=== PATIENT | male | born 1950 | race Caucasian/White ===

== ENCOUNTER 2022-04-25 20:21 | Inpatient (IN) | payer MEDICARE, OTHER, SELFPAY ==
[2022-04-25] VITALS (24 sets, daily range): BP systolic 138–186; BP diastolic 61–92; PULSE 70–102; RESP 13–30; TEMP 36.8–39.6; O2SAT 90–100
--- NOTE | ~2022-04-25 | XR_ITS ---
EXAMINATION: 05/04/2022 08:30 DATE: 05/04/2022 09:19 CDT INDICATION: Evaluate cystic duct patency TECHNIQUE: Intraoperative cholangiogram with a single contrast run(s) provided for review. FINDINGS: There is cannulation and contrast administration into the cystic duct remnant. There are se veral rounded filling defects in the distal common bile duct, consistent with choledocholithiasis. Th ere are small filling defects in the cystic duct, compatible with stones. IMPRESSION: 1. Multiple filling defects in the cystic duct and the distal common bile duct, consistent with ston es. Please refer to procedural report for details. Reviewed, dictated and finalized at location B. IMPRESSION: 1. Multiple filling defects in the cystic duct and the distal common bile duct , consistent with stones. Please refer to procedural report for details.
--- NOTE | ~2022-04-25 | XR_ITS ---
EXAMINATION: XR chest 1V portable Exam Date/Time: 04/25/2022 20:45 CDT HISTORY: AMS, PT POOR HISTORIAN Comparison: 02/11/2004. RESULT: Lines, tubes, and devices: None. Lungs and pleura: Senescent change, otherwise clear. Cardiomediastinal silhouette: Stable. Other: No acute osseous or upper abdominal finding. IMPRESSION: No acute cardiopulmonary process. Reviewed, dictated and finalized at location K.
--- NOTE | ~2022-04-25 | XR_ITS ---
XR chest 1V portable DATE: 04/28/2022 14:29 INDICATION: Sepsis TECHNIQUE: Portable upright AP views on 05/08/2022 at 1424 hours COMPARISON: 04/25/2022 portable supine AP chest FINDINGS: Heart size appears within normal range considering magnification associated with AP project ion. There is aortic arch calcification. There is pulmonary vascular congestion and redistribution and prominence of the minor fissure, sugges ting congestive change and subpleural edema. There are mild perihilar and to a greater extent lower lung zone infiltrates which may be due to pulm onary edema and/or pneumonia. No pleural effusion is evident. No pneumothorax. IMPRESSION: Pulmonary vascular congestion, subpleural edema and bilateral central and lower lung infi ltrates which may be due to pulmonary edema. Pneumonia is not excluded. Reviewed, dictated and finalized at location B. IMPRESSION: Pulmonary vascular congestion, subpleural edema and bilateral centr al and lower lung infiltrates which may be due to pulmonary edema. Pneumonia is not excluded.
--- NOTE | ~2022-04-25 | XR_ITS ---
EXAMINATION: XR ERCP DATE: 05/05/2022 12:40 INDICATION: Choledocholithiasis TECHNIQUE: Three intraoperative fluoroscopic images obtained during endoscopic retrograde cholangiopa ncreatography (ERCP) are submitted for review. Total fluoroscopic time was 131.6 seconds. COMPARISON: None. FINDINGS: Fluoroscopic images demonstrate stones in the mildly dilated common bile duct. A cholecysto stomy tube is noted. Contrast is seen in the gallbladder which demonstrates stones. IMPRESSION: 1. Choledocholithiasis with mildly dilated common bile duct. Please refer to the ERCP procedure note for additional details. Reviewed, dictated and finalized at location A. IMPRESSION: 1. Choledocholithiasis with mildly dilated common bile duct. Please refer to th e ERCP procedure note for additional details.
--- NOTE | ~2022-04-25 | XR_ITS ---
EXAM: XR pelvis 1-2V DATE: 04/25/2022 20:55 HISTORY: AMS w/ frequent falls . COMPARISON: None available. FINDINGS: Normal mineralization. No fracture or dislocation. No lytic or blastic lesion. Severe lowe r lumbar degenerative disc disease. Moderate right and mild left hip osteoarthritis. Pelvic phlebolit hs. No erosion or periosteal change. Soft tissues within normal limits. IMPRESSION: No acute osseous finding in the pelvis. Reviewed, dictated and finalized at location K.
--- NOTE | ~2022-04-25 | US_ITS ---
EXAMINATION: US right upper quadrant DATE: 04/28/2022 08:46 INDICATION: Acute cholecystitis. TECHNIQUE: Multiple grayscale and Doppler ultrasound images of the abdomen were obtained. COMPARISON: CT abdomen and pelvis 04/27/2022 FINDINGS: The visualized portions of the head and body of the pancreas are normal. The liver is angela l without focal lesion. There is normal flow in main portal vein. The gallbladder is distended. There are gallstones in the gallbladder. Gallbladder wall thickening is noted. There was no sonographic Mu rphy sign. The common duct is normal and measures 5 mm. There is a small volume of perihepatic ascite s. IMPRESSION: 1. Acute cholecystitis. 2. Small volume of perihepatic ascites. Reviewed, dictated and finalized at location A.
--- NOTE | ~2022-04-25 | US_ITS ---
EXAMINATION: US perc cholecystostomy w imag DATE: 04/28/2022 16:11 INDICATION: Acute cholecystitis. TECHNIQUE: The procedure including the risks, benefits, and alternatives was discussed with the patie nt and his daughter (by phone). Risks discussed included bleeding including hemorrhage and bile perit onitis. Oral and written consent were obtained. A timeout was performed to verify the patient's na me, date of , and procedure to be performed. The skin overlying the liver and gallbladder was pr epped and draped in usual sterile fashion. Anesthetic was administered with 1% lidocaine subcutaneou sly. An 8.5 Fr catheter was inserted through liver parenchyma into the gallbladder by trocar [employer] ue. The metal stiffener and trocar needle were removed, and the pigtail tip was locked. Bile was aspi rated and sent for culture. The catheter was stitched to the skin with suture. There were no immediat e complications. FINDINGS: Ultrasound images demonstrate the catheter within the gallbladder. 10 mL bile was aspirated . IMPRESSION: 1. Successful ultrasound-guided cholecystostomy tube placement. 2. 10 mL clear bile was sent for aerobic and anaerobic cultures. 3. A catheter cholangiogram may be performed not less than 48 hours after tube placement if clinicall y indicated to assess cystic duct patency. If cholecystectomy is not eventually performed and the inf ectious episode has resolved, the tube may be removed over a guidewire, preferably not less than 3 we eks after placement to allow time for a mature catheter tract to form to prevent bile leakage and per itonitis. Reviewed, dictated and finalized at location A. IMPRESSION: 1. Successful ultrasound-guided cholecystostomy tube placement. 2. 10 mL clear bile was sent for aerobic and anaerobic cultures. 3. A catheter cholangiogram may be performed not less than 48 hours after tube placement if clinically indicated to assess cystic duct patency. If cholecystec milagros is not eventually performed and the infectious episode has resolved, the t ube may be removed over a guidewire, preferably not less than 3 weeks after diego cement to allow time for a mature catheter tract to form to prevent bile leakag e and peritonitis.
--- NOTE | ~2022-04-25 | CT_ITS ---
EXAMINATION: CT abdomen pelvis wo con DATE: 04/27/2022 14:17 INDICATION: sepsis, bactermia TECHNIQUE: Computed tomography (CT) of the abdomen and pelvis was performed without intravenous contr ast. Automated exposure control and iterative reconstruction technique were employed. The dose-length product was 768.99 mGy-cm. COMPARISON: None. FINDINGS: Lower thorax: Bibasilar atelectasis/scar. Coronary artery calcifications. Small right and trace left pleural effusions. Liver: Normal. Biliary/Gallbladder: Gallbladder wall edema with mild surrounding inflammatory change. Gallstones. No bile duct dilation. Pancreas: No mass or duct dilation. Spleen: Normal. Adrenals:1 cm right adrenal adenoma. Kidneys: 1.3 cm exophytic right midpole cyst. Mild perinephric stranding. GI tract: No small or large bowel dilation. Normal appendix. Mild pericolonic inflammatory change of the hepatic flexure. Mesentery/Peritoneum: No ascites, mass, or free air. Retroperitoneum: No mass. Pelvis: Pelvic organs are within normal limits. Soft Tissues: Mild bilateral gynecomastia. Mild body wall edema. Bones: No acute osseous finding. IMPRESSION: Small right and trace left pleural effusions. Gallbladder wall edema with inflammatory change may ref lect acute cholecystitis in the appropriate clinical context, consider right upper quadrant ultrasoun d. Adjacent pericolonic inflammatory change at the hepatic flexure is presumed to be reactive to the gallbladder process. Reviewed, dictated and finalized at [facility]. IMPRESSION: Small right and trace left pleural effusions. Gallbladder wall edema with infla mmatory change may reflect acute cholecystitis in the appropriate clinical cont ext, consider right upper quadrant ultrasound. Adjacent pericolonic inflammator y change at the hepatic flexure is presumed to be reactive to the gallbladder p rocess.
--- NOTE | ~2022-04-25 | CT_ITS ---
EXAMINATION: CT cervical spine wo con DATE: 04/25/2022 21:40 INDICATION: Fall. Head and neck injury. TECHNIQUE: Computed tomography (CT) of the cervical spine was performed without intravenous contrast. Automated exposure control and iterative reconstruction technique were employed. Exam dose: 421.63 mGy-cm total exam DLP. COMPARISON: None FINDINGS: There is fusion of the apophyseal joints on the right at C2-3 and degenerative change of th e apophyseal joints elsewhere in the cervical spine. Moderately severe degenerative disc disease at C6-7 and moderate degenerative disc disease at the rem aining cervical interspaces. Uncovertebral joint spurring in the mid and lower cervical spine. No fracture or dislocation or locked facet or prevertebral soft tissue swelling. C1 and C2 are normal ly aligned and the odontoid process is intact.. IMPRESSION: Cervical spondylosis; no fracture or dislocation or locked facet Reviewed, dictated and finalized at Location A. Reviewed, dictated and finalized at location A.
--- NOTE | ~2022-04-25 | CT_ITS ---
EXAMINATION: CT brain wo con DATE: 04/25/2022 21:40 INDICATION: Altered mental state, frequent falls TECHNIQUE: Computed tomography (CT) of the head was performed without intravenous contrast. The mA wa s adjusted according to patient size. Iterative reconstruction technique was employed. Exam dose: 68 1.00 mGy-cm total exam DLP. COMPARISON: None FINDINGS: No intracranial mass lesion or hemorrhage or cerebrovascular accident. No midline shift or mass effect. Bilateral carotid siphon internal carotid artery calcifications. There is nonspecific diminished atte nuation of the cerebral white matter, likely due to chronic small vessel ischemic changes. No subdura l or epidural hematoma is detected. Mild to moderate cerebral cortical volume loss. There is an opacified posterior left ethmoid air cells and mild ethmoid septal soft tissue thickening , primarily on the left. Minimal inferior right maxillary sinus mucosal periosteal soft tissue thicke arash. The paranasal sinuses and mastoid air cells are otherwise normally developed and aerated. IMPRESSION: Cerebral atherosclerosis and chronic small vessel ischemic changes of cerebral white mat ter No acute intracranial finding Reviewed, dictated and finalized at Location A. Reviewed, dictated and finalized at location A. IMPRESSION: Cerebral atherosclerosis and chronic small vessel ischemic changes of cerebral white matter No acute intracranial finding
--- NOTE | 2022-04-25 20:42 | ECG_ITS ---
Measurements Intervals [place] Rate: 101 P: 31 HI: 137 QRS: -25 QRSD: 94 T: 37 QT: 352 QTc: 456 Interpretive Statements POOR DATA QUALITY BECAUSE OF BASELINE ARTIFACT SINUS TACHYCARDIA BORDERLINE LEFT AXIS DEVIATION [QRS AXIS < -20] NONSPECIFIC ST SEGMENT CHANGE NO PREVIOUS ECG AVAILABLE FOR COMPARISON Electronically Signed On 04-26-2022 8:23:34 CDT by Jayy Badillo M.D.
--- NOTE | 2022-04-25 20:46 | ED.GENADULT ---
HPI - General Adult General Chief complaint: Altered Mental Status Stated complaint: confusion s/p fall Time Seen by Provider: 04/25/22 20:41 History of Present Illness HPI narrative: This is a 71-year-old male history of Parkinson's per day ED for altered mental status and frequent falls. Patient was found down in his room. He was febrile. He is unable to provide any information as he is nonverbal at this time. Related Data Allergies Allergy/AdvReac Type Severity Reaction Status Date / Time No Known Allergies Allergy Verified 04/25/22 21:10 Review of Systems Review of Systems: ROS unobtainable: Yes unobtainable due to medical condition PMFSH Past Medical History Medical History Anxiety Hypertension Neuropathy Parkinsons Social History Social History Social History: Unknown Exam Narrative: APPEARANCE: patient is lying supine in bed. He is nonverbal. He is warm to the touch. Head atraumatic. EYES: PERRLA/EOMI, NOSE: Normal no drainage NECK: Supple, Trachea midline RESPIRATORY: CTAB, No increased work of breathing. CARDIOVASCULAR: S1S2 appreciated ABDOMINAL: Soft, nontender, nondistended, MUSCULOSKELETAl: No obvious deformities exam normal with no evidence of infection or crepitus. NEURO: Alert. Moving 4/4 extremities SKIN:: Skin is warm, flushed. no skin breakdown. PSYCHIATRIC: Nonverbal EKG interpretation: Rhythm Sinus Tachy, Rate 101, [place], [place] -[normal], QRS [narrow], QTC [normal], T waves -[negative for concerning inversions], ST Segments - [Negative for concerning elevations] Final interpretations: Sinus Tachycardia Course Vital Signs Vital signs: Vital Signs Temperature 103.2 F H 04/25/22 20:25 Pulse Rate 100 04/25/22 20:25 Respiratory Rate 19 04/25/22 20:25 Blood Pressure 186/84 H 04/25/22 20:25 Pulse Oximetry 97 04/25/22 20:25 Temperature 98.3 F 04/25/22 23:47 Pulse Rate 78 04/25/22 23:01 Respiratory Rate 21 H 04/25/22 23:01 Blood Pressure 138/74 04/25/22 23:01 Pulse Oximetry 97 04/25/22 22:04 Procedures Lumbar Puncture Lumbar Puncture #1: Lumbar Puncture Date: 04/26/22 Time Out Performed: Yes Patient Position: left lateral decubitus Skin Prep: Povidone-Iodine 1%, Sterile Prep/Drape and Asepetic Technique Anesthetic: lidocaine 1% and with epi Amount of anesthesia used (mL): 3 Spinal Needle Gauge: 20G Interspace Used: L4-L5 Complications: unable to obtain CSF Medical Decision Making MDM Narrative Medical decision making narrative: this is a 71-year-old male presents to ED for altered mental status. He is febrile. A sepsis workup has been ordered. He has been given a 30 cc/kilogram bolus. CTs of the head C-spine are ordered. Patient's workup was significant for an elevated white blood cell count. Patient will be started on cefepime and vanco. CT head and C-spine were unremarkable. The patient's sepsis was negative for a source. Given this patient has altered mental status and LP was attempted. LP was unsuccessful. At this time patient vitalized vital signs have improved. His mentation is improved slightly although is still confused. The patient will be admitted hospital for further management. Patient will be admitted by Dr. Shane. Vital Signs Vital Signs: Vital Signs Temperature 103.2 F H 04/25/22 20:25 Pulse Rate 100 04/25/22 20:25 Respiratory Rate 19 04/25/22 20:25 Blood Pressure 186/84 H 04/25/22 20:25 Pulse Oximetry 97 04/25/22 20:25 Temperature 98.3 F 04/25/22 23:47 Pulse Rate 78 04/25/22 23:01 Respiratory Rate 21 H 04/25/22 23:01 Blood Pressure 138/74 04/25/22 23:01 Pulse Oximetry 97 04/25/22 22:04 Lab Data Result diagrams: 04/25/22 21:08 04/25/22 21:08 Labs: L
[2022-04-25 21:24] LABS: Basophils Percent Auto 0.2 % (0.2-1.2); Hematocrit 35.4 % (42.0-52.0); Hemoglobin 12.1 g/dL (14.0-18.0); Immature Granulocyte Absolute 0.06 K/mm3 (0.00-0.031); Immature Granulocyte Percent A 0.5 % (0-0.5); Lymphocytes Absolute Auto 0.49 K/mm3 (0.9-3.2); Lymphocytes Percent Auto 3.9 % (18.3-44.2); Mean Corpuscular HGB Conc 34.2 g/dl (32-36); Mean Corpuscular Hemoglobin 31.7 pg (26-34); Mean Corpuscular Volume 92.7 fl (80-100); Mean Platelet Volume 10.2 fl (7.4-10.4); Monocytes Absolute Auto 0.7 K/mm3 (0.1-0.6); Monocytes Percent Auto 5.6 % (2.6-8.5); Neutrophils Absolute Auto 11.3 K/mm3 (1.3-6.7); Neutrophils Percent Auto 89.8 % (45.5-73.1); Platelet Count Result 169 k/mm3 (150-375); Red Blood Count 3.82 M/mm3 (4.6-6.20); Red Cell Distribution Width 12.5 % (11.5-14.5); White Blood Count 12.6 K/mm3 (4.5-10.0)
[2022-04-25 21:34] LABS: Lactic Acid Reflex 2.1 mmol/L (0.7-2.0)
[2022-04-25 21:35] LABS: Appearance Urine Clear (Clear); Bilirubin Urine 1+ (Negative); Blood Urine Negative (Negative); Color Urine Yellow (Yellow); Glucose Urine UA Negative (Negative); Ketones Urine 1+ mg/dL (Negative); Leukocyte Esterase Ur Negative LEU/UL (Negative); Nitrate Urine Negative (Negative); Protein Urine 1+ mg/dL (Negative)
[2022-04-25 21:35] LABS: INR 1.2
[2022-04-25 21:37] LABS: Alanine Aminotransferase 11 U/L (6-50); Albumin Level 3.9 g/dL (3.5-5.1); Alkaline Phosphatase 97 U/L (38-126); Anion Gap 11 mmol/L (8-16); Aspartate Amino Transferase 28 U/L (17-59); Bilirubin,Total 1.4 mg/dL (0.2-1.3); Blood Urea Nitrogen 21 mg/dL (9-20); CRP 5.6 mg/dL (<1.0); Calcium 8.9 mg/dL (8.4-10.2); Carbon Dioxide 27 mmol/L (22-30); Chloride 96 mmol/L (98-107); Estimated CRCL calculation 63 ml/min; Estimated Glomerular Filt Rate > 60; Glucose 100 mg/dL (65-110); Lipase 63 U/L (23-300); Potassium 3.5 mmol/L (3.4-5.0); Sodium 134 mmol/L (137-145)
[2022-04-25 21:43] LABS: Add Urine Microscopic? YES; Bacteria Urine Trace /hpf; Mucus Urine Rare /lpf; WBC Urine 0-3 /hpf
[2022-04-25 21:44] LABS: NT Pro B Type Natriuretic Pept 600 pg/mL (5-100)
[2022-04-25] MEDS: SODIUM CHLORIDE 0.9% IV 1,000 ML 999 ML IV CONT ×3 (21:56→21:57)
[2022-04-25 22:03] LABS: SARS-CoV-2 RNA PCR Negative
[2022-04-25 22:27] LABS: Influenza A QL RT-PCR Negative (Negative); Influenza B QL RT-PCR Negative (Negative)
[2022-04-26] VITALS (34 sets, daily range): BP systolic 89–166; BP diastolic 35–85; PULSE 65–87; RESP 9–26; TEMP 36.1–37.6; O2SAT 95–100; BMI 28.0; BMI 28.5
[2022-04-26 00:21] LABS: Reflex Lactic Acid Yes or No Add Lactic
--- NOTE | 2022-04-26 00:32 | PM.IMHP ---
H&P: HPI History of Present Illness Date/Time: 04/26/22 00:32 Chief Complaint: Altered mental status Narrative: 71-year-old male with past medical history of Parkinson's disease, hypertension, and anxiety who presented to the ER after multiple falls and acute onset of altered mental status. EMS was called on the patient earlier in the day as he had slid out of his chair having a fall. EMS helped with lift assist and left. Later in the evening the patient again fell and the patient's girlfriend called EMS again. At that time the patient was noted to be febrile with a T-max of 103.2? on arrival to the ER. In route to the hospital the patient became unresponsive and was unresponsive on initial presentation. After the patient's fever was treated in the patient received IV fluids he was arousable and actually answered all of my questions appropriately. The patient was alert and oriented x4 at the time of my evaluation. He reports that he has been feeling his usual state of health except for when he fell out of his lift chair this morning he was weaker than usual in could not get himself up. He denies any headache, visual changes, lightheadedness, dizziness, chest pain, shortness of breath, cough, congestion, sore throat, rhinorrhea, did dysuria or flank pain. He denies any head pain. He denies any nausea or vomiting. He has not had any changes in stool output. He denies any recent ill contacts. He states that he is vaccinated against COVID he got the [employer] vaccine and then received a booster. Given his initial presentation with unresponsive status ER physician did attempted lumbar puncture. Lumbar puncture was unsuccessful. Patient had been given empiric antibiotic therapy cefepime and vancomycin for sepsis of uncertain etiology. Patient does not nuchal rigidity. COVID and influenza PCR were negative in the ER. The patient did have lactic acidosis initially and received 30 mL/kilos fluid bolus in the ER. Lactic acidosis resolved. The patient was seen and examined just prior to midnight while patient was still in the ER. The patient was not admitted to the hospital until later (well after midnight) after LP attempt. Review of Systems Review of Systems: 12 systems were reviewed with pertinent positives and negatives per HPI. Except as documented in the HPI, all other systems were reviewed and are negative. [facility] Past Medical History Medical History (Updated 04/26/22 @ 03:29 by Sharon Shane DO) Anxiety Hypertension Neuropathy Parkinsons Surgical History Surgical History (Updated 04/26/22 @ 03:11 by Sharon Shane DO) History of lumbar surgery Family History Family History (Updated 04/26/22 @ 03:11 by Sharon Shane DO) Other Unknown family medical history Social History Social History (Updated 04/26/22 @ 03:12 by Sharon Shane DO) Social History: Patient denies any history of tobacco alcohol or illicit substance use. He lives with his girlfriend of 7 years. He uses a lift chair at home and ambulates with a walker. Surrogate decision maker: Daughter Meds Home Medications and Allergies Home Medications Medication Instructions Recorded Confirmed Type buspirone 5 mg tablet mg 04/26/22 History carbidopa 25 mg-levodopa 250 mg tablet 04/26/22 History tablet escitalopram oxalate 20 mg tablet mg 04/26/22 History Allergies Allergy/AdvReac Type Severity Reaction Status Date / Time No Known Allergies Allergy Verified 04/25/22 21:10 Vital Signs Vital Signs - 24 hr 04/25/22 20:25 04/25/22 21:09 04/25/22 21:10 Temperature 103.2 F H Pulse Rate 100 91 91 Respiratory Rate 19 22 H 21 H Blood Pressure 186/84 H 165/69 H Pulse Oximetry 97 95 95 04/25/22 21:11 04/25/22 21:15 04/25/22 21:16 Temperature Pulse Rate 89 90 90 Respiratory Rate 24 H 25 H 23 H Blood Pressure 170/64 H Pulse Oximetry 95 90 95 04/25/22 21:37 04/25/22 21:45 04/25/22 2
[2022-04-26 00:48] LABS: Lactic Acid 1.7 mmol/L (0.7-2.0)
[2022-04-26] MEDS: KETOROLAC 15 MG/ML VIAL (*BKC) IV PUSH (01:29)
[2022-04-26] MEDS: MIDAZOLAM HCL (*CRX) 2 MG/2 ML VIAL IV PUSH (01:46)
[2022-04-26] MEDS: SODIUM CHLORIDE 0.9% IV 1,000 ML 999 ML IV CONT (02:00)
--- NOTE | 2022-04-26 02:00 | PC.NURSE ---
bilateral soft wrist restraints removed by RN while MD and RN at bedside to do Lumbar Puncture. Pt tolerated procedure very well. much more alert and oriented than upon arrival to ER. Pt knows he is in the Hospital in [place] and thought it was March of 2022, but reorients well. 0230- restraints left off at this time due to pt no longer pulling at tubes and following directions well. Pt to lay flat for at least 1hr after LP.
--- NOTE | 2022-04-26 04:49 | PC.NURSE ---
Home medications reviewed with patient and placed in home med drawer. Chart marked as such and patient notified. Dr Shane called to make aware patient takes parkinsons meds as he needs them .
[2022-04-26 05:11] LABS: Hematocrit 31.7 % (42.0-52.0); Hemoglobin 10.5 g/dL (14.0-18.0); Mean Corpuscular HGB Conc 33.1 g/dl (32-36); Mean Corpuscular Hemoglobin 31.4 pg (26-34); Mean Corpuscular Volume 94.9 fl (80-100); Mean Platelet Volume 10.4 fl (7.4-10.4); Platelet Count Result 115 k/mm3 (150-375); Red Blood Count 3.34 M/mm3 (4.6-6.20); Red Cell Distribution Width 12.7 % (11.5-14.5); White Blood Count 9.1 K/mm3 (4.5-10.0)
[2022-04-26 05:13] LABS: Alanine Aminotransferase 9 U/L (6-50); Albumin Level 2.9 g/dL (3.5-5.1); Alkaline Phosphatase 87 U/L (38-126); Anion Gap 7 mmol/L (8-16); Aspartate Amino Transferase 64 U/L (17-59); Bilirubin,Total 1.6 mg/dL (0.2-1.3); Blood Urea Nitrogen 18 mg/dL (9-20); Calcium 7.9 mg/dL (8.4-10.2); Carbon Dioxide 23 mmol/L (22-30); Chloride 102 mmol/L (98-107); Estimated CRCL calculation 63 ml/min; Estimated Glomerular Filt Rate > 60; Glucose 64 mg/dL (65-110); Potassium 2.9 mmol/L (3.4-5.0); Sodium 132 mmol/L (137-145)
[2022-04-26] MEDS: ACETAMINOPHEN 325 MG TABLET 650 MG PO (05:43)
--- NOTE | 2022-04-26 06:01 | PC.NURSE ---
This patient, Bernard Cristobal, was admitted to IMU Room 207-01 at 0405. Patient/family oriented to hospital policies and general routines including ID bracelet, bed and alarms, visiting hours, pain management, procedures, bathroom and other care routines, personal items, smoking policy, room service/diet, and visiting hours. Information on how to activate the Rapid Response Team has been discussed. Patient/Family are encouraged to report perceived risks to care and to ask questions if they do not understand what they are told or what they should do.
[2022-04-26 06:24] LABS: Band Neutrophils Percent 14 % (0-6); Lymphocytes Absolute Manual 0.18 K/mm3 (1.1-4.5); Lymphocytes Percent Manual 2 % (18-44); Monocytes Absolute Manual 0.18 K/mm3 (0.1-0.90); Monocytes Percent Manual 2 % (3-9); Neutrophils Absolute Manual 8.73 K/mm3 (1.3-6.7); Neutrophils Percent Manual 82 % (46-73); Total Cells Counted 100
[2022-04-26] MEDS: ENOXAPARIN 40 MG/0.4 ML SYRINGE SUB-Q (08:25)
[2022-04-26] MEDS: POTASSIUM CHLORIDE 20 MEQ TABLET 40 MEQ PO (08:25)
[2022-04-26] MEDS: lisinopriL 20 MG TABLET 40 MG PO (08:25)
[2022-04-26] MEDS: ESCITALOPRAM OXALATE 10 MG TABLET 20 MG PO (08:25)
--- NOTE | 2022-04-26 11:07 | PM.IMPN ---
Progress Note: A&P Assessment and Plan (1) Sepsis: Qualifiers: Sepsis acute organ dysfunction status: with acute organ dysfunction Sepsis type: sepsis due to unspecified organism Severe sepsis acute organ dysfunction type: encephalopathy Severe sepsis shock status: without septic shock Qualified Code(s): A41.9 - Sepsis, unspecified organism; R65.20 - Severe sepsis without septic shock; G93.40 - Encephalopathy, unspecified Code(s): A41.9 - Sepsis, unspecified organism Status: Acute Assessment and Plan: Continue with IV antibiotics cultures are pending (2) Altered mental status: Qualifiers: Altered mental status type: delirium Qualified Code(s): R41.0 - Disorientation, unspecified Code(s): R41.82 - Altered mental status, unspecified Status: Acute Assessment and Plan: workup is in progress, will continue with IV antibiotics (3) Parkinsons: Code(s): G20 - Parkinson's disease Status: Acute Assessment and Plan: stable on current meds (4) Hypertension: Code(s): I10 - Essential (primary) hypertension Status: Acute Assessment and Plan: stable on med Plan The patient presented to the ER with altered mental status and met sepsis criteria with fever, tachycardia, leukocytosis. He received 30 mL/kilos fluid bolus and blood cultures were obtained. LP was attempted but was unsuccessful. The patient does not have any specific symptoms to indicate meningitis such as nuchal rigidity. He could simply have transient altered mental status verses delirium due to acute infection. Expect Naheed given the short nature of his altered mental status. He could also been unresponsive due to syncopal event. Telemetry demonstrated sinus tachycardia with artifact from the patient's Parkinson's. Patient's condition improved after IV fluids and antipyretic therapy. If altered mental status recurs or persist and no other source of infection is found we may need to proceed with repeat attempted LP on Wednesday. Otherwise will wait blood cultures and monitor. Will resume the patient's home Parkinson's medications once home med rec has been verified. The patient is currently not hypertensive will hold antihypertensives and monitor vitals closely. Additional Plan Patient has been admitted as inpatient status and will require greater than 2 midnight hospital stay for evaluation of sepsis of uncertain primary. Subjective Date/time seen: 04/26/22 11:07 Patient was seen during the morning rounds today. Still has mild confusion. No shortness of breath or chest pain. No abdominal pain, no nausea, no vomiting. Review of Systems Review of Systems: All systems reviewed & are unremarkable except as noted in HPI and below (the history and physical exam.) Exam Narrative: Weight 93.3 kg BMI 29.5 Const: Other: No acute distress, well-developed well-nourished, appears stated age HENMT: Other: Head is normocephalic atraumatic, mucous membranes are dry, posterior oropharynx not well visualized, fair dentition Eyes: Other: Pupils are equal and reactive, no scleral icterus, no conjunctival pallor Neck: Other: Node anterior cervical lymphadenopathy, no thyromegaly Resp: Other: Clear to auscultation bilaterally, no increased work of breathing Cardio: Other: Regular rate, regular rhythm, 2+ bilateral radial pedal pulses GI: Other: Soft, nontender, nondistended, no organomegaly, no rebound, no guarding, positive bowel sounds Skin: Other: Normal temperature, non jaundice, no pallor Neuro: Other: Alert and oriented x4, speech is clear, no facial asymmetry, pill rolling tremor, no gross motor deficits noted, no nuchal rigidity Extrem: Other: No clubbing, cyanosis or edema, 5/5 strength bilateral upper and lower extremities, soft wrist restraints in place bilateral Psych: Other: Pleasant and cooperative, appropriate mood, anxious Objectiv
[2022-04-26] MEDS: MAGNESIUM OXIDE 200 MG TABLET PO ×2 (12:09→19:59)
[2022-04-26] MEDS: POTASSIUM CHLORIDE INJ 40 MEQ in SODIUM CHLORIDE 0.9% IV 500 ML 130 MEQ IVPB (12:09)
[2022-04-26] MEDS: CARBIDOPA/LEVODOPA 25/250 MG TABLET 1 TABLET PO ×3 (12:36→19:59)
--- NOTE | 2022-04-26 16:52 | PC.NURSE ---
This patient, Bernard Cristobal, was received from IMU on 04/26/22 at 1652. Patient/family oriented to unit policies and routines
[2022-04-27] VITALS (11 sets, daily range): BP systolic 120–137; BP diastolic 57–68; PULSE 53–75; RESP 16–18; TEMP 36.2–37.3; O2SAT 98–100
[2022-04-27] MEDS: CARBIDOPA/LEVODOPA 25/250 MG TABLET 1 TABLET PO ×4 (02:49→22:06)
[2022-04-27 06:01] LABS: Hematocrit 32.3 % (42.0-52.0); Hemoglobin 10.3 g/dL (14.0-18.0); Immature Platelet Fraction Pct 6.3 % (0.9-11.2); Mean Corpuscular HGB Conc 31.9 g/dl (32-36); Mean Corpuscular Hemoglobin 31.1 pg (26-34); Mean Corpuscular Volume 97.6 fl (80-100); Mean Platelet Volume 10.8 fl (7.4-10.4); Platelet Count Result 123 k/mm3 (150-375); Red Blood Count 3.31 M/mm3 (4.6-6.20); Red Cell Distribution Width 13.2 % (11.5-14.5); White Blood Count 14.1 K/mm3 (4.5-10.0)
[2022-04-27 06:10] LABS: Alanine Aminotransferase 9 U/L (6-50); Albumin Level 2.9 g/dL (3.5-5.1); Alkaline Phosphatase 97 U/L (38-126); Anion Gap 6 mmol/L (8-16); Aspartate Amino Transferase 119 U/L (17-59); Bilirubin,Total 0.9 mg/dL (0.2-1.3); Blood Urea Nitrogen 26 mg/dL (9-20); Calcium 8.2 mg/dL (8.4-10.2); Carbon Dioxide 20 mmol/L (22-30); Chloride 106 mmol/L (98-107); Estimated CRCL calculation 67 ml/min; Estimated Glomerular Filt Rate > 60; Glucose 121 mg/dL (65-110); Potassium 4.1 mmol/L (3.4-5.0); Sodium 132 mmol/L (137-145)
[2022-04-27] MEDS: ESCITALOPRAM OXALATE 10 MG TABLET 20 MG PO (08:21)
[2022-04-27] MEDS: lisinopriL 20 MG TABLET 40 MG PO (08:21)
[2022-04-27] MEDS: ENOXAPARIN 40 MG/0.4 ML SYRINGE SUB-Q (08:21)
[2022-04-27] MEDS: MAGNESIUM OXIDE 200 MG TABLET PO ×2 (08:21→19:55)
[2022-04-27 09:00] LABS: Creatine Kinase 2286 U/L (55-170)
[2022-04-27 10:31] LABS: Vancomycin Trough 15.3 ug/mL (10.0-20.0)
--- NOTE | 2022-04-27 13:03 | PM.IMPN ---
Progress Note: A&P Assessment and Plan (1) Sepsis: Qualifiers: Sepsis acute organ dysfunction status: with acute organ dysfunction Sepsis type: sepsis due to unspecified organism Severe sepsis acute organ dysfunction type: encephalopathy Severe sepsis shock status: without septic shock Qualified Code(s): A41.9 - Sepsis, unspecified organism; R65.20 - Severe sepsis without septic shock; G93.40 - Encephalopathy, unspecified Code(s): A41.9 - Sepsis, unspecified organism Status: Acute Assessment and Plan: The patient presented to the ER with altered mental status and met sepsis criteria with fever, tachycardia, leukocytosis and confusion. He received 30 mL/kilos fluid bolus and blood cultures were obtained. LP was attempted but was unsuccessful. The patient does not have any specific symptoms to indicate meningitis such as nuchal rigidity. CXR clear. UA noted and not consistent with UTI. UCx pending. BCx (1of2) growing GNB anaerobic bottle. Lactiacid level normal no. WBC did normalize but climbed to 14K but suspect this is a lag and should improve. Currently on Vanco and Primaxin. Concern for GI source, possibly GB. Will check CT A/P. Stop Vanco. Follow up on culture results. Remove Barragan. Continue Primaxin (2) Altered mental status: Qualifiers: Altered mental status type: delirium Qualified Code(s): R41.0 - Disorientation, unspecified Code(s): R41.82 - Altered mental status, unspecified Status: Acute Assessment and Plan: Patient with altered mental status on admission. [place] related to his fever and sepsis symptoms. Fever has resolved. Bacteremia currently being treated. Confusion has resolved. Continue to follow. (3) Syncope: Code(s): R55 - Syncope and collapse Status: Acute Assessment and Plan: Patient has syncopal episode associated with falls. Cervical spine CT showed no fracture dislocation. CT the brain showed atherosclerosis with chronic small vessel ischemic changes but no acute findings. Suspect the syncopal episode of falls were related to above. Mental status has improved. Continue PT and OT. (4) Rhabdomyolysis: Code(s): M62.82 - Rhabdomyolysis Status: Acute Assessment and Plan: Patient with elevated AST with normal ALT. Given his falls and time on the ground, total CK was checked. Total CK was 2300. Will start IV fluids. Monitor for improvement. Renal function is stable. (5) Hypertension: Code(s): I10 - Essential (primary) hypertension Status: Acute Assessment and Plan: Patient's blood pressure was reviewed on 04/27 Blood pressure remains well controlled. Will continue current medications. (6) Parkinsons: Code(s): G20 - Parkinson's disease Status: Acute Assessment and Plan: Patient's med list shows that he takes Sinemet as needed for tremors. Continue the same; continue PT and OT. Plan DVT prophylaxis: Lovenox Code status: Full Diet: Regular Subjective Date/time seen: 04/27/22 13:03 Interval history: 71yo male with PD here for fevers and sepsis. Assuming care. Chart reviewed. Patient denies any nausea or vomiting. No odynophagia or dysphagia. He is actually eating very well. He denies any shortness of breath, cough or chest pain. No myalgias. He did fall and laid on the floor overnight before coming to the hospital. He also states that he developed epigastric pain after meal. He still has his gallbladder. Exam Narrative: AF 97.2 137/68 56 18 99% ra Gen - NARD sitting up in the chair finishing his lunch Chest - few basilar rhonchi o/w clear CV - RRR S1/S2. Tele showig NSR with occasional sinus arrhythmias Abd - Soft, NT/ND, Positive BS - Barragan secured draining clear yellow urine Ext - trace pedal edema. Negative Marisela's Neuro - Alert and appropriate. Feeding himself. masked facies Psych - Nml mood and affect Skin - War
[2022-04-27] MEDS: SODIUM CHLORIDE 0.9% IV 1,000 ML 70 ML IV CONT (14:57)
[2022-04-28] VITALS (21 sets, daily range): BP systolic 94–156; BP diastolic 54–104; PULSE 64–164; RESP 16–31; TEMP 36.7–39.2; O2SAT 92–99
[2022-04-28] MEDS: SODIUM CHLORIDE 0.9% IV 1,000 ML 70 ML IV CONT (03:10)
[2022-04-28] MEDS: CARBIDOPA/LEVODOPA 25/250 MG TABLET 1 TABLET PO ×2 (03:10→19:49)
[2022-04-28] MEDS: ALBUTEROL SULFATE NEB 2.5 MG/3 ML INH INHALATION (04:40)
[2022-04-28 05:49] LABS: Basophils Percent Auto 0.2 % (0.2-1.2); Eosinophils Percent Auto 0.3 % (0-4.4); Hematocrit 38.6 % (42.0-52.0); Immature Granulocyte Absolute 0.07 K/mm3 (0.00-0.031); Immature Granulocyte Percent A 0.6 % (0-0.5); Lymphocytes Percent Auto 6.5 % (18.3-44.2); Mean Corpuscular HGB Conc 31.1 g/dl (32-36); Mean Corpuscular Hemoglobin 31.6 pg (26-34); Mean Corpuscular Volume 101.6 fl (80-100); Mean Platelet Volume 10.5 fl (7.4-10.4); Monocytes Absolute Auto 0.8 K/mm3 (0.1-0.6); Monocytes Percent Auto 6.3 % (2.6-8.5); Neutrophils Absolute Auto 10.7 K/mm3 (1.3-6.7); Neutrophils Percent Auto 86.1 % (45.5-73.1); Platelet Count Result 114 k/mm3 (150-375); Red Cell Distribution Width 13.2 % (11.5-14.5); White Blood Count 12.4 K/mm3 (4.5-10.0)
[2022-04-28] MEDS: PANTOPRAZOLE 40 MG TABLET PO (06:45)
[2022-04-28 07:43] LABS: Alanine Aminotransferase 9 U/L (6-50); Albumin Level 3.2 g/dL (3.5-5.1); Alkaline Phosphatase 117 U/L (38-126); Anion Gap 6 mmol/L (8-16); Aspartate Amino Transferase 95 U/L (17-59); Bilirubin,Total 1.1 mg/dL (0.2-1.3); Blood Urea Nitrogen 23 mg/dL (9-20); Calcium 8.3 mg/dL (8.4-10.2); Carbon Dioxide 24 mmol/L (22-30); Chloride 103 mmol/L (98-107); Creatine Kinase 792 U/L (55-170); Estimated CRCL calculation 67 ml/min; Estimated Glomerular Filt Rate > 60; Glucose 98 mg/dL (65-110); Magnesium 1.9 mg/dL (1.6-2.3); Potassium 3.8 mmol/L (3.4-5.0); Sodium 133 mmol/L (137-145)
[2022-04-28] MEDS: ESCITALOPRAM OXALATE 10 MG TABLET 20 MG PO (09:13)
[2022-04-28] MEDS: MAGNESIUM OXIDE 200 MG TABLET PO (09:13)
[2022-04-28] MEDS: lisinopriL 20 MG TABLET 40 MG PO (09:13)
[2022-04-28] MEDS: ENOXAPARIN 40 MG/0.4 ML SYRINGE SUB-Q (09:13)
--- NOTE | 2022-04-28 11:08 | PM.IMPN ---
Progress Note: A&P Assessment and Plan (1) Sepsis: Qualifiers: Sepsis acute organ dysfunction status: with acute organ dysfunction Sepsis type: sepsis due to unspecified organism Severe sepsis acute organ dysfunction type: encephalopathy Severe sepsis shock status: without septic shock Qualified Code(s): A41.9 - Sepsis, unspecified organism; R65.20 - Severe sepsis without septic shock; G93.40 - Encephalopathy, unspecified Code(s): A41.9 - Sepsis, unspecified organism Status: Acute Assessment and Plan: The patient presented to the ER with altered mental status and met sepsis criteria with fever, tachycardia, leukocytosis and confusion. Cultures obtained, he received appropriate fluid resuscitation and was started on Primaxin and Vanco. LP was attempted but was unsuccessful (he has severe spinal stenosis per family). CXR clear. UA not consistent with UTI and UCx negative. BCx (1of2) growing GNB anaerobic bottle. Lactic acid level normal now. WBC down to 12K. Vanco stopped. Concern for GI source so CT A/P ordered showing GB edema and inflammatry chanes. RUQ ordered showing acute cholecystitis. He does not have any significnat pain in the RUQ but this has to be the most likely source. GenSurg consult. Consider cholecystostomy tube but family worried about compliance issues. Follow up on culture results. Continue Primaxin for now. NPO. (2) Altered mental status: Qualifiers: Altered mental status type: delirium Qualified Code(s): R41.0 - Disorientation, unspecified Code(s): R41.82 - Altered mental status, unspecified Status: Acute Assessment and Plan: Patient with altered mental status on admission. [place] related to his fever and sepsis symptoms. Fever has resolved. Bacteremia currently being treated. His confusion was much better yesterday but has worsened today. Related to worsening GB disease despite benign exam? Glucose normal. VS sable. Not felt related to medications that were missed. No hx of alcohol use. Related to Primaxin? Doubt meningitis since we have a more likely diagnosis. Continue to follow. Continue supportive care. Elevate HOB. NPO. Sitter. (3) Syncope: Code(s): R55 - Syncope and collapse Status: Acute Assessment and Plan: Patient has syncopal episode associated with falls. Cervical spine CT showed no fracture dislocation. CT the brain showed atherosclerosis with chronic small vessel ischemic changes but no acute findings. Suspect the syncopal episode of falls were related to above. Hold PT and OT. (4) Rhabdomyolysis: Code(s): M62.82 - Rhabdomyolysis Status: Acute Assessment and Plan: Patient with elevated AST with normal ALT. Given his falls and time on the ground, total CK was checked and was 2300. He was started on IV fluids. Renal function is stable. Total CK trending down. Follow (5) Hypertension: Code(s): I10 - Essential (primary) hypertension Status: Acute Assessment and Plan: Patient's blood pressure was reviewed on 04/28 Blood pressure remains well controlled. Will continue to follow (6) Parkinsons: Code(s): G20 - Parkinson's disease Status: Acute Assessment and Plan: Patient's med list shows that he takes Sinemet as needed and this was verified with patient. Continue the same. Resume PT/OT when able. Plan DVT prophylaxis: Lovenox Code status: Full Diet: NPO Subjective Date/time seen: 04/28/22 11:08 Interval history: 71yo male with PD here for fevers and sepsis. Patient was awake and alert this morning but his condition has worsend as the morning has progresed. He currently awake but obtunded and nonverbal. Family in the room. They do not know of any home medications that we are not giving and he does not drink alcohol. Review of Systems Review of Systems: ROS unobtainable: Yes unobtainable due to mental status Exam Narr
[2022-04-28 11:10] LABS: Glucose Point of Care 90 mg/dl (65-105)
--- NOTE | 2022-04-28 11:30 | PCPTNOTE ---
Attempted to see patient for PT at this time, however patient refused to participate. Patient reported no to all PT activity. Patient seemed agitated at time. RN aware.
--- NOTE | 2022-04-28 12:20 | PC.NURSE ---
Pt family was asking for something to help with pts shaking. Pt was offered carbidopa/levodopa but pt refused. Pt was offered again a few minutes later per family request to come back in 20 minutes and pt refused again. Dr. Stanton was called due to pt change in status. Pt was seen and Dr. Stanton put consult in to general surgery. Blood sugar was checked per Dr. Stanton request (see laboratory). Vital signs checked pt stable. Orders for sitter were put in. Sitter with pt now. Will continue to monitor pt.
--- NOTE | 2022-04-28 13:10 | ECG_ITS ---
Measurements Intervals [place] Rate: 161 P: [place]: 0 QRS: -8 QRSD: 80 T: -34 QT: 234 QTc: 384 Interpretive Statements ATRIAL FIBRILLATION WITH RAPID VENTRICULAR RESPONSE POSSIBLE RIGHT VENTRICULAR CONDUCTION DELAY [RSR (QR) IN V1/V2] MARKED ST DEPRESSION, CONSIDER SUBENDOCARDIAL INJURY [0.2+ mV ST DEPRESSION] COMPARED TO ECG 04/25/2022 20:38:04 ATR[address] FIBRILLATION NOW PRESENT ST DEPRESSION IS NOW PRESENT Electronically Signed On 04-28-2022 16:41:42 CDT by Amy Hdez M.D.
--- NOTE | 2022-04-28 14:00 | PC.NURSE ---
At approximately 1309 Pt began reading tachycardic on the clinical research monitor. I went in to pt room and pt was diaphoretic. I got pt vitals and alerted the charge nurse to the situation. Dr. Stanton was notified by charge nurse and he ordered stat EKG. Pt temperature and blood sugar were obtained (see vitals and laboratory) and Dr Stanton was called to request IV tylenol for temperature. Dr Stanton gave the order and stated he would be right over. EKG was obtained (see results) and Dr Stanton ordered transfer to IMU. Pt belongings were packed up and pt was moved to IMU. Pt daughter, Niesha, was notified of status change and transfer at 1356. Daughter stated she would notify rest of family.
[2022-04-28] MEDS: METOPROLOL TARTRATE INJ 5 MG/5 ML VIAL IV PUSH ×2 (14:06→23:04)
[2022-04-28 14:14] LABS: Basophils Percent Auto 0.2 % (0.2-1.2); Hematocrit 32.7 % (42.0-52.0); Hemoglobin 11.3 g/dL (14.0-18.0); Immature Granulocyte Absolute 0.07 K/mm3 (0.00-0.031); Immature Granulocyte Percent A 0.6 % (0-0.5); Immature Platelet Fraction Pct 4.9 % (0.9-11.2); Lymphocytes Percent Auto 1.7 % (18.3-44.2); Mean Corpuscular HGB Conc 34.6 g/dl (32-36); Mean Corpuscular Hemoglobin 31.7 pg (26-34); Mean Corpuscular Volume 91.9 fl (80-100); Mean Platelet Volume 10.6 fl (7.4-10.4); Monocytes Absolute Auto 0.5 K/mm3 (0.1-0.6); Monocytes Percent Auto 4.5 % (2.6-8.5); Neutrophils Absolute Auto 11.1 K/mm3 (1.3-6.7); Platelet Count Result 119 k/mm3 (150-375); Red Blood Count 3.56 M/mm3 (4.6-6.20); Red Cell Distribution Width 12.9 % (11.5-14.5); White Blood Count 11.9 K/mm3 (4.5-10.0)
[2022-04-28 14:21] LABS: INR 1.2; Prothrombin Time 14.4 Seconds (11.1-14.7)
[2022-04-28 14:22] LABS: Partial Thromboplastin Time 32.9 SECONDS (22.3-36.8)
--- NOTE | 2022-04-28 14:24 | PM.CNCAR ---
Assessment and Plan Assessment and plan (1) Atrial fibrillation with RVR: Code(s): I48.91 - Unspecified atrial fibrillation Status: Acute Assessment and Plan: New onset AFib RVR in the setting of bacteremia and sepsis. Has been given an amiodarone bolus and now is on a 1 milligram/minute drip. Also given 1 dose of IV metoprolol. Will continue IV metoprolol 5 mg q.1 hour p.r.n. for heart rate greater than 120 Will check on patient soon; may need another amiodarone bolus (2) Abnormal EKG: Code(s): R94.31 - Abnormal electrocardiogram [ECG] [EKG] Status: Acute Assessment and Plan: Patient has diffuse ST segment depression, likely demand ischemia from his AFib RVR, fevers and sepsis. Reducing fever with IV Tylenol Reducing HR w/ amio + metoprolol Hope not to need emergent cardioversion; not likely to maintain NSR with this significant physiological stress Troponins pending Echo (3) Sepsis: Qualifiers: Sepsis acute organ dysfunction status: with acute organ dysfunction Sepsis type: sepsis due to unspecified organism Severe sepsis acute organ dysfunction type: encephalopathy Severe sepsis shock status: without septic shock Qualified Code(s): A41.9 - Sepsis, unspecified organism; R65.20 - Severe sepsis without septic shock; G93.40 - Encephalopathy, unspecified Code(s): A41.9 - Sepsis, unspecified organism Status: Acute Assessment and Plan: Patient appears to have acute cholecystitis with Gram-negative bacteremia and ongoing fevers. Has been given IV fluids and antibiotics. So far pt's BP is stable. (4) Acute cholecystitis: Code(s): K81.0 - Acute cholecystitis Status: Acute Assessment and Plan: Dr. Ohara has been consulted History of Present Illness History of Present Illness Consult date/time: 04/28/22 14:24 Reason For Visit: Sepsis Narrative: Bernard Cristobal is a 71-year-old male whom I was asked to see at the request of Dr. Stanton for my advice and opinion regarding his AFib RVR, in consultation. Patient has a history of Parkinson's disease and HTN. Denies any history of heart problems. The patient was admitted yesterday through the emergency room with weakness, falls and altered mental status. He had a fever on admission and and lactic acidosis, and is thought to have acute cholecystitis. He has gram negative bacteremia. This afternoon he developed a recurrent fever and AFib RVR, heart rates in the 140s to 160s. He has some ST segment depression is well. He has been delirious but does admit to ?a little tightness? in his chest. Review of Systems Review of Systems: ROS obtained fr pt, chart and Dr. Lopez. ROS unobtainable: Yes unobtainable due to mental status (Pt is delerious and can not give a good hx.) Constitutional: Constitutional: Denies chills (fevers) Eyes: Eyes: Reports no additional eye complaints ENT: Denies epistaxis Cardiovascular: Cardiovascular: Reports chest pain (a little tightness) Respiratory: Respiratory: Denies chest congestion, Denies cough and Denies dyspnea Gastrointestinal: Gastrointestinal: Denies abdominal pain, Denies hematochezia and Denies heartburn Genitourinary: Genitourinary: Denies hematuria Musculoskeletal: Musculoskeletal: Reports no additional musculoskeletal complaints Comments: Uses a walker, lift chair Integumentary/Breasts: Skin/Breast: Reports system reviewed and no additional complaints, except as docu Neurologic: Reports confusion Psychiatric: Psychiatric: Reports confusion [facility] [place] Past Medical History Medical History Anxiety Hypertension Neuropathy Parkinsons Surgical History Surgical History History of lumbar surgery Family History Family History
[2022-04-28 14:25] LABS: Alanine Aminotransferase 30 U/L (6-50); Albumin Level 3.2 g/dL (3.5-5.1); Alkaline Phosphatase 236 U/L (38-126); Amylase 79 U/L (30-110); Anion Gap 11 mmol/L (8-16); Aspartate Amino Transferase 144 U/L (17-59); Bilirubin Direct 1.1 mg/dL (0-0.3); Bilirubin,Total 3.4 mg/dL (0.2-1.3); Blood Urea Nitrogen 20 mg/dL (9-20); Calcium 7.9 mg/dL (8.4-10.2); Carbon Dioxide 18 mmol/L (22-30); Chloride 105 mmol/L (98-107); Estimated CRCL calculation 67 ml/min; Estimated Glomerular Filt Rate > 60; Glucose 94 mg/dL (65-110); Lipase 520 U/L (23-300); Potassium 3.6 mmol/L (3.4-5.0); Sodium 134 mmol/L (137-145)
[2022-04-28 14:26] LABS: Lactic Acid Reflex 1.6 mmol/L (0.7-2.0)
[2022-04-28] MEDS: AMIODARONE 360 MG/D5W 200 ML 360 MG/200 ML BAG 33.33 MG IV CONT ×2 (14:29→20:26)
[2022-04-28] MEDS: AMIODARONE 150 MG/D5W 100 ML 150 MG/100 ML BAG 600 MG IV CONT ×3 (14:29→17:37)
[2022-04-28 14:44] LABS: Troponin I 0.069 ng/mL (0.000-0.034)
[2022-04-28 14:47] LABS: Burr Cells 2+ (NORMAL); Platelet Estimate Decreased (Adequate)
--- NOTE | 2022-04-28 16:25 | PC.NURSE ---
1600-Pt. received from Interventional Radiology after placement of cholecystostomy tube. Bedside report received from Cindy Foster RN. Pt.'s vital signs stable upon transfer.
--- NOTE | 2022-04-28 16:51 | PM.CNGS ---
Assessment and Plan Assessment and plan (1) Cholelithiasis and acute cholecystitis with obstruction: Code(s): K80.01 - Calculus of gallbladder with acute cholecystitis with obstruction Status: Acute Assessment and Plan: Agree with cholecystostomy tube placement. Patient showing some signs of improvement already even though this was only an hour ago this was placed. Hopefully his heart rate will improve soon. Will follow along with you. Possibly patient can have laparoscopic cholecystectomy once his sepsis is resolved and medically more stable. (2) Abnormal LFTs: Code(s): R79.89 - Other specified abnormal findings of blood chemistry Status: Acute Assessment and Plan: Probably this is due to the acute cholecystitis although common bile duct stones and cholangitis are possible. There was no biliary ductal dilatation on the imaging studies. Will follow these, hopefully they will improve. If not may need to consider common bile duct stones. (3) Atrial fibrillation with RVR: Code(s): I48.91 - Unspecified atrial fibrillation Status: Acute Assessment and Plan: Being treated by hospitalist and Cardiology. (4) Altered mental status: Qualifiers: Altered mental status type: delirium Qualified Code(s): R41.0 - Disorientation, unspecified Code(s): R41.82 - Altered mental status, unspecified Status: Acute Assessment and Plan: Most likely due to sepsis from cholecystitis. Patient does have bacteremia as well. (5) Sepsis: Qualifiers: Sepsis acute organ dysfunction status: with acute organ dysfunction Sepsis type: sepsis due to unspecified organism Severe sepsis acute organ dysfunction type: encephalopathy Severe sepsis shock status: without septic shock Qualified Code(s): A41.9 - Sepsis, unspecified organism; R65.20 - Severe sepsis without septic shock; G93.40 - Encephalopathy, unspecified Code(s): A41.9 - Sepsis, unspecified organism Status: Acute Assessment and Plan: With gram-negative anaerobic rods growing in blood culture. Most likely due to acute cholecystitis. Continue antibiotic therapy. History of Present Illness Consult details Consult date: 04/28/22 Reason for consult: other (Cholecystitis with sepsis) Requesting physician: Lui Stanton MD Narrative: Patient is a 71-year-old man who was admitted 3 days ago with altered mental status, falls, and fever. Blood cultures on admission are growing and anaerobic Gram-negative stas. Although he initially improved after hydration, he had more trouble today with confusion, recurrent fever, and rapid atrial fibrillation. His liver enzymes became abnormal with an elevated bilirubin of 3.4. He had a CT scan that suggested inflammation of the gallbladder. An ultrasound showed acute cholecystitis with gallstones. I spoke with Dr. Stanton earlier this afternoon about the patient and his worsening condition. I was in surgery at the time but after discussion, we felt it best to proceed with placement of a percutaneous cholecystostomy tube. This has since been completed. Patient was seen in the ICU. His temperature has already improved although he remains in atrial fibrillation with rapid ventricular response. He has not been hypotensive. He has no particular complaints at present. He denies any abdominal pain. He can not really recall why he came to the hospital. Review of Systems Review of Systems: ROS unobtainable: Yes unobtainable due to medical condition (Sepsis with altered mental status) PMFSH Past Medical History Medical History Anxiety Hypertension Neuropathy Parkinsons Surgical History Surgical History History of lumbar surgery Family History Family History Father Throat can
[2022-04-28 17:13] LABS: Troponin I 0.381 ng/mL (0.000-0.034)
[2022-04-28] MEDS: SODIUM CHLORIDE 0.9% IV 1,000 ML 125 ML IV CONT (17:36)
[2022-04-28] MEDS: ASPIRIN 81 MG CHEWABLE TABLET PO (17:37)
[2022-04-28 19:52] LABS: Glucose Point of Care 99 mg/dl (65-105)
[2022-04-28] MEDS: PANTOPRAZOLE SODIUM IV 40 MG VIAL IV PUSH (20:00)
[2022-04-29] VITALS (22 sets, daily range): BP systolic 112–137; BP diastolic 59–97; PULSE 83–131; RESP 14–22; TEMP 36.2–38.2; O2SAT 94–100
--- NOTE | 2022-04-29 | ECHO_ITS ---
Patient Info Name: Bernard Cristobal Age: 71 years : 1950 Gender: Male Ht: 72 in Wt: 213 lbs BSA: 2.23 m2 HR: 117 bpm BP: 116 / 86 mmHg Heart Rhythm: Atrial Fibrillation Exam Date: 04/29/2022 1:16 PM Exam Location: [facility] Patient Status: Inpatient Admit Date: 04/26/2022 Staff Ordering Physician: Lui Stanton MD Photographic Colorist: Niraj Victor RDCS Attending Provider: Sharon Shane DO Exam Type: CA echo doppler color flow Study Info Indications - atrial fibrillation Complete two-dimensional, color flow and Doppler transthoracic echocardiogram is performed. Summary 1. Complete two-dimensional, color flow and Doppler transthoracic echocardiogram is performed. 2. Normal left ventricular size with moderate concentric hypertrophy. Severe global hypokinesis present. Ejection fraction calculated 27%. Diastolic function indeterminate. 3. Left atrial chamber dimension is moderately enlarged. 4. No significant valve disease. 5. Atrial fibrillation with a rapid ventricular response. 6. Technically difficult study. Left Ventricle Left ventricular chamber dimension is normal. Left ventricular systolic function is severely reduced, estimated at 25-30%. There is moderately increased left ventricular wall thickness. Left ventricular septal wall motion is normal. The left ventricular diastolic function is indeterminate. Right Ventricle Right ventricular chamber dimension is normal. Right ventricular systolic function is normal. Left Atria Left atrial chamber dimension is moderately enlarged. Right Atria Right atrial chamber dimension is normal. Aortic Valve The aortic valve is trileaflet. There is no aortic valve sclerosis. There is no aortic valve stenosis. There is no aortic valve regurgitation. Pulmonic Valve The pulmonic valve is normal. There is no pulmonic valve stenosis. There is trace pulmonic regurgitation. Mitral Valve The mitral valve has normal leaflets. There is no mitral valve stenosis. There is trace mitral valve regurgitation. Tricuspid Valve The tricuspid valve leaflets are normal. There is no significant tricuspid valve stenosis. There is trace tricuspid valve regurgitation. No pulmonary hypertension, estimated pulmonary arterial systolic pressure is Empty. Pericardium/Pleural The pericardium appears normal. There is no pericardial effusion. Inferior Vena Cava Normal inferior vena cava with >50% collapse upon inspiration consistent with Empty right atrial pressure, Empty. Aorta The aortic root size at the sinus of Valsalva is normal. The prox ascending aorta size is normal. Left Ventricular Outflow Tract Name Value Normal LVOT 2D LVOT Diameter 2.2 cm LVOT Doppler LVOT Peak Gradient 2 mmHg LVOT Mean Gradient 2 mmHg LVOT VTI 11 cm LVOT VTI/AV VTI Ratio 0.8 LVOT Stroke Volume 41 ml LVOT CO 5.0 l/min LVOT CI
[2022-04-29] MEDS: SODIUM CHLORIDE 0.9% IV 1,000 ML 125 ML IV CONT ×3 (01:56→18:19)
[2022-04-29] MEDS: AMIODARONE 360 MG/D5W 200 ML 360 MG/200 ML BAG 33.33 MG IV CONT ×4 (01:57→20:49)
[2022-04-29 04:43] LABS: Basophils Percent Auto 0.3 % (0.2-1.2); Eosinophils Percent Auto 0.1 % (0-4.4); Hematocrit 35.6 % (42.0-52.0); Hemoglobin 11.7 g/dL (14.0-18.0); Immature Granulocyte Absolute 0.03 K/mm3 (0.00-0.031); Immature Granulocyte Percent A 0.4 % (0-0.5); Immature Platelet Fraction Pct 7.9 % (0.9-11.2); Lymphocytes Absolute Auto 0.69 K/mm3 (0.9-3.2); Lymphocytes Percent Auto 8.6 % (18.3-44.2); Mean Corpuscular HGB Conc 32.9 g/dl (32-36); Mean Corpuscular Hemoglobin 31.5 pg (26-34); Mean Platelet Volume 11.5 fl (7.4-10.4); Monocytes Absolute Auto 0.6 K/mm3 (0.1-0.6); Monocytes Percent Auto 6.9 % (2.6-8.5); Neutrophils Absolute Auto 6.7 K/mm3 (1.3-6.7); Neutrophils Percent Auto 83.7 % (45.5-73.1); Platelet Count Result 97 k/mm3 (150-375); Red Blood Count 3.71 M/mm3 (4.6-6.20); Red Cell Distribution Width 13.4 % (11.5-14.5)
[2022-04-29 04:55] LABS: Anion Gap 8 mmol/L (8-16); Blood Urea Nitrogen 22 mg/dL (9-20); Calcium 7.7 mg/dL (8.4-10.2); Carbon Dioxide 22 mmol/L (22-30); Chloride 105 mmol/L (98-107); Creatine Kinase 522 U/L (55-170); Estimated CRCL calculation 74 ml/min; Estimated Glomerular Filt Rate > 60; Glucose 99 mg/dL (65-110); Magnesium 2.2 mg/dL (1.6-2.3); Sodium 135 mmol/L (137-145)
[2022-04-29 05:04] LABS: Burr Cells 2+ (NORMAL); Platelet Estimate Decreased (Adequate)
[2022-04-29 06:28] LABS: CRP 15.6 mg/dL (<1.0)
[2022-04-29] MEDS: ASPIRIN 81 MG CHEWABLE TABLET PO (08:26)
[2022-04-29] MEDS: PANTOPRAZOLE SODIUM IV 40 MG VIAL IV PUSH ×2 (08:57→20:48)
--- NOTE | 2022-04-29 09:22 | PCSTNOTE ---
Patient given bedside trials of water by straw, applesauce by spoon, fruit cocktail by spoon, and piece of saltine cracker by fingers. Did not feed self. No signs or symptoms of aspiration. Patient cannot position himself without assistance. Needs to be upright when eating or drinking. Recommend regular liquids (ok to drink from straw) and minced moist diet (level 5). Thank you for the referral of this patient.
[2022-04-29] MEDS: cefTRIAXone 2 GM in SODIUM CHLORIDE 0.9% IV 100 ML 200 ML IVPB (11:00)
[2022-04-29] MEDS: METOPROLOL TARTRATE 12.5 MG TABLET PO ×2 (11:00→20:48)
--- NOTE | 2022-04-29 11:17 | PM.PNCARD ---
Progress Note: A&P Assessment and Plan (1) Atrial fibrillation with RVR: Code(s): I48.91 - Unspecified atrial fibrillation Status: Acute Plan this is a 71-year-old man with the acute onset of atrial fibrillation in the setting of cholecystitis. The patient is clinically stable despite having persistent RVR. He has been in atrial fibrillation now for 24 hours so I am going to start him on systemic anticoagulation with Lovenox. He is a poor candidate for anticoagulation outside of the hospital because of Parkinson's and falling. The hope and expectation is we will be restoring sinus rhythm while he is in the hospital since this is new onset AFib. Jayy Badillo MD [facility] Subjective Date/time seen: date of service:04/29/22 11:17 Interval history: This is a 71-year-old man with: acute onset of atrial fibrillation with RVR in the setting of acute cholecystitis with picture of sepsis. Patient has been placed on intravenous amiodarone and is receiving intravenous metoprolol for rate control. Feels much better today but still in atrial fib with heart rate between 100-120. Exam Const: General: comfortable and no acute distress Other: Pleasant tall gentleman appearing his stated age no distress HENMT: Mouth: Yes moist mucous membranes Eyes: Sclera: sclerae normal Neck: Neck: supple and no JVD Resp: Effort & Inspection: normal respiratory effort Auscultation: clear to auscultation bilaterally Cardio: Rate: tachycardic Rhythm: abnormal rhythm irregularly irregular GI: GI Palp: Yes Soft to palpation Skin: General skin exam: normal color Neuro: Other: normal mentation Objective Data Vital Signs Vital Signs: Vital Signs - 24 hr 04/28/22 13:36 04/28/22 13:09 04/28/22 12:05 Temperature 39.2 C H 39.2 C H Pulse Rate 164 H 103 H Respiratory Rate 31 H Blood Pressure 116/58 L Pulse Oximetry 94 Oxygen Delivery Oxygen Flow Rate 04/28/22 14:57 04/28/22 15:10 04/28/22 16:00 Temperature 36.8 C Pulse Rate 160 H Respiratory Rate Blood Pressure 94/55 L Pulse Oximetry 97 Oxygen Delivery Nasal Cannula Oxygen Flow Rate 2 04/28/22 16:00 04/28/22 16:15 04/28/22 17:00 Temperature 37.9 C H Pulse Rate 121 H 134 H 133 H Respiratory Rate 22 H 20 Blood Pressure 100/73 106/54 L Pulse Oximetry 97 98 Oxygen Delivery Oxygen Flow Rate 04/28/22 18:00 04/28/22 18:00 04/28/22 20:26 Temperature 37.8 C H Pulse Rate 119 H 119 H 128 H Respiratory Rate 20 Blood Pressure 111/85 126/93 H Pulse Oximetry 98 Oxygen Delivery Oxygen Flow Rate 04/28/22 20:00 04/28/22 20:00 04/28/22 22:00 Temperature Pulse Rate 130 H 113 H Respiratory Rate Blood Pressure Pulse Oximetry 99 Oxygen Delivery Nasal Cannula Oxygen Flow Rate 2 04/28/22 20:00 04/28/22 22:00 04/28/22 23:04 Temperature 37.7 C H 37.6 C H Pulse Rate 115 H 113 H 123 H Respiratory Rate 18 21 H Blood Pressure 111/88 122/92 H Pulse Oximetry 99 99 Oxygen Delivery Oxygen Flow Rate 04/29/22 00:00 04/29/22 00:00 04/29/22 00:00 Temperature Pulse Rate 117 H 106 H Respiratory Rate 19 Blood Pressure 122/81 Pulse Oximetry 97 94 Oxygen Delivery Nasal Cannula Oxygen Flow Rate 2 04/29/22 02:00 04/29/22 02:00 04/29/22 04:00 Temperature 37.2 C Pulse Rate 83 108 H 116 H Respiratory Rate 17 Blood Pressure 135/91 H Pulse Oximetry 100 Oxygen Delivery Oxygen Flow Rate 04/29/22 04:00 04/29/22 04:00 04/29/22 05:55 Temperature 37.1 C Pulse Rate 116 H 116 H Respiratory Rate 17 Blood Pressure 126/97 H Pulse Oximetry 99 99 Oxygen Delivery Nasal Cannula Oxygen Flow Rate 2 04/29/22 06:00 04/29/22 07:54 04/29/22 08:27 Temperature 37.4 C 37.4 C Pulse Rate 120 H 84 116 H Respiratory Rate 16 14 Blood Pressure 130/91 H 130/79 133/91 H Pulse Oximetry 99 97 Oxygen Delivery Oxygen Flow Rate 04/29
[2022-04-29] MEDS: ENOXAPARIN 100 MG/ML SYRINGE 90 MG SUB-Q ×2 (11:52→20:49)
[2022-04-29] MEDS: ACETAMINOPHEN 325 MG TABLET 650 MG PO (11:55)
--- NOTE | 2022-04-29 13:00 | WPDCNINT ---
Assessment and Plan Assessment and plan (1) Cholelithiasis and acute cholecystitis with obstruction: Code(s): K80.01 - Calculus of gallbladder with acute cholecystitis with obstruction Status: Acute Assessment and Plan: Now status post cholecystostomy tube General surgery is following and he will need laparoscopic cholecystectomy eventually Antibiotics changed to Rocephin and Flagyl per blood cultures (2) Rhabdomyolysis: Code(s): M62.82 - Rhabdomyolysis Status: Acute Assessment and Plan: Patient presented with mild rhabdomyolysis and CK level is improving Continue monitoring CK level Continue IV fluids (3) Atrial fibrillation with RVR: Code(s): I48.91 - Unspecified atrial fibrillation Status: Acute Assessment and Plan: Patient is currently on amiodarone infusion. P.o. beta-nelida added since his blood pressures in After discussion with Cardiology, Patient will be started on systemic anticoagulation with Lovenox. Overall patient is a poor candidate for anticoagulation on long-term basis due to his history of falls and issues with balance. (4) Sepsis: Qualifiers: Sepsis acute organ dysfunction status: with acute organ dysfunction Sepsis type: sepsis due to unspecified organism Severe sepsis acute organ dysfunction type: encephalopathy Severe sepsis shock status: without septic shock Qualified Code(s): A41.9 - Sepsis, unspecified organism; R65.20 - Severe sepsis without septic shock; G93.40 - Encephalopathy, unspecified Code(s): A41.9 - Sepsis, unspecified organism Status: Acute Assessment and Plan: Secondary to acute cholecystitis Now status post cholecystostomy drain placement Blood cultures positive for Klebsiella oxytocia Antibiotic changed to Rocephin and Flagyl WBC has improved and he is afebrile (5) Parkinsons: Code(s): G20 - Parkinson's disease Status: Acute Assessment and Plan: Continue Sinemet (6) Elevated troponin: Code(s): R77.8 - Other specified abnormalities of plasma proteins Status: Acute Assessment and Plan: Likely secondary to sepsis and AFib with RVR Patient denies any chest pain Cardiology following Patient on Lovenox. And aspirin P.o. beta-nelida added Echo pending Additional Plan DVT prophylaxis -on therapeutic dose Lovenox Stress ulcer prophylaxis-PPI Nutrition -liquid diet Code Status - Full Code Incentive spirometer Total Critical Care Time - 33 minutes Due to a high probability of clinically significant, life threatening deterioration, the patient required my highest level of preparedness to intervene emergently and I personally spent this critical care time directly and personally managing the patient. This critical care time included obtaining a history; examining the patient; pulse oximetry; ordering and review of studies; arranging urgent treatment with development of a management plan; evaluation of patient's response to treatment; frequent reassessment; and discussions with other providers. It was exclusive of separately billable procedures and treating other patients and teaching time. Please see Assessment and Plan section and the rest of the note for further information on patient assessment and treatment Technical Services Manager Consult Note Consult date: 04/29/22 Reason for consult: AFib with RVR, sepsis, cholecystitis HPI: Bernard Cristobal is a 71 year old male with past medical history of Parkinson's disease, hypertension, and anxiety who was admitted ER after multiple falls and acute onset of altered mental status on 04/26. Patient was febrile on presentation and initial [place] meningitis was suspected. LP was attempted but was unsuccessful. Later on further evaluation and testing patient grew out Gram-negative rods in his blood and his abdominal imaging was suspected of cholecystitis. Patient went into AFib with RVR which is a new onset for him and Cardiology was con
--- NOTE | 2022-04-29 14:09 | PM.IMPN ---
Progress Note: A&P Assessment and Plan (1) Sepsis: Qualifiers: Sepsis acute organ dysfunction status: with acute organ dysfunction Sepsis type: sepsis due to unspecified organism Severe sepsis acute organ dysfunction type: encephalopathy Severe sepsis shock status: without septic shock Qualified Code(s): A41.9 - Sepsis, unspecified organism; R65.20 - Severe sepsis without septic shock; G93.40 - Encephalopathy, unspecified Code(s): A41.9 - Sepsis, unspecified organism Status: Acute Assessment and Plan: The patient presented to the ER with altered mental status and met sepsis criteria with fever, tachycardia, leukocytosis and confusion. Cultures obtained, he received appropriate fluid resuscitation and was started on Primaxin and Vanco. LP was attempted but was unsuccessful (he has severe spinal stenosis per family). CXR clear. UA not consistent with UTI and UCx negative.Lactic acid level normal now. WBC down to 12K. Vanco stopped. Concern for GI source so CT A/P ordered showing GB edema and inflammatry chanes. RUQ ordered showing acute cholecystitis. He does not have any significnat pain in the RUQ but this has to be the most likely source. GenSurg consult. Given acute decline 04/28, patient was urgently taken for percutaneous cholecystostomy tube placement. Blood cultures growing Klebsiella, given high propensity of ESBL will maintain on ertapenem until sensitivities results. (2) Atrial fibrillation with RVR: Code(s): I48.91 - Unspecified atrial fibrillation Status: Acute Assessment and Plan: Patient noted to go into AFib with RVR 04/28, now on amiodarone drip. Cardiology following. Likely secondary to acute sepsis. Will defer to Cardiology regarding echocardiogram. Patient now on therapeutic Lovenox (3) Altered mental status: Qualifiers: Altered mental status type: delirium Qualified Code(s): R41.0 - Disorientation, unspecified Code(s): R41.82 - Altered mental status, unspecified Status: Acute Assessment and Plan: Patient with altered mental status on admission. [place] related to his fever and sepsis symptoms. Fever has resolved. Bacteremia currently being treated. His confusion was much better yesterday but has worsened today. Related to worsening GB disease despite benign exam? Glucose normal. VS sable. Not felt related to medications that were missed. No hx of alcohol use. Related to Primaxin? Doubt meningitis since we have a more likely diagnosis. Continue to follow. Continue supportive care. Elevate HOB. NPO. Sitter. (4) Syncope: Code(s): R55 - Syncope and collapse Status: Acute Assessment and Plan: Patient has syncopal episode associated with falls. Cervical spine CT showed no fracture dislocation. CT the brain showed atherosclerosis with chronic small vessel ischemic changes but no acute findings. Suspect the syncopal episode of falls were related to above. Hold PT and OT. (5) Rhabdomyolysis: Code(s): M62.82 - Rhabdomyolysis Status: Acute Assessment and Plan: Patient with elevated AST with normal ALT. Given his falls and time on the ground, total CK was checked and was 2300. He was started on IV fluids. Renal function is stable. Total CK trending down. Follow (6) Hypertension: Code(s): I10 - Essential (primary) hypertension Status: Acute Assessment and Plan: Patient's blood pressure was reviewed on 04/28 Blood pressure remains well controlled. Will continue to follow (7) Parkinsons: Code(s): G20 - Parkinson's disease Status: Acute Assessment and Plan: Patient's med list shows that he takes Sinemet as needed and this was verified with patient. Continue the same. Resume PT/OT when able. Plan DVT prophylaxis: Therapeutic Lovenox Code status: Full Diet: Full liquid Subjective Date/time seen: 04/29/22 14:09 Greater than 30 minutes s
--- NOTE | 2022-04-29 15:03 | PM.PNGS ---
Progress Note: A&P Assessment and Plan (1) Cholelithiasis and acute cholecystitis with obstruction: Code(s): K80.01 - Calculus of gallbladder with acute cholecystitis with obstruction Status: Acute Assessment and Plan: S/p cholecystostomy tube placement 04/28/2022. Continue to monitor output. Bile cultures pending. Fevers improving. Continue IV antibiotics. Could consider a laparoscopic cholecystectomy once more medically stable and sepsis has resolved. (2) Abnormal LFTs: Code(s): R79.89 - Other specified abnormal findings of blood chemistry Status: Acute Assessment and Plan: Could be related to acute cholecystitis, but common bile duct stones and cholangitis are also possible. LFTs were not on labs this morning, therefore will add LFTs and lipase today. We will monitor trend labs and may need to consider common bile duct stones if not improving. (3) Atrial fibrillation with RVR: Code(s): I48.91 - Unspecified atrial fibrillation Status: Acute Assessment and Plan: On an amiodarone drip. Cardiology following. (4) Altered mental status: Qualifiers: Altered mental status type: delirium Qualified Code(s): R41.0 - Disorientation, unspecified Code(s): R41.82 - Altered mental status, unspecified Status: Acute Assessment and Plan: Seemed to be improving. Most likely related to the infection. (5) Sepsis: Qualifiers: Sepsis acute organ dysfunction status: with acute organ dysfunction Sepsis type: sepsis due to unspecified organism Severe sepsis acute organ dysfunction type: encephalopathy Severe sepsis shock status: without septic shock Qualified Code(s): A41.9 - Sepsis, unspecified organism; R65.20 - Severe sepsis without septic shock; G93.40 - Encephalopathy, unspecified Code(s): A41.9 - Sepsis, unspecified organism Status: Acute Assessment and Plan: Blood cx on 04/25 growing Klebsiella oxytoca. Urine cx negative. Bile cx pending. Blood cx being repeated today. Continue IV antibiotics. Likely related to acute cholecystitis vs ascending cholangitis. Plan I have discussed the patient's case and plan of care with Dr. Ohara. Subjective Subjective Date/Time Seen: 04/29/22 13:03 Patient reports: no new complaints, feels better, pain is less, tolerating liquids well, flatus, no bowel movement and fever (improving, Tmax 100.7 today) Interval history: This is a 71 yo M who presented to the ER for altered mental status, fever, and falls. He was admitted for sepsis, rhabdomyolysis, and encephalopathy. Blood cultures were found to be positive and he subsequently had a CT scan of the abdomen and pelvis, which suggested possible acute cholecystitis. Right upper quadrant ultrasound then ordered and showed acute cholecystitis. He then had placement of a percutaneous cholecystostomy tube in Radiology yesterday. He was also found to be in AFib RVR and cardiology is following. He is currently in ICU on an amiodarone drip. Chart reviewed. Patient seen and examined. He reports feeling much better today. The back pain he was previously experiencing has improved. He denies any abdominal pain at this time. He is tolerating clear liquids. No nausea or vomiting. Review of Systems Review of Systems: All systems reviewed & are unremarkable except as noted in HPI and below Exam Const: General: comfortable, no acute distress and awake Orientation/consciousness: patient oriented x3 GI: Inspection: non-distended and other (Cholecystostomy tube in the right upper quadrant draining bile) GI Palp: Yes Soft to palpation, Yes Tenderness to palpation present (GI) (mild TTP in RUQ), No Guarding due to palpation present (GI) and No Rebound tenderness present Auscultation: Hypoactive bowel sounds present Extrem: General: no calf tenderness and no edema Psych: Affect: normal affect Insight: Good insight present (Psych) O
[2022-04-29 15:37] LABS: Alanine Aminotransferase 29 U/L (6-50); Albumin Level 2.8 g/dL (3.5-5.1); Alkaline Phosphatase 170 U/L (38-126); Aspartate Amino Transferase 72 U/L (17-59); Bilirubin Direct 0.7 mg/dL (0-0.3); Bilirubin,Total 2.6 mg/dL (0.2-1.3); Lipase 207 U/L (23-300)
[2022-04-29] MEDS: ERTAPENEM 1 GM/NS 50 ML 1 GM/50 ML BAG IVPB (16:11)
--- NOTE | 2022-04-29 19:16 | PC.NURSE ---
1800- received pt from ICU to room 212- pt alert oriented to self/place- monitor atrial fib 107-120's IV amiodarone infusing at 1 mg/as ordered with NS 125cc/hr- Cholecystotomy tube intact to gravity drainage. [place] intact.pt oriented to room and routines of floor- bed alarm on- call light in reach
[2022-04-30] VITALS (21 sets, daily range): BP systolic 128–151; BP diastolic 81–98; PULSE 110–136; RESP 18–22; TEMP 36.5–37.2; O2SAT 96–100
[2022-04-30] MEDS: AMIODARONE 360 MG/D5W 200 ML 360 MG/200 ML BAG 33.33 MG IV CONT ×4 (02:12→20:25)
[2022-04-30] MEDS: SODIUM CHLORIDE 0.9% IV 1,000 ML 125 ML IV CONT ×2 (02:12→09:49)
[2022-04-30 06:20] LABS: Hematocrit 32.3 % (42.0-52.0); Hemoglobin 10.6 g/dL (14.0-18.0); Immature Platelet Fraction Pct 9.6 % (0.9-11.2); Mean Corpuscular HGB Conc 32.8 g/dl (32-36); Mean Corpuscular Volume 94.4 fl (80-100); Mean Platelet Volume 11.5 fl (7.4-10.4); Platelet Count Result 124 k/mm3 (150-375); Red Blood Count 3.42 M/mm3 (4.6-6.20); Red Cell Distribution Width 13.7 % (11.5-14.5); White Blood Count 7.4 K/mm3 (4.5-10.0)
[2022-04-30 06:46] LABS: Alanine Aminotransferase 32 U/L (6-50); Albumin Level 2.8 g/dL (3.5-5.1); Alkaline Phosphatase 174 U/L (38-126); Anion Gap 7 mmol/L (8-16); Aspartate Amino Transferase 64 U/L (17-59); Bilirubin,Total 2.1 mg/dL (0.2-1.3); Blood Urea Nitrogen 20 mg/dL (9-20); Calcium 7.8 mg/dL (8.4-10.2); Carbon Dioxide 22 mmol/L (22-30); Chloride 103 mmol/L (98-107); Creatine Kinase 177 U/L (55-170); Estimated CRCL calculation 83 ml/min; Estimated Glomerular Filt Rate > 60; Glucose 101 mg/dL (65-110); Lipase 147 U/L (23-300); Magnesium 2.1 mg/dL (1.6-2.3); Potassium 3.6 mmol/L (3.4-5.0); Sodium 132 mmol/L (137-145)
[2022-04-30] MEDS: PANTOPRAZOLE SODIUM IV 40 MG VIAL IV PUSH ×2 (08:33→20:24)
[2022-04-30] MEDS: ASPIRIN 81 MG CHEWABLE TABLET PO (08:34)
[2022-04-30] MEDS: METOPROLOL TARTRATE 12.5 MG TABLET PO ×2 (08:35→20:24)
[2022-04-30] MEDS: ENOXAPARIN 100 MG/ML SYRINGE 90 MG SUB-Q ×2 (08:35→20:24)
--- NOTE | 2022-04-30 09:44 | P.PNIM_ITS ---
Progress Note: A&P Assessment and Plan (1) Cholelithiasis and acute cholecystitis with obstruction: Code(s): K80.01 - Calculus of gallbladder with acute cholecystitis with obstruction Status: Acute (2) Abnormal LFTs: Code(s): R79.89 - Other specified abnormal findings of blood chemistry Status: Acute (3) Atrial fibrillation with RVR: Code(s): I48.91 - Unspecified atrial fibrillation Status: Acute (4) Altered mental status: Qualifiers: Altered mental status type: delirium Qualified Code(s): R41.0 - Disorientation, unspecified Code(s): R41.82 - Altered mental status, unspecified Status: Acute (5) Sepsis: Qualifiers: Sepsis acute organ dysfunction status: with acute organ dysfunction Sepsis type: sepsis due to unspecified organism Severe sepsis acute organ dysfu nction type: encephalopathy Severe sepsis shock status: without septic shock Qualified Code(s): A41.9 - Sepsis, unspecified organism; R65.20 - Severe sepsis without septic shock; G93.40 - Encephalopathy, unspecified Code(s): A41.9 - Sepsis, unspecified organism Status: Acute (6) Parkinsons: Code(s): G20 - Parkinson's disease Status: Acute (7) Rhabdomyolysis: Code(s): M62.82 - Rhabdomyolysis Status: Acute (8) Bacteremia due to Klebsiella pneumoniae: Code(s): R78.81 - Bacteremia; B96.1 - Klebsiella pneumoniae [K. pneumoniae] as the cause of diseases classified elsewhere Status: Acute Plan 04/29/22 The patient presented to the ER with altered mental status and met sepsis criteria with fever, tachycardia, leukocytosis and confusion. Cultures obtained, he received appropriate fluid resuscitation and was started on Primaxin and Vanco. LP was attempted but was unsuccessful (he has severe spinal stenosis per family). CXR clear.? UA not consistent with UTI and UCx negative.Lactic acid level normal now. WBC down to 12K. Vanco stopped. Concern for GI source so CT A/P ordered showing GB edema and inflammatry chanes. RUQ ordered showing acute cholecystitis. He does not have any significnat pain in the RUQ but this has to be the most likely source. GenSurg consult.? Given acute decline 04/28, patient was urgently taken for percutaneous cholecystostomy tube placement.? Blood cultures growing Klebsiella, given high propensity of ESBL will maintain on ertapenem until sensitivities results.? Patient noted to go into AFib with RVR 04/28, now on amiodarone drip.? Cardiology following.? Likely secondary to acute sepsis.? Will defer to Cardiology regarding echocardiogram.? Patient now on therapeutic Lovenox Patient with altered mental status on admission.? [place] related to his fever and sepsis symptoms.? Fever has resolved.? Bacteremia currently being treated.? His confusion was much better yesterday but has worsened today. Related to worsening GB disease despite benign exam? Glucose normal. VS sable. Not felt related to medications that were missed. No hx of alcohol use. Related to Primaxin? Doubt meningitis since we have a more likely diagnosis. Continue to follow. Continue supportive care. Elevate HOB. NPO. Sitter. Patient has syncopal episode associated with falls.? Cervical spine CT showed no fracture dislocation.? CT the brain showed atherosclerosis with chronic small vessel ischemic changes but no acute findings.? Suspect the syncopal episode of falls were related to above. Hold PT and OT. Patient with elevated AST with normal ALT.? Given his falls and time on the ground, total CK was checked and was 2300.? He was started on IV fluids.? Renal function is stable. Total CK trending down. Follow Patient's blood pressure
--- NOTE | 2022-04-30 10:12 | PM.PNCARD ---
Progress Note: A&P Assessment and Plan (1) Atrial fibrillation with RVR: Code(s): I48.91 - Unspecified atrial fibrillation Status: Acute Assessment and Plan: Acute onset of atrial fibrillation with RVR in the setting of cholecystitis. Attempting rhythm control with IV amiodarone but he remains in atrial fibrillation thus far. Rate reasonably controlled. Will continue IV amiodarone for now, hopefully he will chemically convert with this. Can titrate metoprolol if his rate is not well controlled or he becomes symptomatic. Continue anticoagulation with lovenox. 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 Subjective Date/time seen: 04/30/22 10:12 Interval history: This is a 71-year-old man with: Acute onset of atrial fibrillation with RVR in the setting of acute cholecystitis with picture of sepsis. Patient has been placed on intravenous amiodarone and is receiving intravenous metoprolol for rate control. Feels much better today but still in atrial fib with heart rate between 100-120. Date of service 04/30/2022: Remains on IV amiodarone with heart rate 100-120. He is feeling okay with this, does not feel any palpitations, shortness of breath, or chest pain. Review of Systems Review of Systems: ROS unobtainable: Yes unobtainable due to mental status (Pt is delerious and can not give a good hx.) Constitutional: Constitutional: Denies chills (fevers) Eyes: Eyes: Reports no additional eye complaints ENT: Denies epistaxis Cardiovascular: Cardiovascular: Reports chest pain (a little tightness) and Denies dyspnea Respiratory: Respiratory: Denies chest congestion, Denies cough and Denies dyspnea Gastrointestinal: Gastrointestinal: Denies abdominal pain, Denies hematochezia and Denies heartburn Genitourinary: Genitourinary: Denies hematuria Musculoskeletal: Musculoskeletal: Reports no additional musculoskeletal complaints Integumentary/Breasts: Skin/Breast: Reports system reviewed and no additional complaints, except as docu Neurologic: Reports confusion Psychiatric: Psychiatric: Reports confusion Exam Const: General: cooperative, comfortable, no acute distress, confusion and uncomfortable Orientation/consciousness: oriented to person, No patient oriented x3 and confusion Other: Pleasant tall gentleman appearing his stated age no distress HENMT: Mouth: Yes moist mucous membranes and Yes dry mucous membranes Eyes: Sclera: sclerae normal EOM: EOMs intact bilaterally Neck: Neck: supple and no JVD Thyroid: thyroid normal Resp: Effort & Inspection: normal respiratory effort Auscultation: clear to auscultation bilaterally Cardio: Rate: regular rate and tachycardic Rhythm: abnormal rhythm irregularly irregular Heart sounds: no murmurs GI: Inspection: normal to inspection Auscultation: abnormal bowel sounds (No bowel sounds) Skin: General skin exam: normal color and no rashes or lesions noted Neuro: General: oriented to person, No patient oriented x3 and confusion Other: normal mentation Extrem: Right lower extremity: no edema Left lower extremity: no edema Psych: Appearance: grossly abnormal Mental Status: mental status grossly normal Affect: No normal affect Objective Data Vital Signs Vital Signs: Vital Signs - 24 hr 04/29/22 11:00 04/29/22 11:55 04/29/22 12:00 Temperature 38.2 C H 38.2 C H Pulse Rate 119 H 118 H Respiratory Rate 18 Blood Pressure 119/87 Pulse Oximetry 98 Oxygen Delivery 04/29/22 12:00 04/29/22 12:00 04/29/22 16:11 Temperature Pulse Rate 111 H 117 H Respiratory Rate Blood Pressure 112/59 L Pulse Oximetry Oxygen Delivery Room Air 04/29/22 14:00 04/29/22 16:00 04/29/22 16:00 Temperature 37.9 C H Pulse Rate 121 H 120 H 120 H Respiratory Rate 22 H Blood Pressure 112/59 L Pulse Oximetry 9
[2022-04-30] MEDS: METOPROLOL TARTRATE INJ 5 MG/5 ML VIAL IV PUSH (12:01)
[2022-04-30] MEDS: ERTAPENEM 1 GM/NS 50 ML 1 GM/50 ML BAG IVPB (13:25)
--- NOTE | 2022-04-30 13:36 | PM.PNGS ---
Progress Note: A&P Assessment and Plan (1) Cholelithiasis and acute cholecystitis with obstruction: Code(s): K80.01 - Calculus of gallbladder with acute cholecystitis with obstruction Status: Acute Assessment and Plan: S/p cholecystostomy tube placement 04/28/2022. Bile cultures pending. Fevers improving, afebrile today. WBC normal. Continue IV antibiotics. Advance to a heart healthy diet. Could consider a laparoscopic cholecystectomy once more medically stable and sepsis has resolved. (2) Abnormal LFTs: Code(s): R79.89 - Other specified abnormal findings of blood chemistry Status: Acute Assessment and Plan: LFTs trending down. Likely related to acute cholecystitis. If LFTs begin trending up, then could consider evaluating the common bile duct for stones. (3) Atrial fibrillation with RVR: Code(s): I48.91 - Unspecified atrial fibrillation Status: Acute (4) Altered mental status: Qualifiers: Altered mental status type: delirium Qualified Code(s): R41.0 - Disorientation, unspecified Code(s): R41.82 - Altered mental status, unspecified Status: Acute Assessment and Plan: Resolved. (5) Sepsis: Qualifiers: Sepsis acute organ dysfunction status: with acute organ dysfunction Sepsis type: sepsis due to unspecified organism Severe sepsis acute organ dysfunction type: encephalopathy Severe sepsis shock status: without septic shock Qualified Code(s): A41.9 - Sepsis, unspecified organism; R65.20 - Severe sepsis without septic shock; G93.40 - Encephalopathy, unspecified Code(s): A41.9 - Sepsis, unspecified organism Status: Acute Assessment and Plan: Blood cx on 04/25 growing Klebsiella oxytoca. Urine cx negative. Bile cx pending. Repeat blood cx pending. Continue IV antibiotics. Likely related to acute cholecystitis. Plan I have discussed the patient's case and plan of care with Dr. Ohara. Subjective Subjective Date/Time Seen: 04/30/22 13:00 Patient reports: no new complaints, feels better, tolerating liquids well, flatus, no bowel movement and afebrile (since 1600 yesterday) Interval history: Patient seen and examined. He continues to feel better daily. He denies any back or abdominal pain today. No nausea or vomiting. Tolerating full liquids and reports a good appetite. No other complaints at this time. Review of Systems Review of Systems: All systems reviewed & are unremarkable except as noted in HPI and below Exam Const: General: comfortable, no acute distress and awake Orientation/consciousness: patient oriented x3 GI: Inspection: non-distended and other (Cholecystostomy tube in the right upper quadrant draining bile) GI Palp: Yes Soft to palpation, No Tenderness to palpation present (GI) and No Guarding due to palpation present (GI) Auscultation: normal bowel sounds Neuro: General: no focal motor deficits Extrem: General: no calf tenderness and no edema Psych: Thought process: Normal thought process present Insight: Good insight present (Psych) Objective Data Vital Signs Vital Signs: Vital Signs - 24 hr 04/29/22 16:11 04/29/22 14:00 04/29/22 16:00 Temperature Pulse Rate 117 H 121 H 120 H Respiratory Rate Blood Pressure 112/59 L Pulse Oximetry Oxygen Delivery 04/29/22 16:00 04/29/22 16:00 04/29/22 18:00 Temperature 100.3 F H 97.8 F Pulse Rate 120 H 115 H Respiratory Rate 22 H 18 Blood Pressure 112/59 L 136/97 H Pulse Oximetry 95 97 Oxygen Delivery Room Air 04/29/22 18:30 04/29/22 20:00 04/29/22 20:48 Temperature 98.0 F Pulse Rate 125 H 131 H 128 H Respiratory Rate 18 Blood Pressure 136/85 Pulse Oximetry 99 Oxygen Delivery 04/29/22 20:49 04/29/22 20:49 04/29/22 20:00 Temperature Pulse Rate 128 H 128 H 125 H Respiratory Rate Blood Pressure Pulse Oximetry Oxygen Delivery 04/29/22 20:00 04/29/22 22:00 04/29
[2022-05-01] VITALS (23 sets, daily range): BP systolic 128–142; BP diastolic 81–97; PULSE 49–139; RESP 12–98; TEMP 36.3–37.1; O2SAT 20–98
[2022-05-01] MEDS: AMIODARONE 360 MG/D5W 200 ML 360 MG/200 ML BAG 33.33 MG IV CONT ×2 (02:23→08:37)
[2022-05-01 05:04] LABS: Basophils Percent Auto 0.3 % (0.2-1.2); Eosinophils Absolute Auto 0.1 K/mm3 (0-0.3); Eosinophils Percent Auto 1.3 % (0-4.4); Hematocrit 31.8 % (42.0-52.0); Hemoglobin 10.4 g/dL (14.0-18.0); Immature Granulocyte Absolute 0.06 K/mm3 (0.00-0.031); Immature Granulocyte Percent A 0.9 % (0-0.5); Lymphocytes Absolute Auto 0.92 K/mm3 (0.9-3.2); Lymphocytes Percent Auto 13.8 % (18.3-44.2); Mean Corpuscular HGB Conc 32.7 g/dl (32-36); Mean Corpuscular Hemoglobin 30.8 pg (26-34); Mean Corpuscular Volume 94.1 fl (80-100); Mean Platelet Volume 11.7 fl (7.4-10.4); Monocytes Absolute Auto 0.6 K/mm3 (0.1-0.6); Monocytes Percent Auto 8.8 % (2.6-8.5); Neutrophils Percent Auto 74.9 % (45.5-73.1); Platelet Count Result 142 k/mm3 (150-375); Red Blood Count 3.38 M/mm3 (4.6-6.20); White Blood Count 6.7 K/mm3 (4.5-10.0)
[2022-05-01 05:20] LABS: Alanine Aminotransferase 27 U/L (6-50); Albumin Level 2.8 g/dL (3.5-5.1); Alkaline Phosphatase 181 U/L (38-126); Anion Gap 6 mmol/L (8-16); Aspartate Amino Transferase 43 U/L (17-59); Bilirubin,Total 1.4 mg/dL (0.2-1.3); Blood Urea Nitrogen 14 mg/dL (9-20); Calcium 7.7 mg/dL (8.4-10.2); Carbon Dioxide 23 mmol/L (22-30); Chloride 104 mmol/L (98-107); Creatine Kinase 91 U/L (55-170); Estimated CRCL calculation 83 ml/min; Estimated Glomerular Filt Rate > 60; Glucose 99 mg/dL (65-110); Magnesium 2.1 mg/dL (1.6-2.3); Phosphorus 2.8 mg/dL (2.5-4.5); Potassium 3.2 mmol/L (3.4-5.0); Sodium 133 mmol/L (137-145)
--- NOTE | 2022-05-01 08:37 | PM.PNCARD ---
Progress Note: A&P Assessment and Plan (1) Atrial fibrillation with RVR: Code(s): I48.91 - Unspecified atrial fibrillation Status: Acute Assessment and Plan: Acute onset of atrial fibrillation with RVR in the setting of cholecystitis. Attempting rhythm control with IV amiodarone but he remains in atrial fibrillation thus far. Rate generally in the 120's. He is asymptomatic. Will shift him to p.o. amiodarone today. Discontinue IV amiodarone after first dose of p.o. amio given. Increase metoprolol to 25mg q12h Continue anticoagulation with lovenox. 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 Subjective Date/time seen: 05/01/22 08:37 Interval history: This is a 71-year-old man with: Acute onset of atrial fibrillation with RVR in the setting of acute cholecystitis with picture of sepsis. Patient has been placed on intravenous amiodarone and is receiving intravenous metoprolol for rate control. Feels much better today but still in atrial fib with heart rate between 100-120. Date of service 04/30/2022: Remains on IV amiodarone with heart rate 100-120. He is feeling okay with this, does not feel any palpitations, shortness of breath, or chest pain. Date of service 05/01/2022: Feels about the same today. No complaints of any kind today. He remains in atrial fibrillation. Review of Systems Review of Systems: ROS unobtainable: Yes unobtainable due to mental status (Pt is delerious and can not give a good hx.) Constitutional: Constitutional: Denies chills (fevers) Eyes: Eyes: Reports no additional eye complaints ENT: Denies epistaxis Cardiovascular: Cardiovascular: Reports chest pain (a little tightness) and Denies dyspnea Respiratory: Respiratory: Denies chest congestion, Denies cough and Denies dyspnea Gastrointestinal: Gastrointestinal: Denies abdominal pain, Denies hematochezia and Denies heartburn Genitourinary: Genitourinary: Denies hematuria Musculoskeletal: Musculoskeletal: Reports no additional musculoskeletal complaints Integumentary/Breasts: Skin/Breast: Reports system reviewed and no additional complaints, except as docu Neurologic: Reports confusion Psychiatric: Psychiatric: Reports confusion Exam Const: General: cooperative, comfortable, no acute distress, confusion and uncomfortable Orientation/consciousness: oriented to person, No patient oriented x3 and confusion Other: Pleasant tall gentleman appearing his stated age no distress HENMT: Mouth: Yes moist mucous membranes and Yes dry mucous membranes Eyes: Sclera: sclerae normal EOM: EOMs intact bilaterally Neck: Neck: supple and no JVD Thyroid: thyroid normal Resp: Effort & Inspection: normal respiratory effort Auscultation: clear to auscultation bilaterally Cardio: Rate: regular rate and tachycardic Rhythm: regular rhythm and abnormal rhythm irregularly irregular Heart sounds: no murmurs GI: Inspection: normal to inspection Auscultation: abnormal bowel sounds (No bowel sounds) Skin: General skin exam: normal color and no rashes or lesions noted Neuro: General: oriented to person, No patient oriented x3 and confusion Other: normal mentation Extrem: Right lower extremity: no edema Left lower extremity: no edema Psych: Appearance: grossly abnormal Mental Status: mental status grossly normal Affect: No normal affect Objective Data Vital Signs Vital Signs: Vital Signs - 24 hr 04/30/22 10:00 04/30/22 12:01 04/30/22 12:00 Temperature 37.2 C Pulse Rate 121 H 124 H 120 H Respiratory Rate 20 Blood Pressure 136/98 H Pulse Oximetry 97 Oxygen Delivery 04/30/22 12:30 04/30/22 14:00 04/30/22 14:14 Temperature Pulse Rate 124 H 115 H 122 H Respiratory Rate Blood Pressure Pulse Oximetry Oxygen Delivery 04/30/22 16:00 04/30/22 16:00 04/30/22 18:00 Temperat
[2022-05-01] MEDS: METOPROLOL TARTRATE INJ 5 MG/5 ML VIAL IV PUSH ×2 (08:38→22:05)
[2022-05-01] MEDS: ENOXAPARIN 100 MG/ML SYRINGE 90 MG SUB-Q ×2 (08:38→20:12)
[2022-05-01] MEDS: ASPIRIN 81 MG CHEWABLE TABLET PO (08:38)
[2022-05-01] MEDS: lisinopriL 10 MG TABLET PO (08:39)
[2022-05-01] MEDS: PANTOPRAZOLE SODIUM IV 40 MG VIAL IV PUSH ×2 (08:39→20:16)
[2022-05-01] MEDS: METOPROLOL TARTRATE 12.5 MG TABLET PO (08:39)
--- NOTE | 2022-05-01 08:43 | PM.PNGS ---
Progress Note: A&P Assessment and Plan (1) Cholelithiasis and acute cholecystitis with obstruction: Code(s): K80.01 - Calculus of gallbladder with acute cholecystitis with obstruction Status: Acute Assessment and Plan: relieved with cholecystostomy tube placement. Stable at this time. Patient is still too ill to consider cholecystectomy. (2) Bacteremia due to Klebsiella pneumoniae: Code(s): R78.81 - Bacteremia; B96.1 - Klebsiella pneumoniae [K. pneumoniae] as the cause of diseases classified elsewhere Status: Acute Assessment and Plan: Continue antibiotics (3) Atrial fibrillation with RVR: Code(s): I48.91 - Unspecified atrial fibrillation Status: Acute Assessment and Plan: persists (4) Parkinsons: Code(s): G20 - Parkinson's disease Status: Acute Assessment and Plan: back on home meds Subjective Subjective Date/Time Seen: 05/01/22 08:43 Post Op day: 3 ( day 3 status post percutaneous cholecystostomy tube) Patient reports: no new complaints, tolerating a regular diet and afebrile Review of Systems Review of Systems: All systems reviewed & are unremarkable except as noted in HPI and below ( HPI) Exam Const: General: cooperative, comfortable and awake Cardio: Rate: tachycardic Rhythm: abnormal rhythm irregularly irregular and other ( atrial fibrillation with tachycardia persists) GI: Inspection: non-distended and other ( cholecystostomy tube draining green bile) GI Palp: Yes Soft to palpation and No Tenderness to palpation present (GI) Auscultation: normal bowel sounds Objective Data Vital Signs Vital Signs: Vital Signs - 24 hr 04/30/22 10:00 04/30/22 12:01 04/30/22 12:00 Temperature 37.2 C Pulse Rate 121 H 124 H 120 H Respiratory Rate 20 Blood Pressure 136/98 H Pulse Oximetry 97 Oxygen Delivery 04/30/22 12:30 04/30/22 14:00 04/30/22 14:14 Temperature Pulse Rate 124 H 115 H 122 H Respiratory Rate Blood Pressure Pulse Oximetry Oxygen Delivery 04/30/22 16:00 04/30/22 16:00 04/30/22 18:00 Temperature 37.1 C Pulse Rate 118 H 110 H 125 H Respiratory Rate 18 Blood Pressure 130/90 Pulse Oximetry 99 Oxygen Delivery 04/30/22 20:24 04/30/22 20:15 04/30/22 20:00 Temperature 36.9 C Pulse Rate 128 H 128 H 114 H Respiratory Rate 20 Blood Pressure 128/81 Pulse Oximetry 98 Oxygen Delivery 04/30/22 20:00 04/30/22 20:00 04/30/22 21:51 Temperature Pulse Rate 130 H 130 H 124 H Respiratory Rate 20 Blood Pressure Pulse Oximetry 98 Oxygen Delivery Room Air 05/01/22 00:00 05/01/22 00:00 05/01/22 00:00 Temperature 36.9 C Pulse Rate 78 121 H 121 H Respiratory Rate 12 12 Blood Pressure 138/83 Pulse Oximetry 97 97 Oxygen Delivery Room Air 05/01/22 02:23 05/01/22 02:00 05/01/22 04:00 Temperature 37.1 C Pulse Rate 124 H 118 H 117 H Respiratory Rate 12 Blood Pressure 137/81 Pulse Oximetry 98 Oxygen Delivery 05/01/22 04:00 05/01/22 04:00 05/01/22 06:00 Temperature Pulse Rate 121 H 121 H 124 H Respiratory Rate 12 Blood Pressure Pulse Oximetry 98 Oxygen Delivery Room Air 05/01/22 08:37 05/01/22 08:38 05/01/22 08:39 Temperature Pulse Rate 123 H 123 H 123 H Respiratory Rate Blood Pressure Pulse Oximetry Oxygen Delivery Intake/Output Intake/Output: Intake & Output 04/28/22 04/29/22 04/30/22 05/01/22 23:59 23:59 23:59 23:59 Intake Total 2750 4830 4550 450 Output Total 1785 525 920 550 Balance 965 4305 3630 -100 Meds/Results Medications: Active Medications Generic Name Dose Route Start Last Admin Trade Name Alex PRN Reason Stop Dose Admin Acetaminophen 650 mg 04/26/22 02:43 04/29/22 11:55 Acetaminophen 325 Mg Tablet PO 650 mg Q4H PRN Administration Mild Pain (1-3) or Fever Aspirin 81 mg 04/28/22 17:20 05/01/22 08:38 Aspirin 81 Mg Chewable Tab
[2022-05-01] MEDS: POTASSIUM CHLORIDE 20 MEQ PACKET (FOR LIQUID) 40 MEQ PO ×2 (09:11→18:12)
[2022-05-01] MEDS: AMIODARONE HCL 200 MG TABLET 400 MG PO ×2 (11:50→18:09)
[2022-05-01] MEDS: ERTAPENEM 1 GM/NS 50 ML 1 GM/50 ML BAG IVPB (18:12)
[2022-05-01] MEDS: METOPROLOL TARTRATE 25 MG TABLET PO (20:16)
[2022-05-01] MEDS: CARBIDOPA/LEVODOPA 25/250 MG TABLET 1 TABLET PO (21:21)
[2022-05-02] VITALS (16 sets, daily range): BP systolic 126–149; BP diastolic 65–97; PULSE 58–118; RESP 18–24; TEMP 36.1–37.4; O2SAT 95–100
[2022-05-02 04:54] LABS: Hematocrit 31.8 % (42.0-52.0); Hemoglobin 10.3 g/dL (14.0-18.0); Mean Corpuscular HGB Conc 32.4 g/dl (32-36); Mean Corpuscular Volume 95.8 fl (80-100); Mean Platelet Volume 11.4 fl (7.4-10.4); Platelet Count Result 161 k/mm3 (150-375); Red Blood Count 3.32 M/mm3 (4.6-6.20); Red Cell Distribution Width 14.1 % (11.5-14.5)
[2022-05-02 05:09] LABS: Alanine Aminotransferase 9 U/L (6-50); Albumin Level 2.7 g/dL (3.5-5.1); Alkaline Phosphatase 172 U/L (38-126); Anion Gap 6 mmol/L (8-16); Aspartate Amino Transferase 31 U/L (17-59); Bilirubin,Total 1.4 mg/dL (0.2-1.3); Blood Urea Nitrogen 15 mg/dL (9-20); Calcium 7.6 mg/dL (8.4-10.2); Carbon Dioxide 24 mmol/L (22-30); Chloride 106 mmol/L (98-107); Estimated CRCL calculation 76 ml/min; Estimated Glomerular Filt Rate > 60; Glucose 92 mg/dL (65-110); Magnesium 2.1 mg/dL (1.6-2.3); Phosphorus 3.2 mg/dL (2.5-4.5); Potassium 3.8 mmol/L (3.4-5.0); Sodium 136 mmol/L (137-145)
[2022-05-02] MEDS: CARBIDOPA/LEVODOPA 25/250 MG TABLET 1 TABLET PO ×3 (05:29→23:56)
[2022-05-02] MEDS: ENOXAPARIN 100 MG/ML SYRINGE 90 MG SUB-Q ×2 (10:03→20:44)
[2022-05-02] MEDS: AMIODARONE HCL 200 MG TABLET 400 MG PO ×2 (10:03→17:37)
[2022-05-02] MEDS: PANTOPRAZOLE SODIUM IV 40 MG VIAL IV PUSH ×2 (10:03→20:43)
[2022-05-02] MEDS: METOPROLOL TARTRATE 25 MG TABLET PO ×2 (10:03→13:42)
[2022-05-02] MEDS: lisinopriL 10 MG TABLET PO (10:04)
[2022-05-02] MEDS: ASPIRIN 81 MG CHEWABLE TABLET PO (10:04)
--- NOTE | 2022-05-02 10:49 | PM.IMPN ---
Progress Note: A&P Assessment and Plan (1) Cholelithiasis and acute cholecystitis with obstruction: Code(s): K80.01 - Calculus of gallbladder with acute cholecystitis with obstruction Status: Acute (2) Abnormal LFTs: Code(s): R79.89 - Other specified abnormal findings of blood chemistry Status: Acute (3) Atrial fibrillation with RVR: Code(s): I48.91 - Unspecified atrial fibrillation Status: Acute (4) Altered mental status: Qualifiers: Altered mental status type: delirium Qualified Code(s): R41.0 - Disorientation, unspecified Code(s): R41.82 - Altered mental status, unspecified Status: Acute (5) Sepsis: Qualifiers: Sepsis acute organ dysfunction status: with acute organ dysfunction Sepsis type: sepsis due to unspecified organism Severe sepsis acute organ dysfunction type: encephalopathy Severe sepsis shock status: without septic shock Qualified Code(s): A41.9 - Sepsis, unspecified organism; R65.20 - Severe sepsis without septic shock; G93.40 - Encephalopathy, unspecified Code(s): A41.9 - Sepsis, unspecified organism Status: Acute (6) Parkinsons: Code(s): G20 - Parkinson's disease Status: Acute (7) Rhabdomyolysis: Code(s): M62.82 - Rhabdomyolysis Status: Acute (8) Bacteremia due to Klebsiella pneumoniae: Code(s): R78.81 - Bacteremia; B96.1 - Klebsiella pneumoniae [K. pneumoniae] as the cause of diseases classified elsewhere Status: Acute Plan 04/29/22 The patient presented to the ER with altered mental status and met sepsis criteria with fever, tachycardia, leukocytosis and confusion. Cultures obtained, he received appropriate fluid resuscitation and was started on Primaxin and Vanco. LP was attempted but was unsuccessful (he has severe spinal stenosis per family). CXR clear.? UA not consistent with UTI and UCx negative.Lactic acid level normal now. WBC down to 12K. Vanco stopped. Concern for GI source so CT A/P ordered showing GB edema and inflammatry chanes. RUQ ordered showing acute cholecystitis. He does not have any significnat pain in the RUQ but this has to be the most likely source. GenSurg consult.? Given acute decline 04/28, patient was urgently taken for percutaneous cholecystostomy tube placement.? Blood cultures growing Klebsiella, given high propensity of ESBL will maintain on ertapenem until sensitivities results.? Patient noted to go into AFib with RVR 04/28, now on amiodarone drip.? Cardiology following.? Likely secondary to acute sepsis.? Will defer to Cardiology regarding echocardiogram.? Patient now on therapeutic Lovenox Patient with altered mental status on admission.? [place] related to his fever and sepsis symptoms.? Fever has resolved.? Bacteremia currently being treated.? His confusion was much better yesterday but has worsened today. Related to worsening GB disease despite benign exam? Glucose normal. VS sable. Not felt related to medications that were missed. No hx of alcohol use. Related to Primaxin? Doubt meningitis since we have a more likely diagnosis. Continue to follow. Continue supportive care. Elevate HOB. NPO. Sitter. Patient has syncopal episode associated with falls.? Cervical spine CT showed no fracture dislocation.? CT the brain showed atherosclerosis with chronic small vessel ischemic changes but no acute findings.? Suspect the syncopal episode of falls were related to above. Hold PT and OT. Patient with elevated AST with normal ALT.? Given his falls and time on the ground, total CK was checked and was 2300.? He was started on IV fluids.? Renal function is stable. Total CK trending down. Follow Patient's blood pressure was reviewed on 04/28 Blood pressure remains well controlled.? Will continue to follow Patient's med list shows that he takes Sinemet as needed and this was verified with patient.? Continue the same. Resume PT/OT when able. 04/30/22 cpk normalizing WBC WNLs new onset afib cardiolo
--- NOTE | 2022-05-02 12:04 | ECG_ITS ---
Measurements Intervals [place] Rate: 61 P: 39 ME: 152 QRS: -7 QRSD: 85 T: 5 QT: 432 QTc: 439 Interpretive Statements SINUS RHYTHM NONSPECIFIC ST ABNORMALITY LOW QRS VOLTAGE IN PRECORDIAL LEADS BORDERLINE ECG COMPARED TO ECG 04/28/2022 13:30:10 SINUS RHYTHM NOW PRESENT Electronically Signed On 05-02-2022 13:34:28 CDT by Kar Vazquez M.D.
--- NOTE | 2022-05-02 13:04 | PM.PNCARD ---
Progress Note: A&P Assessment and Plan (1) Atrial fibrillation with RVR: Code(s): I48.91 - Unspecified atrial fibrillation Status: Acute Assessment and Plan: Acute onset of atrial fibrillation with RVR in the setting of cholecystitis. Transitioned to amiodarone 400 mg p.o. b.i.d. Rate generally in the 100-120's. He is asymptomatic. If heart rate poorly controlled or BP limits further escalation may need to utilize IV amiodarone once again. Continue to monitor. Increase metoprolol to 50 mg p.o. q.8 hours as BP permits Continue anticoagulation with lovenox. Follow H&H, monitor for bleeding. If unable to control heart rate may need to consider cardioversion but will attempt rate control in the interval as appropriate and avoid cardioversion if possible particularly given clinical status. (2) Cholelithiasis and acute cholecystitis with obstruction: Code(s): K80.01 - Calculus of gallbladder with acute cholecystitis with obstruction Status: Acute Assessment and Plan: Per surgical service. Status post percutaneous cholecystostomy tube postop day 4 (3) Sepsis: Qualifiers: Sepsis acute organ dysfunction status: with acute organ dysfunction Sepsis type: sepsis due to unspecified organism Severe sepsis acute organ dysfunction type: encephalopathy Severe sepsis shock status: without septic shock Qualified Code(s): A41.9 - Sepsis, unspecified organism; R65.20 - Severe sepsis without septic shock; G93.40 - Encephalopathy, unspecified Code(s): A41.9 - Sepsis, unspecified organism Status: Acute Assessment and Plan: Klebsiella bacteremia. Repeat cultures negative, remains on antibiotics. Management per primary service and surgery. Hemodynamically stable, tolerating lisinopril. Discontinue if relative hypotension. Subjective Date/time seen: Date of service: 05/02/22 13:04 Interval history: This is a 71-year-old man with: Acute onset of atrial fibrillation with RVR in the setting of acute cholecystitis with picture of sepsis. Patient has been placed on intravenous amiodarone and is receiving intravenous metoprolol for rate control. Feels much better today but still in atrial fib with heart rate between 100-120. 04/30/2022: Remains on IV amiodarone with heart rate 100-120. He is feeling okay with this, does not feel any palpitations, shortness of breath, or chest pain. 05/01/2022: Feels about the same today. No complaints of any kind today. He remains in atrial fibrillation. Date of service: 05/02/2022 patient feels beat up he states. Fatigue. Denies palpitations, chest pain or shortness of breath. Some abdominal discomfort. Remains in AFib with RVR on telemetry. Heart rate generally 100s to 120s Review of Systems Review of Systems: ROS unobtainable: Yes unobtainable due to mental status (Pt is delerious and can not give a good hx.) Constitutional: Constitutional: Denies chills (fevers) Eyes: Eyes: Reports no additional eye complaints ENT: Denies epistaxis Cardiovascular: Cardiovascular: Reports chest pain (a little tightness) and Denies dyspnea Respiratory: Respiratory: Denies chest congestion, Denies cough and Denies dyspnea Gastrointestinal: Gastrointestinal: Denies abdominal pain, Denies hematochezia and Denies heartburn Genitourinary: Genitourinary: Denies hematuria Musculoskeletal: Musculoskeletal: Reports no additional musculoskeletal complaints Integumentary/Breasts: Skin/Breast: Reports system reviewed and no additional complaints, except as docu Neurologic: Reports confusion Psychiatric: Psychiatric: Reports confusion Exam Const: General: cooperative, comfortable, no acute distress, confusion and uncomfortable Orientation/consciousness: oriented to person, No patient oriented x3 and confusion Other: Pleasant gentleman appearing his stated age no distress but appearing fatigued sitting upright in bed somewhat sleepy but awake
[2022-05-02] MEDS: ERTAPENEM 1 GM/NS 50 ML 1 GM/50 ML BAG IVPB (13:42)
[2022-05-02] MEDS: METOPROLOL TARTRATE 50 MG TAB PO (17:37)
[2022-05-03] VITALS (17 sets, daily range): BP systolic 122–155; BP diastolic 58–73; PULSE 48–107; RESP 16–20; TEMP 36.4–36.8; O2SAT 93–99
--- NOTE | 2022-05-03 04:00 | PC.NURSE ---
received transfer from IMU
[2022-05-03 04:57] LABS: Hematocrit 31.1 % (42.0-52.0); Mean Corpuscular HGB Conc 32.2 g/dl (32-36); Mean Corpuscular Hemoglobin 31.1 pg (26-34); Mean Corpuscular Volume 96.6 fl (80-100); Mean Platelet Volume 11.9 fl (7.4-10.4); Platelet Count Result 208 k/mm3 (150-375); Red Blood Count 3.22 M/mm3 (4.6-6.20); Red Cell Distribution Width 14.1 % (11.5-14.5); White Blood Count 6.7 K/mm3 (4.5-10.0)
[2022-05-03 05:11] LABS: Alanine Aminotransferase 6 U/L (6-50); Albumin Level 2.6 g/dL (3.5-5.1); Alkaline Phosphatase 147 U/L (38-126); Anion Gap 7 mmol/L (8-16); Aspartate Amino Transferase 23 U/L (17-59); Bilirubin,Total 1.1 mg/dL (0.2-1.3); Blood Urea Nitrogen 24 mg/dL (9-20); Carbon Dioxide 25 mmol/L (22-30); Chloride 105 mmol/L (98-107); Estimated CRCL calculation 75 ml/min; Estimated Glomerular Filt Rate > 60; Glucose 89 mg/dL (65-110); Magnesium 2.1 mg/dL (1.6-2.3); Phosphorus 3.3 mg/dL (2.5-4.5); Potassium 3.9 mmol/L (3.4-5.0); Sodium 137 mmol/L (137-145)
--- NOTE | 2022-05-03 07:53 | P.PNIM_ITS ---
Progress Note: A&P Assessment and Plan (1) Cholelithiasis and acute cholecystitis with obstruction: Code(s): K80.01 - Calculus of gallbladder with acute cholecystitis with obstruction Status: Acute (2) Abnormal LFTs: Code(s): R79.89 - Other specified abnormal findings of blood chemistry Status: Acute (3) Atrial fibrillation with RVR: Code(s): I48.91 - Unspecified atrial fibrillation Status: Acute (4) Sepsis: Qualifiers: Sepsis acute organ dysfunction status: with acute organ dysfunction Sepsis type: sepsis due to unspecified organism Severe sepsis acute organ d ysfunction type: encephalopathy Severe sepsis shock status: without septic shock Qualified Code(s): A41.9 - Sepsis, unspecified organism; R65.20 - Severe sepsis without septic shock; G93.40 - Encephalopathy, unspecified Code(s): A41.9 - Sepsis, unspecified organism Status: Acute (5) Parkinsons: Code(s): G20 - Parkinson's disease Status: Acute (6) Rhabdomyolysis: Code(s): M62.82 - Rhabdomyolysis Status: Acute (7) Bacteremia due to Klebsiella pneumoniae: Code(s): R78.81 - Bacteremia; B96.1 - Klebsiella pneumoniae [K. pneumoniae] as the cause of diseases classified elsewhere Status: Acute (8) Cholecystostomy care: Code(s): Z43.4 - Encounter for attention to other artificial openings of digestive tract Status: Acute (9) Hypertension: Code(s): I10 - Essential (primary) hypertension Status: Acute (10) Metabolic encephalopathy: Code(s): G93.41 - Metabolic encephalopathy Status: Acute (11) Bradycardia: Code(s): R00.1 - Bradycardia, unspecified Status: Acute Plan 04/29/22 The patient presented to the ER with altered mental status and met sepsis criteria with fever, tachycardia, leukocytosis and confusion. Cultures obtained, he received appropriate fluid resuscitation and was started on Primaxin and Vanco. LP was attempted but was unsuccessful (he has severe spinal stenosis per family). CXR clear.? UA not consistent with UTI and UCx negative.Lactic acid level normal now. WBC down to 12K. Vanco stopped. Concern for GI source so CT A/P ordered showing GB edema and inflammatry chanes. RUQ ordered showing acute cholecystitis. He does not have any significnat pain in the RUQ but this has to be the most likely source. GenSurg consult.? Given acute decline 04/28, patient was urgently taken for percutaneous cholecystostomy tube placement.? Blood cultures growing Klebsiella, given high propensity of ESBL will maintain on ertapenem until sensitivities results.? Patient noted to go into AFib with RVR 04/28, now on amiodarone drip.? Cardiology following.? Likely secondary to acute sepsis.? Will defer to Cardiology regarding echocardiogram.? Patient now on therapeutic Lovenox Patient with altered mental status on admission.? [place] related to his fever and sepsis symptoms.? Fever has resolved.? Bacteremia currently being treated.? His confusion was much better yesterday but has worsened today. Related to worsening GB disease despite benign exam? Glucose normal. VS sable. Not felt related to medications that were missed. No hx of alcohol use. Related to Primaxin? Doubt meningitis since we have a more likely diagnosis. Continue to follow. Continue supportive care. Elevate HOB. NPO. Sitter. Patient has syncopal episode associated with falls.? Cervical spine CT showed no fracture dislocation.? CT the brain showed atherosclerosis with chronic small vessel ischemic changes but no acute findings.? Suspect the syncopal episode of falls were related to above. Hold PT and OT. P
[2022-05-03] MEDS: ENOXAPARIN 100 MG/ML SYRINGE 90 MG SUB-Q ×2 (08:27→20:46)
[2022-05-03] MEDS: AMIODARONE HCL 200 MG TABLET 400 MG PO (08:27)
[2022-05-03] MEDS: ASPIRIN 81 MG CHEWABLE TABLET PO (08:27)
[2022-05-03] MEDS: lisinopriL 10 MG TABLET PO (08:28)
[2022-05-03] MEDS: PANTOPRAZOLE SODIUM IV 40 MG VIAL IV PUSH ×2 (08:28→20:46)
[2022-05-03] MEDS: ERTAPENEM 1 GM/NS 50 ML 1 GM/50 ML BAG IVPB (14:11)
--- NOTE | 2022-05-03 14:13 | PM.PNCARD ---
Progress Note: A&P Assessment and Plan (1) Atrial fibrillation with RVR: Code(s): I48.91 - Unspecified atrial fibrillation Status: Acute Assessment and Plan: Acute onset of atrial fibrillation with RVR in the setting of cholecystitis. -Continue amiodarone 400 mg p.o. b.i.d. He is asymptomatic. Telemetry Reduce Metoprolol 25mg p.o. BID as tolerated due to bradycardia. May hold if heart rate less than 60 beats per minute. Favor continuation of amiodarone to maintain sinus rhythm in this instance. Continue anticoagulation with lovenox. Follow H&H, monitor for bleeding. Transition to oral systemic anticoagulation when okay from surgical service. Eliquis 5 mg twice daily. (2) Bradycardia: Code(s): R00.1 - Bradycardia, unspecified Status: Acute Assessment and Plan: If symptomatic, noted upon conversion to sinus rhythm on amiodarone and metoprolol. As above, reduce beta-nelida frequency and dose. Continue telemetry. (3) Cholelithiasis and acute cholecystitis with obstruction: Code(s): K80.01 - Calculus of gallbladder with acute cholecystitis with obstruction Status: Acute Assessment and Plan: Per surgical service. Status post percutaneous cholecystostomy tube postop day 4 (4) Sepsis: Qualifiers: Sepsis acute organ dysfunction status: with acute organ dysfunction Sepsis type: sepsis due to unspecified organism Severe sepsis acute organ dysfunction type: encephalopathy Severe sepsis shock status: without septic shock Qualified Code(s): A41.9 - Sepsis, unspecified organism; R65.20 - Severe sepsis without septic shock; G93.40 - Encephalopathy, unspecified Code(s): A41.9 - Sepsis, unspecified organism Status: Acute Assessment and Plan: Klebsiella bacteremia. Repeat cultures negative, remains on antibiotics. Management per primary service and surgery. Hemodynamically stable, tolerating lisinopril. Discontinue if relative hypotension. Subjective Date/time seen: Date of service: 05/03/22 14:13 Interval history: This is a 71-year-old man with: Acute onset of atrial fibrillation with RVR in the setting of acute cholecystitis with picture of sepsis. Patient has been placed on intravenous amiodarone and is receiving intravenous metoprolol for rate control. Feels much better today but still in atrial fib with heart rate between 100-120. 04/30/2022: Remains on IV amiodarone with heart rate 100-120. He is feeling okay with this, does not feel any palpitations, shortness of breath, or chest pain. 05/01/2022: Feels about the same today. No complaints of any kind today. He remains in atrial fibrillation. 05/02/2022 patient feels beat up he states. Fatigue. Denies palpitations, chest pain or shortness of breath. Some abdominal discomfort. Remains in AFib with RVR on telemetry. Heart rate generally 100s to 120s Date of service 05/03/2022: Feels little better. Converted to sinus rhythm yesterday afternoon. Bradycardic with heart rates in the 50s to 60s at times. Beta-nelida held last night and this morning due to bradycardia. Patient denies chest pain, palpitations or shortness of breath. Pain is under control. States he has had 2 bowel movements. Review of Systems Review of Systems: ROS unobtainable: Yes unobtainable due to mental status (Pt is delerious and can not give a good hx.) Constitutional: Constitutional: Denies chills (fevers) Eyes: Eyes: Reports no additional eye complaints ENT: Denies epistaxis Cardiovascular: Cardiovascular: Reports chest pain (a little tightness) and Denies dyspnea Respiratory: Respiratory: Denies chest congestion, Denies cough and Denies dyspnea Gastrointestinal: Gastrointestinal: Denies abdominal pain, Denies hematochezia and Denies heartburn Genitourinary: Genitourinary: Denies hematuria Musculoskeletal: Musculoskeletal: Reports no additional musculoskeletal complaints Integume
[2022-05-03] MEDS: CARBIDOPA/LEVODOPA 25/250 MG TABLET 1 TABLET PO ×2 (19:33→23:27)
[2022-05-04] VITALS (13 sets, daily range): BP systolic 131–155; BP diastolic 57–76; PULSE 47–96; RESP 16–18; TEMP 36.5–36.7; O2SAT 95–99
[2022-05-04 06:13] LABS: Hematocrit 30.5 % (42.0-52.0); Hemoglobin 9.9 g/dL (14.0-18.0); Mean Corpuscular HGB Conc 32.5 g/dl (32-36); Mean Corpuscular Hemoglobin 31.1 pg (26-34); Mean Corpuscular Volume 95.9 fl (80-100); Mean Platelet Volume 11.1 fl (7.4-10.4); Platelet Count Result 205 k/mm3 (150-375); Red Blood Count 3.18 M/mm3 (4.6-6.20); White Blood Count 7.5 K/mm3 (4.5-10.0)
[2022-05-04 06:25] LABS: Alanine Aminotransferase 6 U/L (6-50); Albumin Level 2.6 g/dL (3.5-5.1); Alkaline Phosphatase 129 U/L (38-126); Anion Gap 4 mmol/L (8-16); Aspartate Amino Transferase 24 U/L (17-59); Blood Urea Nitrogen 21 mg/dL (9-20); Calcium 7.9 mg/dL (8.4-10.2); Carbon Dioxide 24 mmol/L (22-30); Chloride 104 mmol/L (98-107); Estimated CRCL calculation 84 ml/min; Estimated Glomerular Filt Rate > 60; Glucose 92 mg/dL (65-110); Phosphorus 3.6 mg/dL (2.5-4.5); Potassium 3.6 mmol/L (3.4-5.0); Sodium 132 mmol/L (137-145)
[2022-05-04] MEDS: CARBIDOPA/LEVODOPA 25/250 MG TABLET 1 TABLET PO ×3 (06:29→23:23)
--- NOTE | 2022-05-04 08:26 | PM.PNCARD ---
Progress Note: A&P Assessment and Plan (1) Atrial fibrillation with RVR: Code(s): I48.91 - Unspecified atrial fibrillation Status: Acute Assessment and Plan: Acute onset of atrial fibrillation with RVR in the setting of cholecystitis. -Continue amiodarone 400 mg p.o. b.i.d. He is asymptomatic. Telemetry Continue metoprolol 25mg b.i.d. May hold if heart rate less than 60 beats per minute. Continue amiodarone 400mg b.i.d. Will decrease to maintenance dose prior to discharge. Continue anticoagulation with lovenox. Follow H&H, monitor for bleeding. Transition to oral systemic anticoagulation when okay from surgical service. Eliquis 5 mg twice daily. (2) Bradycardia: Code(s): R00.1 - Bradycardia, unspecified Status: Acute Assessment and Plan: If symptomatic, noted upon conversion to sinus rhythm on amiodarone and metoprolol. As above, reduce beta-nelida frequency and dose. Continue telemetry. (3) Cholelithiasis and acute cholecystitis with obstruction: Code(s): K80.01 - Calculus of gallbladder with acute cholecystitis with obstruction Status: Acute Assessment and Plan: Per surgical service. Status post percutaneous cholecystostomy tube postop day 4 (4) Sepsis: Qualifiers: Sepsis acute organ dysfunction status: with acute organ dysfunction Sepsis type: sepsis due to unspecified organism Severe sepsis acute organ dysfunction type: encephalopathy Severe sepsis shock status: without septic shock Qualified Code(s): A41.9 - Sepsis, unspecified organism; R65.20 - Severe sepsis without septic shock; G93.40 - Encephalopathy, unspecified Code(s): A41.9 - Sepsis, unspecified organism Status: Acute Assessment and Plan: Klebsiella bacteremia. Repeat cultures negative, remains on antibiotics. Management per primary service and surgery. Hemodynamically stable, tolerating lisinopril. Discontinue if relative hypotension. Subjective Date/time seen: 05/04/22 08:26 Interval history: This is a 71-year-old man with: Acute onset of atrial fibrillation with RVR in the setting of acute cholecystitis with picture of sepsis. Patient has been placed on intravenous amiodarone and is receiving intravenous metoprolol for rate control. Feels much better today but still in atrial fib with heart rate between 100-120. 04/30/2022: Remains on IV amiodarone with heart rate 100-120. He is feeling okay with this, does not feel any palpitations, shortness of breath, or chest pain. 05/01/2022: Feels about the same today. No complaints of any kind today. He remains in atrial fibrillation. 05/02/2022 patient feels beat up he states. Fatigue. Denies palpitations, chest pain or shortness of breath. Some abdominal discomfort. Remains in AFib with RVR on telemetry. Heart rate generally 100s to 120s Date of service 05/03/2022: Feels little better. Converted to sinus rhythm yesterday afternoon. Bradycardic with heart rates in the 50s to 60s at times. Beta-nelida held last night and this morning due to bradycardia. Patient denies chest pain, palpitations or shortness of breath. Pain is under control. States he has had 2 bowel movements. Date of service 05/04/2022: Very fatigued this morning but no other complaints. Remains in sinus rhythm/sinus bradycardia. No chest pain, shortness of breath, palpitations. Review of Systems Review of Systems: ROS unobtainable: Yes unobtainable due to mental status (Pt is delerious and can not give a good hx.) Constitutional: Constitutional: Denies chills (fevers) Eyes: Eyes: Reports no additional eye complaints ENT: Denies epistaxis Cardiovascular: Cardiovascular: Reports chest pain (a little tightness) and Denies dyspnea Respiratory: Respiratory: Denies chest congestion, Denies cough and Denies dyspnea Gastrointestinal: Gastrointestinal: Denies abdominal pain, Denies hematochezia and Denies heartburn Genitour
[2022-05-04] MEDS: ASPIRIN 81 MG CHEWABLE TABLET PO (08:48)
[2022-05-04] MEDS: AMIODARONE HCL 200 MG TABLET 400 MG PO ×2 (08:48→17:11)
[2022-05-04] MEDS: ENOXAPARIN 100 MG/ML SYRINGE 90 MG SUB-Q ×2 (08:48→21:08)
[2022-05-04] MEDS: METOPROLOL TARTRATE 25 MG TABLET PO (08:49)
[2022-05-04] MEDS: PANTOPRAZOLE SODIUM IV 40 MG VIAL IV PUSH ×2 (08:49→21:08)
[2022-05-04] MEDS: lisinopriL 10 MG TABLET PO ×2 (08:49→11:13)
--- NOTE | 2022-05-04 09:05 | PM.IMPN ---
Progress Note: A&P Assessment and Plan (1) Cholelithiasis and acute cholecystitis with obstruction: Code(s): K80.01 - Calculus of gallbladder with acute cholecystitis with obstruction Status: Acute (2) Abnormal LFTs: Code(s): R79.89 - Other specified abnormal findings of blood chemistry Status: Acute (3) Atrial fibrillation with RVR: Code(s): I48.91 - Unspecified atrial fibrillation Status: Acute (4) Sepsis: Qualifiers: Sepsis acute organ dysfunction status: with acute organ dysfunction Sepsis type: sepsis due to unspecified organism Severe sepsis acute organ dysfunction type: encephalopathy Severe sepsis shock status: without septic shock Qualified Code(s): A41.9 - Sepsis, unspecified organism; R65.20 - Severe sepsis without septic shock; G93.40 - Encephalopathy, unspecified Code(s): A41.9 - Sepsis, unspecified organism Status: Acute (5) Parkinsons: Code(s): G20 - Parkinson's disease Status: Acute (6) Rhabdomyolysis: Code(s): M62.82 - Rhabdomyolysis Status: Acute (7) Bacteremia due to Klebsiella pneumoniae: Code(s): R78.81 - Bacteremia; B96.1 - Klebsiella pneumoniae [K. pneumoniae] as the cause of diseases classified elsewhere Status: Acute (8) Cholecystostomy care: Code(s): Z43.4 - Encounter for attention to other artificial openings of digestive tract Status: Acute (9) Hypertension: Code(s): I10 - Essential (primary) hypertension Status: Acute (10) Metabolic encephalopathy: Code(s): G93.41 - Metabolic encephalopathy Status: Acute (11) Bradycardia: Code(s): R00.1 - Bradycardia, unspecified Status: Acute Plan 04/29/22 The patient presented to the ER with altered mental status and met sepsis criteria with fever, tachycardia, leukocytosis and confusion. Cultures obtained, he received appropriate fluid resuscitation and was started on Primaxin and Vanco. LP was attempted but was unsuccessful (he has severe spinal stenosis per family). CXR clear.? UA not consistent with UTI and UCx negative.Lactic acid level normal now. WBC down to 12K. Vanco stopped. Concern for GI source so CT A/P ordered showing GB edema and inflammatry chanes. RUQ ordered showing acute cholecystitis. He does not have any significnat pain in the RUQ but this has to be the most likely source. GenSurg consult.? Given acute decline 04/28, patient was urgently taken for percutaneous cholecystostomy tube placement.? Blood cultures growing Klebsiella, given high propensity of ESBL will maintain on ertapenem until sensitivities results.? Patient noted to go into AFib with RVR 04/28, now on amiodarone drip.? Cardiology following.? Likely secondary to acute sepsis.? Will defer to Cardiology regarding echocardiogram.? Patient now on therapeutic Lovenox Patient with altered mental status on admission.? [place] related to his fever and sepsis symptoms.? Fever has resolved.? Bacteremia currently being treated.? His confusion was much better yesterday but has worsened today. Related to worsening GB disease despite benign exam? Glucose normal. VS sable. Not felt related to medications that were missed. No hx of alcohol use. Related to Primaxin? Doubt meningitis since we have a more likely diagnosis. Continue to follow. Continue supportive care. Elevate HOB. NPO. Sitter. Patient has syncopal episode associated with falls.? Cervical spine CT showed no fracture dislocation.? CT the brain showed atherosclerosis with chronic small vessel ischemic changes but no acute findings.? Suspect the syncopal episode of falls were related to above. Hold PT and OT. Patient with elevated AST with normal ALT.? Given his falls and time on the ground, total CK was checked and was 2300.? He was started on IV fluids.? Renal function is stable. Total CK trending down. Follow Patient's blood pressure was reviewed on 04/28 Blood pressure remains well controlled.? Will continue to
--- NOTE | 2022-05-04 09:43 | PCNWS ---
Weekly nutritional screen. Patient is tolerating current diet with adequate intake. No weight loss reported. No nutritional needs at this time.
--- NOTE | 2022-05-04 11:29 | PC.NURSE ---
Melia Alicea [employer] notified of pt on tele after am meds given that heart rate dropped in 40'S on tele
--- NOTE | 2022-05-04 12:15 | PM.PNGS ---
Progress Note: A&P Assessment and Plan (1) Choledocholithiasis with acute cholecystitis: Code(s): K80.42 - Calculus of bile duct with acute cholecystitis without obstruction Status: Acute Assessment and Plan: discussed cholecystostomy tube injection with hospitalist, Dr. Olvera. with stones in distal common bile duct and history of sepsis with Klebsiella bacteremia, feel it is likely patient would benefit from ERCP. I consulted Dr. Coy. I discussed the patient with Dr. Coy as he was coming to see him in consultation. Still deliberating regarding cholecystectomy which would be optimal but with patient's Parkinson's and recent cardiac issues, not certain if he is a good candidate for this. (2) Bacteremia due to Klebsiella pneumoniae: Code(s): R78.81 - Bacteremia; B96.1 - Klebsiella pneumoniae [K. pneumoniae] as the cause of diseases classified elsewhere Status: Acute Assessment and Plan: Klebsiella also grew from bile cultures. Patient may have had cholangitis rather than cholecystitis. (3) Bradycardia: Code(s): R00.1 - Bradycardia, unspecified Status: Acute Assessment and Plan: Atrial fib converted to sinus on 05/02. Now having some Bradycardia. on amiodarone and metoprolol dose has been adjusted. (4) Parkinsons: Code(s): G20 - Parkinson's disease Status: Acute Assessment and Plan: Increases surgical risks. Subjective Subjective Date/Time Seen: 05/04/22 12:15 Post Op day: #6 Patient reports: no new complaints ( Still mostly fatigued.) and other ( Converted to sinus rhythm 2 days ago. Now has some bradycardia) Interval history: Cholecystostomy tube placed 04/28/2022. Patient had Klebsiella grow from the bile and also blood cultures were positive for Klebsiella. Review of Systems Review of Systems: All systems reviewed & are unremarkable except as noted in HPI and below ( HPI) Exam GI: Inspection: non-distended and other ( cholecystostomy tube in position, draining bile) GI Palp: Yes Soft to palpation and No Tenderness to palpation present (GI) Objective Data Vital Signs Vital Signs: Vital Signs - 24 hr 05/03/22 16:00 05/03/22 16:32 05/03/22 16:55 Temperature Pulse Rate 57 L 53 L 53 L Respiratory Rate Blood Pressure Pulse Oximetry Oxygen Delivery 05/03/22 17:00 05/03/22 19:42 05/03/22 20:00 Temperature 36.7 C 36.8 C Pulse Rate 60 107 H 66 Respiratory Rate 16 20 Blood Pressure 133/65 122/58 L Pulse Oximetry 99 95 Oxygen Delivery 05/04/22 00:00 05/04/22 00:00 05/04/22 03:46 Temperature 36.6 C 36.6 C Pulse Rate 65 55 L 59 L Respiratory Rate 16 16 Blood Pressure 137/57 L 152/76 H Pulse Oximetry 95 96 Oxygen Delivery 05/04/22 04:00 05/04/22 08:48 05/04/22 08:49 Temperature Pulse Rate 56 L 61 61 Respiratory Rate Blood Pressure Pulse Oximetry Oxygen Delivery 05/04/22 09:15 05/04/22 10:02 05/04/22 08:00 Temperature 36.7 C Pulse Rate 52 L 63 Respiratory Rate 16 Blood Pressure 131/58 L Pulse Oximetry 97 Oxygen Delivery Room Air Intake/Output Intake/Output: Intake & Output 05/01/22 05/02/22 05/03/22 05/04/22 23:59 23:59 23:59 23:59 Intake Total 1200 1380 840 370 Output Total 1200 800 850 410 Balance 0 580 -10 -40 Meds/Results Medications: Active Medications Generic Name Dose Route Start Last Admin Trade Name Freq PRN Reason Stop Dose Admin Acetaminophen 650 mg 04/26/22 02:43 04/29/22 11:55 Acetaminophen 325 Mg Tablet PO 650 mg Q4H PRN Administration Mild Pain (1-3) or Fever Amiodarone HCl 400 mg 05/01/22 17:00 05/04/22 08:48 Amiodarone Hcl 200 Mg Tablet PO 400 mg BID YINKA Administration Aspirin 81 mg 04/28/22 17:20 05/04/22 08:48 Aspirin 81 Mg Chewable Tablet PO 81 mg DAILY@0800 YINKA Administration Carbidopa/Levodopa 1 tablet 04/26/22 04:52 05/04/22 11:14 Carbi
[2022-05-04] MEDS: ERTAPENEM 1 GM/NS 50 ML 1 GM/50 ML BAG IVPB (13:57)
--- NOTE | 2022-05-04 14:21 | WPDGICN ---
Assessment and Plan Assessment and plan (1) Choledocholithiasis with acute cholecystitis: Code(s): K80.42 - Calculus of bile duct with acute cholecystitis without obstruction Status: Acute Assessment and Plan: on admission had bacteremia and sepsis with altered mental status this has been treated by IR with cholecystostomy tube and feeling better, also iv antibiotics surgery on board cholangiogram today showed small stones in bile duct will proceed with erd tomorrow with sphincterotomy and removal of stones hold lovenox prior procedure (2) Infection due to extended-spectrum dlmh-khmigmfoq-wcwjrylie Klebsiella oxytoca: Code(s): A49.8 - Other bacterial infections of unspecified site; Z16.12 - Extended spectrum beta lactamase (ESBL) resistance Status: Acute Assessment and Plan: GB/biliary related improving (3) Atrial fibrillation with RVR: Code(s): I48.91 - Unspecified atrial fibrillation Status: Acute Assessment and Plan: treated by cardiology (4) Metabolic encephalopathy: Code(s): G93.41 - Metabolic encephalopathy Status: Acute Assessment and Plan: due to sepsis resolved and better (5) Syncope: Code(s): R55 - Syncope and collapse Status: Acute (6) Sepsis: Qualifiers: Sepsis acute organ dysfunction status: with acute organ dysfunction Sepsis type: sepsis due to unspecified organism Severe sepsis acute organ dysfunction type: encephalopathy Severe sepsis shock status: without septic shock Qualified Code(s): A41.9 - Sepsis, unspecified organism; R65.20 - Severe sepsis without septic shock; G93.40 - Encephalopathy, unspecified Code(s): A41.9 - Sepsis, unspecified organism Status: Acute Assessment and Plan: on admission GI Consult Note Consult date/time: 05/04/22 14:21 Reason for consult: sepsis with bacteremia due to cholangitis and choledocholithiasis HPI: Bernard Cristobal is a 71 year old male with history of Parkinson's disease, hypertension, and anxiety who was admitted on 04/26/22 after had multiple falls due to acute onset of altered mental status.?He was found to have fever and encephalopathy, had sepsis with bacteremia Klebsiella oxytoca (also from bile after cholecystostomy tube), source cholangitis. He also had acute onset of atrial fibrillation with RVR in the setting of of sepsis, treated with intravenous amiodarone and lovenox for anticoagulation for which cardiology is on board. He underwent cholecystostomy tube placement 04/28/2022, on arrival had elevated bili 3 back down to normal, CT scan confirmed finding of cholecystitis and surgery team has been on board. Finally a cholangiogram showed?multiple filling defects in the cystic duct and the distal common bile duct, consistent with stones. Daughter is at bedside, patient is feeling better and comfortable.? Review of Systems Constitutional: Constitutional: Reports chills Eyes: Eyes: Denies blurry vision ENT: Reports Normal hearing present Cardiovascular: Cardiovascular: Reports palpitations Respiratory: Respiratory: Denies cough Gastrointestinal: Gastrointestinal: Reports abdominal pain Genitourinary: Genitourinary: Denies hematuria Musculoskeletal: Musculoskeletal: Denies joint swelling Neurologic: Comments: confusion on admission- resolved Psychiatric: Psychiatric: Reports behavioral changes [facility] Past Medical History Medical History (Updated 05/04/22 @ 14:30 by Felton Morris MD) Anxiety Hypertension Infection due to extended-spectrum [id number]-tmubeeaxi Klebsiella oxytoca Neuropathy Parkinsons Surgical History Surgical History History of lumbar surgery Family History Family History Father Throat cancer Hypertension Heart problem Sibling Mother Heart valve replaced
[2022-05-05] VITALS (19 sets, daily range): BP systolic 131–159; BP diastolic 63–113; PULSE 45–63; RESP 16–23; TEMP 36.4–37.3; O2SAT 94–100
[2022-05-05 06:12] LABS: Basophils Percent Auto 0.4 % (0.2-1.2); Eosinophils Absolute Auto 0.1 K/mm3 (0-0.3); Hematocrit 30.1 % (42.0-52.0); Hemoglobin 9.6 g/dL (14.0-18.0); Immature Granulocyte Absolute 0.22 K/mm3 (0.00-0.031); Immature Granulocyte Percent A 2.5 % (0-0.5); Lymphocytes Absolute Auto 0.95 K/mm3 (0.9-3.2); Lymphocytes Percent Auto 10.6 % (18.3-44.2); Mean Corpuscular HGB Conc 31.9 g/dl (32-36); Mean Corpuscular Hemoglobin 31.3 pg (26-34); Mean Platelet Volume 11.6 fl (7.4-10.4); Monocytes Absolute Auto 0.6 K/mm3 (0.1-0.6); Monocytes Percent Auto 6.8 % (2.6-8.5); Neutrophils Absolute Auto 7.1 K/mm3 (1.3-6.7); Neutrophils Percent Auto 78.7 % (45.5-73.1); Platelet Count Result 231 k/mm3 (150-375); Red Blood Count 3.07 M/mm3 (4.6-6.20); Red Cell Distribution Width 14.2 % (11.5-14.5)
[2022-05-05 06:27] LABS: Anion Gap 6 mmol/L (8-16); Blood Urea Nitrogen 21 mg/dL (9-20); Calcium 7.9 mg/dL (8.4-10.2); Carbon Dioxide 27 mmol/L (22-30); Chloride 101 mmol/L (98-107); Estimated CRCL calculation 84 ml/min; Estimated Glomerular Filt Rate > 60; Glucose 91 mg/dL (65-110); Potassium 3.5 mmol/L (3.4-5.0); Sodium 134 mmol/L (137-145)
--- NOTE | 2022-05-05 06:50 | PM.PNGS ---
Progress Note: A&P Assessment and Plan (1) Choledocholithiasis with acute cholecystitis: Code(s): K80.42 - Calculus of bile duct with acute cholecystitis without obstruction Status: Acute Assessment and Plan: ERCP planned for today per Dr. Coy. Will see how patient tolerates this procedure. (2) Infection due to extended-spectrum uguw-vzqnljvoe-uayiymqmz Klebsiella oxytoca: Code(s): A49.8 - Other bacterial infections of unspecified site; Z16.12 - Extended spectrum beta lactamase (ESBL) resistance Status: Acute Assessment and Plan: Grown in both bile and blood cultures. (3) Bradycardia: Code(s): R00.1 - Bradycardia, unspecified Status: Acute Assessment and Plan: Heart rate upper for use lower 50s through the night. (4) Parkinsons: Code(s): G20 - Parkinson's disease Status: Acute Assessment and Plan: Increases surgical risks. Subjective Subjective Date/Time Seen: 05/05/22 06:50 Patient reports: no new complaints, pain is less (No abdominal pain) and afebrile Interval history: To have ERCP today Review of Systems Review of Systems: All systems reviewed & are unremarkable except as noted in HPI and below (HPI) Exam Const: General: comfortable and awake Limitations: physical limitations GI: Inspection: non-distended and incision (Biliary tube draining bile) GI Palp: Yes Soft to palpation, No Tenderness to palpation present (GI) and No Guarding due to palpation present (GI) Objective Data Vital Signs Vital Signs: Vital Signs - 24 hr 05/04/22 08:48 05/04/22 08:49 05/04/22 09:15 Temperature Pulse Rate 61 61 Respiratory Rate Blood Pressure Pulse Oximetry Oxygen Delivery Room Air 05/04/22 10:02 05/04/22 08:00 05/04/22 12:00 Temperature 36.7 C Pulse Rate 52 L 63 53 L Respiratory Rate 16 Blood Pressure 131/58 L Pulse Oximetry 97 Oxygen Delivery 05/04/22 13:56 05/04/22 16:00 05/04/22 17:11 Temperature 36.5 C Pulse Rate 96 52 L 56 L Respiratory Rate 18 Blood Pressure 136/63 Pulse Oximetry 99 Oxygen Delivery 05/04/22 22:09 05/04/22 20:00 05/04/22 20:00 Temperature 36.6 C Pulse Rate 48 L 48 L 47 L Respiratory Rate 18 18 Blood Pressure 155/68 H Pulse Oximetry 96 96 Oxygen Delivery Room Air 05/05/22 00:00 05/05/22 04:00 05/05/22 06:30 Temperature 36.4 C L Pulse Rate 51 L 45 L 48 L Respiratory Rate 16 Blood Pressure 145/67 H Pulse Oximetry 94 Oxygen Delivery Intake/Output Intake/Output: Intake & Output 05/02/22 05/03/22 05/04/22 05/05/22 23:59 23:59 23:59 23:59 Intake Total 1380 890 960 Output Total 876 508 0958 Balance 580 40 -135 Meds/Results Medications: Active Medications Generic Name Dose Route Start Last Admin Trade Name Freq PRN Reason Stop Dose Admin Acetaminophen 650 mg 04/26/22 02:43 04/29/22 11:55 Acetaminophen 325 Mg Tablet PO 650 mg Q4H PRN Administration Mild Pain (1-3) or Fever Amiodarone HCl 400 mg 05/01/22 17:00 05/04/22 17:11 Amiodarone Hcl 200 Mg Tablet PO 400 mg BID YINKA Administration Aspirin 81 mg 04/28/22 17:20 05/04/22 08:48 Aspirin 81 Mg Chewable Tablet PO 81 mg DAILY@0800 YINKA Administration Carbidopa/Levodopa 1 tablet 04/26/22 04:52 05/04/22 23:23 Carbidopa/Levodopa 25/250 Mg Tablet PO 1 tablet Q4H PRN Administration parkinson tremors Enoxaparin Sodium 90 mg 04/29/22 11:30 05/04/22 21:08 Enoxaparin 100 Mg/Ml Syringe SUB-Q 90 mg Q12HR YINKA Administration Ibuprofen 400 mg/ Sodium 104 mls @ 208 mls/hr 04/28/22 17:10 Chloride IVPB Q6H PRN Pain Rated 4-6 o fever Ertapenem 1 gm in 50 mls @ 100 mls/hr 04/29/22 14:00 05/04/22 14:30 Invanz 1 Gm/Ns 50 Ml IVPB 05/05/22 14:01 Infused Q24H YINKA Infusion Lisinopril 20 mg 05/05/22 09:00 Lisinopril 20 Mg Tablet PO DAILY [facility] Metoprolol Tartrate 5 mg 04/20
--- NOTE | 2022-05-05 09:41 | PM.PNCARD ---
Progress Note: A&P Assessment and Plan (1) Atrial fibrillation with RVR: Code(s): I48.91 - Unspecified atrial fibrillation Status: Acute Assessment and Plan: Acute onset of atrial fibrillation with RVR in the setting of cholecystitis. He has been back in sinus rhythm for several days Will reduce amiodarone to 200mg daily. Continue metoprolol 25mg b.i.d. May hold if heart rate less than 60 beats per minute. Lovenox currently on hold because of recent sphincterotomy. Per GI to hold for 3 more days. (2) Bradycardia: Code(s): R00.1 - Bradycardia, unspecified Status: Acute Assessment and Plan: Asymptomatic, noted upon conversion to sinus rhythm on amiodarone and metoprolol. (3) Cholelithiasis and acute cholecystitis with obstruction: Code(s): K80.01 - Calculus of gallbladder with acute cholecystitis with obstruction Status: Acute Assessment and Plan: Per surgical service. Status post percutaneous cholecystostomy tube. ERCP today. (4) Sepsis: Qualifiers: Sepsis acute organ dysfunction status: with acute organ dysfunction Sepsis type: sepsis due to unspecified organism Severe sepsis acute organ dysfunction type: encephalopathy Severe sepsis shock status: without septic shock Qualified Code(s): A41.9 - Sepsis, unspecified organism; R65.20 - Severe sepsis without septic shock; G93.40 - Encephalopathy, unspecified Code(s): A41.9 - Sepsis, unspecified organism Status: Acute Assessment and Plan: Klebsiella bacteremia. Repeat cultures negative, remains on antibiotics. Management per primary service and surgery. Hemodynamically stable, tolerating lisinopril. Discontinue if relative hypotension. Subjective Date/time seen: 05/05/22 09:41 Interval history: This is a 71-year-old man with: Acute onset of atrial fibrillation with RVR in the setting of acute cholecystitis with picture of sepsis. Patient has been placed on intravenous amiodarone and is receiving intravenous metoprolol for rate control. Feels much better today but still in atrial fib with heart rate between 100-120. 04/30/2022: Remains on IV amiodarone with heart rate 100-120. He is feeling okay with this, does not feel any palpitations, shortness of breath, or chest pain. 05/01/2022: Feels about the same today. No complaints of any kind today. He remains in atrial fibrillation. 05/02/2022 patient feels beat up he states. Fatigue. Denies palpitations, chest pain or shortness of breath. Some abdominal discomfort. Remains in AFib with RVR on telemetry. Heart rate generally 100s to 120s Date of service 05/03/2022: Feels little better. Converted to sinus rhythm yesterday afternoon. Bradycardic with heart rates in the 50s to 60s at times. Beta-nelida held last night and this morning due to bradycardia. Patient denies chest pain, palpitations or shortness of breath. Pain is under control. States he has had 2 bowel movements. Date of service 05/04/2022: Very fatigued this morning but no other complaints. Remains in sinus rhythm/sinus bradycardia. No chest pain, shortness of breath, palpitations. Date of service 05/05/2022: Feels ok today, does not have any complaints. Had ERCP earlier today. On telemetry remains in sinus rhythm/sinus rick. Review of Systems Review of Systems: ROS unobtainable: Yes unobtainable due to mental status (Pt is delerious and can not give a good hx.) Constitutional: Constitutional: Denies chills (fevers) Eyes: Eyes: Reports no additional eye complaints ENT: Denies epistaxis Cardiovascular: Cardiovascular: Reports chest pain (a little tightness) and Denies dyspnea Respiratory: Respiratory: Denies chest congestion, Denies cough and Denies dyspnea Gastrointestinal: Gastrointestinal: Denies abdominal pain, Denies hematochezia and Denies heartburn Genitourinary: Genitourinary: Denies hematuria Musculoskeletal: Musculoskeleta
[2022-05-05] MEDS: ASPIRIN 81 MG CHEWABLE TABLET PO (10:01)
[2022-05-05] MEDS: lisinopriL 20 MG TABLET PO (10:01)
[2022-05-05] MEDS: METOPROLOL TARTRATE 25 MG TABLET PO (10:02)
[2022-05-05] MEDS: AMIODARONE HCL 200 MG TABLET 400 MG PO (10:03)
[2022-05-05] MEDS: PANTOPRAZOLE SODIUM IV 40 MG VIAL IV PUSH ×2 (10:04→20:39)
[2022-05-05] MEDS: LACTATED RINGERS 1,000 ML 150 ML IV CONT (10:51)
--- NOTE | 2022-05-05 11:01 | WPDANESEPPF ---
Anes - Initial Pre Proc Eval Procedure: Operation Date: 05/05/22 11:45 Proposed Procedures p Endoscopic Retro Cholangiopancreatogram - Felton Morris MD Date/Time: 05/05/22 11:01 Surgeon: Sharon Shane DO Pre Op Diagnosis: Sepsis Patient Data Age: 71 Gender: M Height: 1.83 m Weight: 100.4 kg Last Vital Signs Temp 98 F 05/05/22 10:42 Pulse 55 L 05/05/22 10:42 Resp 18 05/05/22 10:42 BP 156/64 H 05/05/22 10:42 Pulse Ox 98 05/05/22 10:42 O2 Del Method Room Air 05/05/22 10:42 O2 Flow Rate 2 04/29/22 04:00 Allergies Allergy/AdvReac Type Severity Reaction Status Date / Time No Known Allergies Allergy Verified 05/05/22 10:37 Home Medications Medication Instructions Recorded Confirmed Type carbidopa 25 mg-levodopa 250 mg 1 - 2 tablet PO PRN PRN parkinson 04/26/22 04/26/22 History tablet escitalopram oxalate 20 mg tablet 20 mg PO DAILY 04/26/22 04/26/22 History lisinopril 40 mg tablet 40 mg PO DAILY 04/26/22 04/26/22 History pramipexole 0.25 mg tablet 0.25 mg PO PRN PRN parkinsons 04/26/22 04/26/22 History Laboratory Tests 05/05/22 05/05/22 05:14 05:14 WBC 9.0 K/mm3 K/mm3 (4.5-10.0) RBC 3.07 M/mm3 L M/mm3 (4.6-6.20) Hgb 9.6 g/dL L g/dL (14.0-18.0) Hct 30.1 % L % (42.0-52.0) MCV 98.0 fl fl (80-100) MCH 31.3 pg pg (26-34) MCHC 31.9 g/dl L g/dl (32-36) RDW 14.2 % % (11.5-14.5) Plt Count 231 k/mm3 k/mm3 (150-375) MPV 11.6 fl H fl (7.4-10.4) Immature Gran % (Auto) 2.5 % H % (0-0.5) Neut % (Auto) 78.7 % H % (45.5-73.1) Lymph % (Auto) 10.6 % L % (18.3-44.2) [place] % (Auto) 6.8 % % (2.6-8.5) Eos % (Auto) 1.0 % % (0-4.4) Baso % (Auto) 0.4 % % (0.2-1.2) Lymph # (Auto) 0.95 K/mm3 K/mm3 (0.9-3.2) [place] # (Auto) 0.6 K/mm3 K/mm3 (0.1-0.6) Eos # (Auto) 0.1 K/mm3 K/mm3 (0-0.3) Baso # (Auto) 0.0 K/mm3 K/mm3 (0.0-0.1) Abs Immat Gran (auto) 0.22 K/mm3 H K/mm3 (0.00-0.031) Absolute Neuts (auto) 7.1 K/mm3 H K/mm3 (1.3-6.7) Absolute Nucleated RBC 0.0 K/mm3 K/mm3 (0.0-0.012) Nucleated RBC % 0.0 % % (0.0-0.2) Sodium 134 mmol/L L mmol/L (137-145) Potassium 3.5 mmol/L mmol/L (3.4-5.0) Chloride 101 mmol/L mmol/L (98-107) Carbon Dioxide 27 mmol/L mmol/L (22-30) Anion Gap 6 mmol/L L mmol/L (8-16) BUN 21 mg/dL H mg/dL (9-20) Creatinine 0.90 mg/dL mg/dL (0.7-1.3) Estim Creat Clear Calc 84 ml/min ml/min Estimated GFR > 60 (59 - ) Glucose 91 mg/dL mg/dL (65-110) Calcium 7.9 mg/dL L mg/dL (8.4-10.2) Patient hx anesthesia problems: none Family hx anesthesia problems: none Results Review: All pre-operative results and documents have been reviewed as part of the pre-operative evaluation. FORMERLY [facility] Past Medical History Medical History (Updated 05/04/22 @ 14:30 by Felton Morris MD) Anxiety Hypertension Infection due to extended-spectrum hwwy-rudggctmo-sjvacjask Klebsiella oxytoca Neuropathy Parkinsons Surgical History Surgical History History of lumbar surgery Family History Family History Father Throat cancer Hypertension Heart problem Sibling Mother Heart valve replaced Heart valve problem Social History Social History Social History: Patient denies any history of tobacco alcohol or illicit substance use. He lives with his girlfriend of 7 years. He uses a lift chair at home and ambulates with a walker. Surrogate decision maker: Daughter Smoking status: Never smoker Second hand tobacco smoke exposure: No Alcohol intake: former Spiritual care concerns: No A
--- NOTE | 2022-05-05 11:01 | PCPTNOTE ---
Attempted to see patient 2 times this morning. First time OT was working with patient and second time patient was out of room for procedure.
--- NOTE | 2022-05-05 11:59 | PM.IMPN ---
Progress Note: A&P Assessment and Plan (1) Cholelithiasis and acute cholecystitis with obstruction: Code(s): K80.01 - Calculus of gallbladder with acute cholecystitis with obstruction Status: Acute (2) Abnormal LFTs: Code(s): R79.89 - Other specified abnormal findings of blood chemistry Status: Acute (3) Atrial fibrillation with RVR: Code(s): I48.91 - Unspecified atrial fibrillation Status: Acute (4) Sepsis: Qualifiers: Sepsis acute organ dysfunction status: with acute organ dysfunction Sepsis type: sepsis due to unspecified organism Severe sepsis acute organ dysfunction type: encephalopathy Severe sepsis shock status: without septic shock Qualified Code(s): A41.9 - Sepsis, unspecified organism; R65.20 - Severe sepsis without septic shock; G93.40 - Encephalopathy, unspecified Code(s): A41.9 - Sepsis, unspecified organism Status: Acute (5) Parkinsons: Code(s): G20 - Parkinson's disease Status: Acute (6) Rhabdomyolysis: Code(s): M62.82 - Rhabdomyolysis Status: Acute (7) Bacteremia due to Klebsiella pneumoniae: Code(s): R78.81 - Bacteremia; B96.1 - Klebsiella pneumoniae [K. pneumoniae] as the cause of diseases classified elsewhere Status: Acute (8) Cholecystostomy care: Code(s): Z43.4 - Encounter for attention to other artificial openings of digestive tract Status: Acute (9) Hypertension: Code(s): I10 - Essential (primary) hypertension Status: Acute (10) Metabolic encephalopathy: Code(s): G93.41 - Metabolic encephalopathy Status: Acute (11) Bradycardia: Code(s): R00.1 - Bradycardia, unspecified Status: Acute (12) Infection due to extended-spectrum ngqw-snbilbgya-ztjmjckaw Klebsiella oxytoca: Code(s): A49.8 - Other bacterial infections of unspecified site; Z16.12 - Extended spectrum beta lactamase (ESBL) resistance Status: Acute (13) Choledocholithiasis with acute cholecystitis: Code(s): K80.42 - Calculus of bile duct with acute cholecystitis without obstruction Status: Acute Plan 04/29/22 The patient presented to the ER with altered mental status and met sepsis criteria with fever, tachycardia, leukocytosis and confusion. Cultures obtained, he received appropriate fluid resuscitation and was started on Primaxin and Vanco. LP was attempted but was unsuccessful (he has severe spinal stenosis per family). CXR clear.? UA not consistent with UTI and UCx negative.Lactic acid level normal now. WBC down to 12K. Vanco stopped. Concern for GI source so CT A/P ordered showing GB edema and inflammatry chanes. RUQ ordered showing acute cholecystitis. He does not have any significnat pain in the RUQ but this has to be the most likely source. GenSurg consult.? Given acute decline 04/28, patient was urgently taken for percutaneous cholecystostomy tube placement.? Blood cultures growing Klebsiella, given high propensity of ESBL will maintain on ertapenem until sensitivities results.? Patient noted to go into AFib with RVR 04/28, now on amiodarone drip.? Cardiology following.? Likely secondary to acute sepsis.? Will defer to Cardiology regarding echocardiogram.? Patient now on therapeutic Lovenox Patient with altered mental status on admission.? [place] related to his fever and sepsis symptoms.? Fever has resolved.? Bacteremia currently being treated.? His confusion was much better yesterday but has worsened today. Related to worsening GB disease despite benign exam? Glucose normal. VS sable. Not felt related to medications that were missed. No hx of alcohol use. Related to Primaxin? Doubt meningitis since we have a more likely diagnosis. Continue to follow. Continue supportive care. Elevate HOB. NPO. Sitter. Patient has syncopal episode associated with falls.? Cervical spine CT showed no fracture dislocation.? CT the brain showed atherosclerosis with chronic small vessel ischemic changes but no a
[2022-05-05] MEDS: CARBIDOPA/LEVODOPA 25/250 MG TABLET 1 TABLET PO ×2 (14:02→18:13)
[2022-05-06] VITALS (22 sets, daily range): BP systolic 123–162; BP diastolic 60–79; PULSE 44–95; RESP 12–22; TEMP 36.3–37.6; O2SAT 91–99
[2022-05-06] MEDS: CARBIDOPA/LEVODOPA 25/250 MG TABLET 1 TABLET PO ×2 (03:08→06:53)
[2022-05-06 06:04] LABS: Basophils Percent Auto 0.2 % (0.2-1.2); Eosinophils Percent Auto 0.2 % (0-4.4); Hematocrit 32.6 % (42.0-52.0); Hemoglobin 10.6 g/dL (14.0-18.0); Immature Granulocyte Absolute 0.15 K/mm3 (0.00-0.031); Immature Granulocyte Percent A 1.4 % (0-0.5); Lymphocytes Absolute Auto 0.69 K/mm3 (0.9-3.2); Lymphocytes Percent Auto 6.5 % (18.3-44.2); Mean Corpuscular HGB Conc 32.5 g/dl (32-36); Mean Corpuscular Hemoglobin 31.4 pg (26-34); Mean Corpuscular Volume 96.4 fl (80-100); Mean Platelet Volume 11.4 fl (7.4-10.4); Monocytes Absolute Auto 0.5 K/mm3 (0.1-0.6); Monocytes Percent Auto 4.2 % (2.6-8.5); Neutrophils Absolute Auto 9.3 K/mm3 (1.3-6.7); Neutrophils Percent Auto 87.5 % (45.5-73.1); Platelet Count Result 282 k/mm3 (150-375); Red Blood Count 3.38 M/mm3 (4.6-6.20); Red Cell Distribution Width 13.9 % (11.5-14.5); White Blood Count 10.6 K/mm3 (4.5-10.0)
[2022-05-06 06:22] LABS: Alanine Aminotransferase 7 U/L (6-50); Alkaline Phosphatase 128 U/L (38-126); Anion Gap 5 mmol/L (8-16); Aspartate Amino Transferase 27 U/L (17-59); Bilirubin,Total 0.9 mg/dL (0.2-1.3); Blood Urea Nitrogen 17 mg/dL (9-20); Calcium 8.4 mg/dL (8.4-10.2); Carbon Dioxide 28 mmol/L (22-30); Chloride 101 mmol/L (98-107); Estimated CRCL calculation 74 ml/min; Estimated Glomerular Filt Rate > 60; Glucose 110 mg/dL (65-110); Magnesium 2.3 mg/dL (1.6-2.3); Potassium 3.8 mmol/L (3.4-5.0); Sodium 134 mmol/L (137-145)
[2022-05-06] MEDS: PANTOPRAZOLE SODIUM IV 40 MG VIAL IV PUSH (08:54)
[2022-05-06] MEDS: lisinopriL 20 MG TABLET PO (08:56)
[2022-05-06] MEDS: AMIODARONE HCL 200 MG TABLET PO (08:56)
[2022-05-06] MEDS: cefTRIAXone 2 GM in SODIUM CHLORIDE 0.9% IV 100 ML 200 ML IVPB (08:57)
--- NOTE | 2022-05-06 09:16 | PM.PNCARD ---
Progress Note: A&P Assessment and Plan (1) Atrial fibrillation with RVR: Code(s): I48.91 - Unspecified atrial fibrillation Status: Acute Assessment and Plan: Acute onset of atrial fibrillation with RVR in the setting of cholecystitis. He has been back in sinus rhythm for several days Continue amiodarone for now. This should be for a brief period time perioperatively. Continue metoprolol 25mg b.i.d. May hold if heart rate less than 60 beats per minute. Hold anticoagulation (2) Bradycardia: Code(s): R00.1 - Bradycardia, unspecified Status: Acute Assessment and Plan: Asymptomatic, noted upon conversion to sinus rhythm on amiodarone and metoprolol. (3) Cholelithiasis and acute cholecystitis with obstruction: Code(s): K80.01 - Calculus of gallbladder with acute cholecystitis with obstruction Status: Acute Assessment and Plan: Per surgical service. Status post percutaneous cholecystostomy tube. (4) Sepsis: Qualifiers: Sepsis acute organ dysfunction status: with acute organ dysfunction Sepsis type: sepsis due to unspecified organism Severe sepsis acute organ dysfunction type: encephalopathy Severe sepsis shock status: without septic shock Qualified Code(s): A41.9 - Sepsis, unspecified organism; R65.20 - Severe sepsis without septic shock; G93.40 - Encephalopathy, unspecified Code(s): A41.9 - Sepsis, unspecified organism Status: Acute Assessment and Plan: Klebsiella bacteremia. Repeat cultures negative, remains on antibiotics. Management per primary service and surgery. Hemodynamically stable, tolerating lisinopril. Discontinue if relative hypotension. Subjective Date/time seen: 05/06/22 09:16 Interval history: This is a 71-year-old man with: Acute onset of atrial fibrillation with RVR in the setting of acute cholecystitis with picture of sepsis. Patient has been placed on intravenous amiodarone and is receiving intravenous metoprolol for rate control. Feels much better today but still in atrial fib with heart rate between 100-120. 04/30/2022: Remains on IV amiodarone with heart rate 100-120. He is feeling okay with this, does not feel any palpitations, shortness of breath, or chest pain. 05/01/2022: Feels about the same today. No complaints of any kind today. He remains in atrial fibrillation. 05/02/2022 patient feels beat up he states. Fatigue. Denies palpitations, chest pain or shortness of breath. Some abdominal discomfort. Remains in AFib with RVR on telemetry. Heart rate generally 100s to 120s Date of service 05/03/2022: Feels little better. Converted to sinus rhythm yesterday afternoon. Bradycardic with heart rates in the 50s to 60s at times. Beta-nelida held last night and this morning due to bradycardia. Patient denies chest pain, palpitations or shortness of breath. Pain is under control. States he has had 2 bowel movements. Date of service 05/04/2022: Very fatigued this morning but no other complaints. Remains in sinus rhythm/sinus bradycardia. No chest pain, shortness of breath, palpitations. Date of service 05/05/2022: Feels ok today, does not have any complaints. Had ERCP earlier today. On telemetry remains in sinus rhythm/sinus rick. Date of service 05/06/2022: Doing okay. Probably going to surgery today per patient. No chest pain or shortness of breath. Rhythm is stable. Review of Systems Review of Systems: All systems reviewed & are unremarkable except as noted in HPI and below Constitutional: Constitutional: Denies chills (fevers) Eyes: Eyes: Reports no additional eye complaints ENT: Denies epistaxis Cardiovascular: Cardiovascular: Reports chest pain (a little tightness) and Denies dyspnea Respiratory: Respiratory: Denies chest congestion, Denies cough and Denies dyspnea Gastrointestinal: Gastrointestinal: Denies abdominal pain, Denies hematochezia and Denies heartburn Ge
[2022-05-06 09:29] LABS: Lipase 143 U/L (23-300)
--- NOTE | 2022-05-06 09:57 | WPDANESPN ---
Anes - Prog Note Post-Op Date/Time: 05/06/22 09:57 Cardiovascular status: normal Respiratory status: normal Airway patency: baseline Mental status: baseline Post-Op hydration status: normal Vital Signs: Last Vital Signs Temp 36.3 C L 05/06/22 06:53 Pulse 60 05/06/22 08:56 Resp 16 05/06/22 06:53 BP 162/66 H 05/06/22 06:53 Pulse Ox 94 05/06/22 06:53 O2 Del Method Room Air 05/05/22 20:00 O2 Flow Rate 8 05/05/22 12:59 Pain Score (VAS): 0 I/O: Intake & Output 05/05/22 05/06/22 05/06/22 23:59 07:59 15:59 Intake Total 780 Output Total 785 560 Balance -5 -560 Laboratory Tests 05/06/22 05:27 05/06/22 05:27 05/06/22 05/06/22 05/06/22 05:27 05:27 08:57 WBC 10.6 H RBC 3.38 L Hgb 10.6 L Hct 32.6 L MCV 96.4 MCH 31.4 MCHC 32.5 RDW 13.9 Plt Count 282 MPV 11.4 H Immature Gran % (Auto) 1.4 H Neut % (Auto) 87.5 H Lymph % (Auto) 6.5 L [place] % (Auto) 4.2 Eos % (Auto) 0.2 Baso % (Auto) 0.2 Lymph # (Auto) 0.69 L [place] # (Auto) 0.5 Eos # (Auto) 0.0 Baso # (Auto) 0.0 Abs Immat Gran (auto) 0.15 H Absolute Neuts (auto) 9.3 H Absolute Nucleated RBC 0.0 Nucleated RBC % 0.0 Sodium 134 L Potassium 3.8 Chloride 101 Carbon Dioxide 28 Anion Gap 5 L BUN 17 Creatinine 0.90 Estim Creat Clear Calc 74 Estimated GFR > 60 Glucose 110 Calcium 8.4 Magnesium 2.3 Total Bilirubin 0.9 AST 27 ALT 7 Alkaline Phosphatase 128 H Total Protein 6.0 L Albumin 3.0 L Lipase 143 Post-procedural complaints: none Patient Feedback: Patient satisfied with anesthetic care.
--- NOTE | 2022-05-06 10:15 | PC.NURSE ---
Patient left the floor to go down to surgery.
--- NOTE | 2022-05-06 10:16 | PCOTNOTE ---
Attempted to see pt for Occupational therapy tx, however, pt is not available due to being prepped for upcoming gallbladder surgery. Will continue per poc duration/frequency tomorrow.
--- NOTE | 2022-05-06 10:55 | WPDANESEPPF ---
Anes - Initial Pre Proc Eval Procedure: Operation Date: 05/05/22 11:45 Proposed Procedures p Endoscopic Retro Cholangiopancreatogram - Felton Morris MD Operation Date: 05/06/22 14:00 Proposed Procedures p Laparoscopic Cholecystectomy, Possible Open - Chance Ohara MD Date/Time: 05/06/22 10:55 Surgeon: Kristofer Stanton MD Pre Op Diagnosis: Sepsis Patient Data Age: 71 Gender: M Height: 1.83 m Weight: 99.8 kg Last Vital Signs Temp 36.3 C L 05/06/22 06:53 Pulse 60 05/06/22 10:27 Resp 16 05/06/22 06:53 BP 162/66 H 05/06/22 06:53 Pulse Ox 94 05/06/22 06:53 O2 Del Method Room Air 05/05/22 20:00 O2 Flow Rate 8 05/05/22 12:59 Allergies Allergy/AdvReac Type Severity Reaction Status Date / Time No Known Allergies Allergy Verified 05/05/22 10:37 Home Medications Medication Instructions Recorded Confirmed Type carbidopa 25 mg-levodopa 250 mg 1 - 2 tablet PO PRN PRN parkinson 04/26/22 04/26/22 History tablet escitalopram oxalate 20 mg tablet 20 mg PO DAILY 04/26/22 04/26/22 History lisinopril 40 mg tablet 40 mg PO DAILY 04/26/22 04/26/22 History pramipexole 0.25 mg tablet 0.25 mg PO PRN PRN parkinsons 04/26/22 04/26/22 History Laboratory Tests 05/06/22 05/06/22 05/06/22 05:27 05:27 08:57 WBC 10.6 K/mm3 H K/mm3 (4.5-10.0) RBC 3.38 M/mm3 L M/mm3 (4.6-6.20) Hgb 10.6 g/dL L g/dL (14.0-18.0) Hct 32.6 % L % (42.0-52.0) MCV 96.4 fl fl (80-100) MCH 31.4 pg pg (26-34) MCHC 32.5 g/dl g/dl (32-36) RDW 13.9 % % (11.5-14.5) Plt Count 282 k/mm3 k/mm3 (150-375) MPV 11.4 fl H fl (7.4-10.4) Immature Gran % (Auto) 1.4 % H % (0-0.5) Neut % (Auto) 87.5 % H % (45.5-73.1) Lymph % (Auto) 6.5 % L % (18.3-44.2) [place] % (Auto) 4.2 % % (2.6-8.5) Eos % (Auto) 0.2 % % (0-4.4) Baso % (Auto) 0.2 % % (0.2-1.2) Lymph # (Auto) 0.69 K/mm3 L K/mm3 (0.9-3.2) [place] # (Auto) 0.5 K/mm3 K/mm3 (0.1-0.6) Eos # (Auto) 0.0 K/mm3 K/mm3 (0-0.3) Baso # (Auto) 0.0 K/mm3 K/mm3 (0.0-0.1) Abs Immat Gran (auto) 0.15 K/mm3 H K/mm3 (0.00-0.031) Absolute Neuts (auto) 9.3 K/mm3 H K/mm3 (1.3-6.7) Absolute Nucleated RBC 0.0 K/mm3 K/mm3 (0.0-0.012) Nucleated RBC % 0.0 % % (0.0-0.2) Sodium 134 mmol/L L mmol/L (137-145) Potassium 3.8 mmol/L mmol/L (3.4-5.0) Chloride 101 mmol/L mmol/L (98-107) Carbon Dioxide 28 mmol/L mmol/L (22-30) Anion Gap 5 mmol/L L mmol/L (8-16) BUN 17 mg/dL mg/dL (9-20) Creatinine 0.90 mg/dL mg/dL (0.7-1.3) Estim Creat Clear Calc 74 ml/min ml/min Estimated GFR > 60 (59 - ) Glucose 110 mg/dL mg/dL (65-110) Calcium 8.4 mg/dL mg/dL (8.4-10.2) Magnesium 2.3 mg/dL mg/dL (1.6-2.3) Total Bilirubin 0.9 mg/dL mg/dL (0.2-1.3) AST 27 U/L U/L (17-59) ALT 7 U/L U/L (6-50) Alkaline Phosphatase 128 U/L H U/L (38-126) Total Protein 6.0 g/dL L g/dL (6.3-8.2) Albumin 3.0 g/dL L g/dL (3.5-5.1) Lipase 143 U/L U/L (23-300) Blood Type Antibody Screen 05/06/22 08:57 WBC RBC Hgb Hct MCV MCH MCHC RDW Plt Count MPV Immature Gran % (Auto) Neut % (Auto) Lymph % (Auto) [place] % (Auto) Eos % (Auto) Baso % (Auto) Lymph # (Auto) [place] # (Auto) Eos # (Auto) Baso # (Auto) Abs Immat Gran (auto) Absolute Neuts (auto) Absolute Nucleated RBC Nucleated RBC % Sodium Potassium Chloride Carbon Dioxide Anion Gap BUN
[2022-05-06] MEDS: LACTATED RINGERS 1,000 ML 30 ML IV CONT ×2 (11:00→13:08)
--- NOTE | 2022-05-06 11:02 | WPDHPUPDATE1 ---
History and Physical Update Update Date/Time: 05/06/22 11:02 History and Physical has been reviewed, including an updated exam of the patient. There are NO changes in the patient's condition. Risks, benefits, and alternatives have been discussed and questions answered. Patient agrees to proceed with procedure.
--- NOTE | 2022-05-06 11:09 | PM.PNGS ---
Progress Note: A&P Assessment and Plan (1) Choledocholithiasis with acute cholecystitis: Code(s): K80.42 - Calculus of bile duct with acute cholecystitis without obstruction Status: Acute Assessment and Plan: Doing well after successful ERCP with sphincterotomy and stone extraction yesterday. Patient still has is Lovenox on hold. Will go ahead today with laparoscopic cholecystectomy. I discussed the procedure the risks the benefits with the patient and his daughter. All questions were answered. He agrees to go ahead. (2) Infection due to extended-spectrum posc-hgbckbwne-nwsvnoclh Klebsiella oxytoca: Code(s): A49.8 - Other bacterial infections of unspecified site; Z16.12 - Extended spectrum beta lactamase (ESBL) resistance Status: Acute (3) Parkinsons: Code(s): G20 - Parkinson's disease Status: Acute Subjective Subjective Date/Time Seen: 05/06/22 11:09 Patient reports: no new complaints, pain is less (Not having any abdominal pain) and afebrile Interval history: Tolerated ERCP with minimal difficulty. Review of Systems Review of Systems: All systems reviewed & are unremarkable except as noted in HPI and below (HPI) Exam Const: General: comfortable, no acute distress and awake Orientation/consciousness: No confusion GI: Inspection: non-distended and incision (Biliary catheter draining bile) GI Palp: Yes Soft to palpation and No Tenderness to palpation present (GI) Objective Data Vital Signs Vital Signs: Vital Signs - 24 hr 05/05/22 12:29 05/05/22 12:39 05/05/22 12:49 Temperature 37.3 C 37.0 C Pulse Rate 51 L 52 L 52 L Respiratory Rate 16 23 H 20 Blood Pressure 142/113 H 157/84 H 151/68 H Pulse Oximetry 100 99 100 Oxygen Delivery Simple Face Mask Simple Face Mask Simple Face Mask Oxygen Flow Rate 8 8 8 05/05/22 12:59 05/05/22 13:09 05/05/22 13:19 Temperature 36.9 C Pulse Rate 52 L 51 L 52 L Respiratory Rate 17 23 H 17 Blood Pressure 148/65 H 150/69 H 147/78 H Pulse Oximetry 100 94 95 Oxygen Delivery Simple Face Mask Room Air Room Air Oxygen Flow Rate 8 05/05/22 13:29 05/05/22 14:02 05/05/22 16:44 Temperature 37.1 C 37.1 C Pulse Rate 52 L 52 L 48 L Respiratory Rate 18 18 Blood Pressure 146/66 H 159/71 H Pulse Oximetry 96 96 Oxygen Delivery Room Air Oxygen Flow Rate 05/05/22 16:00 05/05/22 20:00 05/05/22 22:30 Temperature 36.5 C Pulse Rate 49 L 52 L 52 L Respiratory Rate 18 Blood Pressure 131/63 Pulse Oximetry 96 Oxygen Delivery Oxygen Flow Rate 05/05/22 20:00 05/06/22 00:00 05/06/22 04:00 Temperature Pulse Rate 53 L 54 L Respiratory Rate Blood Pressure Pulse Oximetry Oxygen Delivery Room Air Oxygen Flow Rate 05/06/22 06:53 05/06/22 08:56 05/06/22 10:27 Temperature 36.3 C L Pulse Rate 58 L 60 60 Respiratory Rate 16 Blood Pressure 162/66 H Pulse Oximetry 94 Oxygen Delivery Oxygen Flow Rate Intake/Output Intake/Output: Intake & Output 05/03/22 05/04/22 05/05/22 05/06/22 23:59 23:59 23:59 23:59 Intake Total 028 237 1907 Output Total 850 1095 1745 560 Balance 40 -135 -715 -560 Meds/Results Medications: Active Medications Generic Name Dose Route Start Last Admin Trade Name Freq PRN Reason Stop Dose Admin Acetaminophen 650 mg 04/26/22 02:43 04/29/22 11:55 Acetaminophen 325 Mg Tablet PO 650 mg Q4H PRN Administration Mild Pain (1-3) or Fever Amiodarone HCl 200 mg 05/06/22 08:00 05/06/22 08:56 Amiodarone Hcl 200 Mg Tablet PO 200 mg DAILY@0800 [facility] Administration Aspirin 81 mg 04/28/22 17:20 05/06/22 10:27 Aspirin 81 Mg Chewable Tablet PO Not Given DAILY@0800 [facility] Carbidopa/Levodopa 1 tablet 04/26/22 04:52 05/06/22 06:53 Carbidopa/Levodopa 25/250 Mg Tablet PO 1 tablet Q4H PRN Administration parkinson tremors Enoxaparin Sodium 90 mg 04/29/22 11:30 05/04/22 21:08 Enoxaparin 100 Mg/Ml Syr
[2022-05-06] MEDS: ceFAZolin 2 GM/D5W 50 ML 2 GM/50 ML BAG IVPB (11:53)
--- NOTE | 2022-05-06 13:12 | W.PM.PROC2 ---
Procedure Note - Detailed Date of Procedure 05/06/22 Pre-op Diagnosis Choledocholithiasis with acute cholecystitis and bacteremia Post-op Diagnosis Same Procedure Performed Laparoscopic cholecystectomy Surgeon Chance Ohara MD Manager [employer] [employer] [employer] Anesthesia General and Local (0.25% bupivacaine with epinephrine) Indications Patient is a 71-year-old man with Parkinson's and history of atrial fibrillation. He presented with sepsis due to biliary source. Initially it appeared this was due to acute cholecystitis. A cholecystostomy tube was placed in the patient improved with gallbladder drainage and antibiotics. He had a cholecystogram 2 days ago which showed not only gallstones but stones in the bile duct. He underwent a successful ERCP yesterday with sphincterotomy and stone extraction. He is taken to surgery today for laparoscopic cholecystectomy. Findings The cholecystostomy was removed after the patient was asleep a before prepping the abdomen. There was a lot of chronic inflammation and also some edema. Stones were noted in the gallbladder. The liver appeared normal. There was more bleeding than usual due to the acute inflammation. No other significant findings were noted. Description of Procedure The patient was taken to surgery and induced into general anesthesia. The cholecystostomy tube was removed. The abdomen was prepped and draped. Trocars were placed in the usual fashion using local anesthetic and applied Medical optical trocars. A 5 mm camera was used. The gallbladder was retracted anterosuperiorly. Dissection was carried out in the cholecystohepatic triangle. The cystic duct and cystic artery were dissected out clearly. The dissection in the cholecystohepatic triangle was quite a bit more bloody than usual due to the chronic inflammation and acute inflammation. There was also some edema. Eventually the above structures were dissected satisfactorily. The gallbladder was dissected off the liver at its lower 3rd. Critical view was achieved. The cystic duct cystic artery were then securely clipped and divided. Dissection was continued and the gallbladder was dissected completely free from the liver. Cautery was used for hemostasis. The gallbladder was placed in an Endo-Catch bag. It was retrieved through the 10 11 epigastric trocars site. We then replaced the epigastric trocar reviewed the gallbladder fossa and right upper quadrant. Repeated irrigation and suctioning was carried out. Additional cautery was used. Eventually all looked quite satisfactory with no evidence of bleeding or bile leakage. The irrigant was coming back clear. We suctioned the remaining irrigant away. I then used a Brett cone and Brett suture pass device. The epigastric trocar site was closed at the fascial level with an 0 Vicryl suture using the Brett cone. We evacuated CO2 and removed the trocar sleeves. Skin wounds were closed with subcuticular 4-0 Monocryl skin suture. The wounds were dressed with Exofin surgical adhesive. The patient was awakened and taken to recovery in good condition. Sponge and needle counts were correct x2. Estimated Blood Loss -50.0 Urine Output -250.0 Drains No Packing No Pathology Yes (Gallbladder) Complications No immediate complications Condition Stable Disposition PACU [facility] Billing Surgery - Charge Forward: Surgery Billing (Laparoscopic cholecystectomy)
[2022-05-06] MEDS: LACTATED RINGERS 1,000 ML 80 ML IV CONT (15:08)
--- NOTE | 2022-05-06 16:21 | WPDGIPROGNO ---
Progress Note: A&P Assessment and Plan (1) Choledocholithiasis with acute cholecystitis: Code(s): K80.42 - Calculus of bile duct with acute cholecystitis without obstruction Status: Acute Assessment and Plan: recent ercp with removal stones and today lap yraed good recovery (2) Infection due to extended-spectrum vznk-adxgugbpr-gdpttrssu Klebsiella oxytoca: Code(s): A49.8 - Other bacterial infections of unspecified site; Z16.12 - Extended spectrum beta lactamase (ESBL) resistance Status: Acute Assessment and Plan: on abx (3) Parkinsons: Code(s): G20 - Parkinson's disease Status: Acute (4) Abnormal LFTs: Code(s): R79.89 - Other specified abnormal findings of blood chemistry Status: Acute Assessment and Plan: almost back down to normal (5) Atrial fibrillation with RVR: Code(s): I48.91 - Unspecified atrial fibrillation Status: Acute Assessment and Plan: by cardiology Subjective Date/time seen: 05/06/22 16:21 Interval history: s/p ercp yesterday with sphincterotomy and removal stones/sludge, today lap yared and he is feeling better Review of Systems Review of Systems: All systems reviewed & are unremarkable except as noted in HPI and below Exam Const: General: comfortable and no acute distress HENMT: General nose exam: Normal nares present Eyes: General: appearance normal, both eyes and all related structures Neck: Neck: supple Resp: Auscultation: clear to auscultation bilaterally Cardio: Rhythm: abnormal rhythm irregularly irregular GI: GI Palp: Yes Soft to palpation and No Guarding due to palpation present (GI) Auscultation: normal bowel sounds Other: recent lap yared, expected tenderness from recent surgery Skin: General skin exam: normal color Neuro: Speech: normal speech Motor exam (neuro): 5/5 motor strength present throughout Extrem: General: normal to inspection Psych: Affect: Anxious affect present Objective Data Vital Signs Vital Signs: Vital Signs - 24 hr 05/05/22 16:44 05/05/22 20:00 05/05/22 22:30 Temperature 97.7 F Pulse Rate 48 L 52 L 52 L Respiratory Rate 18 Blood Pressure 131/63 Pulse Oximetry 96 Oxygen Delivery Oxygen Flow Rate 05/05/22 20:00 05/06/22 00:00 05/06/22 04:00 Temperature Pulse Rate 53 L 54 L Respiratory Rate Blood Pressure Pulse Oximetry Oxygen Delivery Room Air Oxygen Flow Rate 05/06/22 06:53 05/06/22 08:56 05/06/22 10:27 Temperature 97.4 F L Pulse Rate 58 L 60 60 Respiratory Rate 16 Blood Pressure 162/66 H Pulse Oximetry 94 Oxygen Delivery Oxygen Flow Rate 05/06/22 09:00 05/06/22 11:22 05/06/22 08:00 Temperature 99.0 F Pulse Rate 95 59 L Respiratory Rate 16 Blood Pressure 143/60 H Pulse Oximetry 95 Oxygen Delivery Room Air Room Air Oxygen Flow Rate 05/06/22 13:00 05/06/22 13:15 05/06/22 13:27 Temperature 99.7 F H Pulse Rate 58 L 52 L 53 L Respiratory Rate 22 H 15 12 Blood Pressure 150/68 H 147/68 H 141/62 H Pulse Oximetry 99 98 91 Oxygen Delivery Simple Face Mask Simple Face Mask Nasal Cannula Oxygen Flow Rate 8 8 4 05/06/22 13:40 05/06/22 13:55 05/06/22 14:22 Temperature Pulse Rate 51 L 50 L 52 L Respiratory Rate 14 12 14 Blood Pressure 144/72 H 138/72 143/61 H Pulse Oximetry 92 92 93 Oxygen Delivery Nasal Cannula Nasal Cannula Nasal Cannula Oxygen Flow Rate 4 4 4 05/06/22 14:45 05/06/22 16:00 Temperature 98.1 F Pulse Rate 51 L 54 L Respiratory Rate 14 Blood Pressure 155/76 H Pulse Oximetry 93 Oxygen Delivery Oxygen Flow Rate Intake/Output Intake/Output: Intake & Output 05/03/22 05/04/22 05/05/22 05/06/22 23:59 23:59 23:59 23:59 Intake Total 407 751 4031 1350 Output Total 850 1095 1745 560 Balance 55 -637 -061 074 Meds/Results Medications: Active Medications Generic Name Dose Route Start Last Admin Trade Name Freq
--- NOTE | 2022-05-06 17:03 | PM.IMPN ---
Progress Note: A&P Assessment and Plan (1) Cholelithiasis and acute cholecystitis with obstruction: Code(s): K80.01 - Calculus of gallbladder with acute cholecystitis with obstruction Status: Acute (2) Choledocholithiasis with acute cholecystitis: Code(s): K80.42 - Calculus of bile duct with acute cholecystitis without obstruction Status: Acute (3) Sepsis: Qualifiers: Sepsis acute organ dysfunction status: with acute organ dysfunction Sepsis type: sepsis due to unspecified organism Severe sepsis acute organ dysfunction type: encephalopathy Severe sepsis shock status: without septic shock Qualified Code(s): A41.9 - Sepsis, unspecified organism; R65.20 - Severe sepsis without septic shock; G93.40 - Encephalopathy, unspecified Code(s): A41.9 - Sepsis, unspecified organism Status: Acute (4) Bacteremia due to Klebsiella pneumoniae: Code(s): R78.81 - Bacteremia; B96.1 - Klebsiella pneumoniae [K. pneumoniae] as the cause of diseases classified elsewhere Status: Acute (5) Atrial fibrillation with RVR: Code(s): I48.91 - Unspecified atrial fibrillation Status: Acute (6) Abnormal LFTs: Code(s): R79.89 - Other specified abnormal findings of blood chemistry Status: Acute (7) Rhabdomyolysis: Code(s): M62.82 - Rhabdomyolysis Status: Acute (8) Metabolic encephalopathy: Code(s): G93.41 - Metabolic encephalopathy Status: Acute (9) Bradycardia: Code(s): R00.1 - Bradycardia, unspecified Status: Acute (10) Parkinsons: Code(s): G20 - Parkinson's disease Status: Acute (11) Hypertension: Code(s): I10 - Essential (primary) hypertension Status: Acute (12) Cholecystostomy care: Code(s): Z43.4 - Encounter for attention to other artificial openings of digestive tract Status: Acute Plan The patient presented to the ER with altered mental status and met sepsis criteria with fever, tachycardia, leukocytosis and confusion. Cultures obtained, he received appropriate fluid resuscitation and was started on Primaxin and Vanco. LP was attempted but was unsuccessful (he has severe spinal stenosis per family). CXR clear.? UA not consistent with UTI and UCx negative.Lactic acid level normal now. WBC down to 12K. Vanco stopped. Concern for GI source so CT A/P ordered showing GB edema and inflammatory changes. RUQ ordered showing acute cholecystitis. GenSurg consult.? Given acute decline 04/28, patient was urgently taken for percutaneous cholecystostomy tube placement.? Blood cultures growing Klebsiella. Bile culture also growing Klebsiella. ?Patient noted to go into AFib with RVR 04/28 started on amiodarone drip.? Cardiology following.? Likely secondary to acute sepsis.? He was moved to the ICU. Patient stabilized. Choledocholithiasis noted on cholangiogram. ERCP 05/05/22 showing multiple stones in the bile duct that were removed. GenSurg for laproscopic Cholecystectomy earlier today. Patient tolerated the procedure well. Continue IV antibiotics. Patient has converted to normal sinus rhythm. Continue amiodarone and Lopressor. Continue therapy. Plan is for mcfp placement once he is ready for discharge. Subjective Date/time seen: 05/06/22 17:03 Interval history: 71yo male with PD here for fevers and sepsis from acute cholecystitis. Resuming care. Chart reviewed. patient returns from laparoscopic cholecystectomy earlier today. Abdominal pain is well controlled. No chest pain shortness for breath. He is currently on 2 L. He denies any nausea or vomiting. He has not eaten since the surgery. Patient has been able to be up out of bed to the chair prior to surgery. Exam Narrative: AF 97.7 141/79 58 14 95% 2L Gen - NARD lying semi-recumbent in bed Chest - lungs clear anteriorly and in the flanks, nml RR CV - RRR S1/S2. Tele showing no significant dysrhythmias Abd - Soft, nondistende
[2022-05-06] MEDS: METOPROLOL TARTRATE 25 MG TABLET PO (17:45)
[2022-05-06] MEDS: ENOXAPARIN 30 MG/0.3 ML SYRINGE SUB-Q (20:21)
[2022-05-06] MEDS: HYDROcodone/acetaminophen (*CRX) 5-325 MG TABLET 1 TAB PO (20:24)
[2022-05-07] VITALS (11 sets, daily range): BP systolic 132–165; BP diastolic 58–73; PULSE 50–62; RESP 1–18; TEMP 36.4–36.7; O2SAT 94–97
[2022-05-07] MEDS: HYDROcodone/acetaminophen (*CRX) 5-325 MG TABLET 1 TAB PO ×2 (02:57→20:31)
[2022-05-07] MEDS: LACTATED RINGERS 1,000 ML 80 ML IV CONT (02:57)
[2022-05-07 05:49] LABS: Hematocrit 30.7 % (42.0-52.0); Mean Corpuscular HGB Conc 32.6 g/dl (32-36); Mean Corpuscular Hemoglobin 31.5 pg (26-34); Mean Corpuscular Volume 96.8 fl (80-100); Mean Platelet Volume 11.1 fl (7.4-10.4); Platelet Count Result 276 k/mm3 (150-375); Red Blood Count 3.17 M/mm3 (4.6-6.20); Red Cell Distribution Width 13.8 % (11.5-14.5); White Blood Count 12.1 K/mm3 (4.5-10.0)
[2022-05-07 06:06] LABS: Alanine Aminotransferase 17 U/L (6-50); Albumin Level 2.7 g/dL (3.5-5.1); Alkaline Phosphatase 107 U/L (38-126); Anion Gap 4 mmol/L (8-16); Aspartate Amino Transferase 38 U/L (17-59); Bilirubin,Total 0.7 mg/dL (0.2-1.3); Blood Urea Nitrogen 19 mg/dL (9-20); Calcium 8.1 mg/dL (8.4-10.2); Carbon Dioxide 28 mmol/L (22-30); Chloride 101 mmol/L (98-107); Estimated CRCL calculation 74 ml/min; Estimated Glomerular Filt Rate > 60; Glucose 110 mg/dL (65-110); Lipase 56 U/L (23-300); Sodium 133 mmol/L (137-145)
--- NOTE | 2022-05-07 07:14 | PM.IMPN ---
Progress Note: A&P Assessment and Plan (1) Cholelithiasis and acute cholecystitis with obstruction: Code(s): K80.01 - Calculus of gallbladder with acute cholecystitis with obstruction Status: Acute (2) Choledocholithiasis with acute cholecystitis: Code(s): K80.42 - Calculus of bile duct with acute cholecystitis without obstruction Status: Acute (3) Sepsis: Qualifiers: Sepsis acute organ dysfunction status: with acute organ dysfunction Sepsis type: sepsis due to unspecified organism Severe sepsis acute organ dysfunction type: encephalopathy Severe sepsis shock status: without septic shock Qualified Code(s): A41.9 - Sepsis, unspecified organism; R65.20 - Severe sepsis without septic shock; G93.40 - Encephalopathy, unspecified Code(s): A41.9 - Sepsis, unspecified organism Status: Acute (4) Bacteremia due to Klebsiella pneumoniae: Code(s): R78.81 - Bacteremia; B96.1 - Klebsiella pneumoniae [K. pneumoniae] as the cause of diseases classified elsewhere Status: Acute (5) Atrial fibrillation with RVR: Code(s): I48.91 - Unspecified atrial fibrillation Status: Acute (6) Abnormal LFTs: Code(s): R79.89 - Other specified abnormal findings of blood chemistry Status: Acute (7) Rhabdomyolysis: Code(s): M62.82 - Rhabdomyolysis Status: Acute (8) Metabolic encephalopathy: Code(s): G93.41 - Metabolic encephalopathy Status: Acute (9) Bradycardia: Code(s): R00.1 - Bradycardia, unspecified Status: Acute (10) Parkinsons: Code(s): G20 - Parkinson's disease Status: Acute (11) Hypertension: Code(s): I10 - Essential (primary) hypertension Status: Acute (12) Cholecystostomy care: Code(s): Z43.4 - Encounter for attention to other artificial openings of digestive tract Status: Acute Plan The patient presented to the ER with altered mental status and met sepsis criteria with fever, tachycardia, leukocytosis and confusion. Cultures obtained, he received appropriate fluid resuscitation and was started on Primaxin and Vanco. LP was attempted but was unsuccessful (he has severe spinal stenosis per family). CXR was clear.? UA was not consistent with UTI and UCx negative.Lactic acid level normalized. Concern for GI source so CT A/P ordered showing GB edema and inflammatory changes. RUQ showing acute cholecystitis. GenSurg consulted.? Patient developed acute decline 04/28 with the development of AFib/RVR. He was urgently taken for percutaneous cholecystostomy tube placement.? Blood cultures growing Klebsiella. Bile culture also growing Klebsiella. ?Patient was started on amiodarone drip.? Cardiology consulted.? Likely AFib secondary to acute sepsis.? He was moved to the ICU. Patient stabilized. Choledocholithiasis noted on cholangiogram. ERCP 05/05/22 showing multiple stones in the bile duct that were removed. GenSurg for laproscopic Cholecystectomy 05/06/22. Patient tolerated the procedure well. He remains on IV antibiotics. Patient has converted to normal sinus rhythm. Continue amiodarone and Lopressor. Continue therapy. Stop tele? Change to oral DOAC when okay with GenSurg. Advance diet per GenSurg. Plan is for long term placement once he is ready for discharge. DVT Prophylaxis: Lovenox Code Status: Full Diet: Clears Subjective Date/time seen: 05/07/22 07:14 Interval history: 71yo male with PD here for fevers and sepsis from acute cholecystitis. No issues overnight. Feels well. More pain last night requiring pain meds. Abd pain controlled at this time. No flatus or BMs. Tolerating clears without n/v. No CP or SOB. Weaned to room air Exam Narrative: AF 98.1 165/73 62 18 95% RA Gen - NARD lying semi-recumbent in bed Chest - lungs clear anteriorly and in the flanks, nml RR CV - RRR S1/S2. Tele showing no significant dysrhythmias Abd - Soft, nondistended, +BS, minimal tenderness, in
--- NOTE | 2022-05-07 07:44 | PM.PNGS ---
Progress Note: A&P Assessment and Plan (1) Choledocholithiasis with acute cholecystitis: Code(s): K80.42 - Calculus of bile duct with acute cholecystitis without obstruction Status: Acute Assessment and Plan: Doing quite well postop day 1. Laparoscopic cholecystectomy. Will start low-fat diet. Resume PT OT. Continue to hold therapeutic anticoagulation. (2) Bacteremia due to Klebsiella pneumoniae: Code(s): R78.81 - Bacteremia; B96.1 - Klebsiella pneumoniae [K. pneumoniae] as the cause of diseases classified elsewhere Status: Acute Assessment and Plan: Can discontinue antibiotics from my perspective. (3) Infection due to extended-spectrum qnaa-uugnfhlmo-aquxomfxg Klebsiella oxytoca: Code(s): A49.8 - Other bacterial infections of unspecified site; Z16.12 - Extended spectrum beta lactamase (ESBL) resistance Status: Acute Assessment and Plan: Consider discontinuing antibiotics. (4) Chronic anticoagulation: Code(s): Z79.01 - oil heaterman (current) use of anticoagulants Status: Acute Assessment and Plan: Hold off on anticoagulation today but can resume anticoagulation tomorrow. (5) Parkinsons: Code(s): G20 - Parkinson's disease Status: Acute Assessment and Plan: Tolerated surgery amazingly well. Continue meds for Parkinson's as before. Subjective Subjective Date/Time Seen: 05/07/22 07:44 Post Op day: 1 Patient reports: no new complaints, feels better, pain is less ( took some [place] last night but not having pain this morning) and afebrile Review of Systems Review of Systems: All systems reviewed & are unremarkable except as noted in HPI and below ( HPI and those items noted below) Constitutional: Constitutional: Denies chills and Denies fever(s) Cardiovascular: Cardiovascular: Denies chest pain, Denies diaphoresis, Denies dyspnea and Denies paroxysmal nocturnal dyspnea Respiratory: Respiratory: Denies chest congestion, Denies cough and Denies dyspnea Gastrointestinal: Gastrointestinal: Reports abdominal pain ( postop incisional pain. Improved this morning.), Denies nausea and Denies vomiting Integumentary/Breasts: Skin/Breast: Denies lesions and Denies rash Objective Data Vital Signs Vital Signs: Vital Signs - 24 hr 05/06/22 08:56 05/06/22 10:27 05/06/22 09:00 Temperature Pulse Rate 60 60 Respiratory Rate Blood Pressure Pulse Oximetry Oxygen Delivery Room Air Oxygen Flow Rate 05/06/22 11:22 05/06/22 08:00 05/06/22 13:00 Temperature 37.2 C 37.6 C H Pulse Rate 95 59 L 58 L Respiratory Rate 16 22 H Blood Pressure 143/60 H 150/68 H Pulse Oximetry 95 99 Oxygen Delivery Room Air Simple Face Mask Oxygen Flow Rate 8 05/06/22 13:15 05/06/22 13:27 05/06/22 13:40 Temperature Pulse Rate 52 L 53 L 51 L Respiratory Rate 15 12 14 Blood Pressure 147/68 H 141/62 H 144/72 H Pulse Oximetry 98 91 92 Oxygen Delivery Simple Face Mask Nasal Cannula Nasal Cannula Oxygen Flow Rate 8 4 4 05/06/22 13:55 05/06/22 14:22 05/06/22 14:45 Temperature 36.7 C Pulse Rate 50 L 52 L 51 L Respiratory Rate 12 14 14 Blood Pressure 138/72 143/61 H 155/76 H Pulse Oximetry 92 93 93 Oxygen Delivery Nasal Cannula Nasal Cannula Oxygen Flow Rate 4 4 05/06/22 16:00 05/06/22 14:50 05/06/22 15:05 Temperature 36.7 C 36.4 C Pulse Rate 54 L 51 L 54 L Respiratory Rate 14 12 Blood Pressure 155/76 H 138/69 Pulse Oximetry 93 97 Oxygen Delivery Oxygen Flow Rate 05/06/22 15:35 05/06/22 16:35 05/06/22 17:45 Temperature 36.5 C 36.5 C Pulse Rate 53 L 58 L 51 L Respiratory Rate 12 14 Blood Pressure 144/68 H 141/79 H Pulse Oximetry 99 95 Oxygen Delivery Oxygen Flow Rate 05/06/22 17:45 05/06/22 20:48 05/06/22 20:00 Temperature 36.5 C Pulse Rate 54 L 44 L Respiratory Rate 14 Blood Pressure 123/63 Pulse Oximetry 93 93 Oxygen Delivery Nasal Cannula Oxygen Flow R
[2022-05-07] MEDS: cefTRIAXone 2 GM in SODIUM CHLORIDE 0.9% IV 100 ML 200 ML IVPB (08:11)
[2022-05-07] MEDS: PANTOPRAZOLE 40 MG TABLET PO (08:13)
[2022-05-07] MEDS: AMIODARONE HCL 200 MG TABLET PO (08:14)
[2022-05-07] MEDS: ENOXAPARIN 30 MG/0.3 ML SYRINGE SUB-Q ×2 (08:15→20:28)
[2022-05-07] MEDS: ASPIRIN 81 MG CHEWABLE TABLET PO (08:15)
[2022-05-07] MEDS: lisinopriL 20 MG TABLET PO (08:15)
--- NOTE | 2022-05-07 11:51 | PCOTNOTE ---
Patient re-assessed for Occupational Therapy on this date due to surgery on 05/06/2022. Continue with plan of care as indicated in chart.
--- NOTE | 2022-05-07 12:08 | WPDANESPN ---
Anes - Prog Note Post-Op Date/Time: 05/07/22 12:08 Cardiovascular status: normal Respiratory status: normal Airway patency: baseline Mental status: baseline Post-Op hydration status: normal Vital Signs: Last Vital Signs Temp 36.7 C 05/07/22 06:51 Pulse 60 05/07/22 08:14 Resp 18 05/07/22 06:51 BP 165/73 H 05/07/22 06:51 Pulse Ox 95 05/07/22 08:00 O2 Del Method Room Air 05/07/22 11:19 O2 Flow Rate 1 05/06/22 17:45 Pain Score (VAS): 0 I/O: Intake & Output 05/06/22 05/07/22 05/07/22 23:59 07:59 15:59 Intake Total 320 1250 518 Output Total 200 475 Balance 120 775 518 Laboratory Tests 05/07/22 05:15 05/07/22 05:15 05/07/22 05/07/22 05:15 05:15 WBC 12.1 H RBC 3.17 L Hgb 10.0 L Hct 30.7 L MCV 96.8 MCH 31.5 MCHC 32.6 RDW 13.8 Plt Count 276 MPV 11.1 H Sodium 133 L Potassium 4.0 Chloride 101 Carbon Dioxide 28 Anion Gap 4 L BUN 19 Creatinine 0.90 Estim Creat Clear Calc 74 Estimated GFR > 60 Glucose 110 Calcium 8.1 L Total Bilirubin 0.7 AST 38 ALT 17 Alkaline Phosphatase 107 Total Protein 5.0 L Albumin 2.7 L Lipase 56 Post-procedural complaints: none Patient Feedback: Patient satisfied with anesthetic care.
--- NOTE | 2022-05-07 13:35 | PM.PNCARD ---
Progress Note: A&P Assessment and Plan (1) Atrial fibrillation with RVR: Code(s): I48.91 - Unspecified atrial fibrillation Status: Acute Assessment and Plan: Acute onset of atrial fibrillation with RVR in the setting of cholecystitis. He has been back in sinus rhythm for several days Continue amiodarone for now. This should be for a brief period time perioperatively. Continue metoprolol 25mg b.i.d. May hold if heart rate less than 60 beats per minute. Hold anticoagulation (2) Bradycardia: Code(s): R00.1 - Bradycardia, unspecified Status: Acute Assessment and Plan: Asymptomatic, noted upon conversion to sinus rhythm on amiodarone and metoprolol. (3) Cholelithiasis and acute cholecystitis with obstruction: Code(s): K80.01 - Calculus of gallbladder with acute cholecystitis with obstruction Status: Deleted Assessment and Plan: Per surgical service. Status post percutaneous cholecystostomy tube. (4) Sepsis: Qualifiers: Sepsis acute organ dysfunction status: with acute organ dysfunction Sepsis type: sepsis due to unspecified organism Severe sepsis acute organ dysfunction type: encephalopathy Severe sepsis shock status: without septic shock Qualified Code(s): A41.9 - Sepsis, unspecified organism; R65.20 - Severe sepsis without septic shock; G93.40 - Encephalopathy, unspecified Code(s): A41.9 - Sepsis, unspecified organism Status: Acute Assessment and Plan: Klebsiella bacteremia. Repeat cultures negative, remains on antibiotics. Management per primary service and surgery. Hemodynamically stable, tolerating lisinopril. Discontinue if relative hypotension. Subjective Date/time seen: 05/07/22 13:35 Cardiology follow up for atrial fibrillation Feeling better today. Out of bed for the first time in several days. Has no complaints. Still in sinus rhythm/sinus bradycardia. Review of Systems Review of Systems: All systems reviewed & are unremarkable except as noted in HPI and below ROS unobtainable: Yes unobtainable due to mental status (Pt is delerious and can not give a good hx.) Constitutional: Constitutional: Denies chills (fevers) Eyes: Eyes: Reports no additional eye complaints ENT: Denies epistaxis Cardiovascular: Cardiovascular: Reports chest pain (a little tightness) and Denies dyspnea Respiratory: Respiratory: Denies chest congestion, Denies cough and Denies dyspnea Gastrointestinal: Gastrointestinal: Denies abdominal pain, Denies hematochezia and Denies heartburn Genitourinary: Genitourinary: Denies hematuria Musculoskeletal: Musculoskeletal: Reports no additional musculoskeletal complaints Integumentary/Breasts: Skin/Breast: Reports system reviewed and no additional complaints, except as docu Neurologic: Reports confusion Psychiatric: Psychiatric: Reports confusion Exam Const: General: cooperative, comfortable, no acute distress, confusion and uncomfortable Orientation/consciousness: oriented to person and No patient oriented x3 Other: Pleasant gentleman appearing his stated age no distress but appearing fatigued sitting upright in bed more alert, conversant HENMT: Mouth: Yes moist mucous membranes and Yes dry mucous membranes Eyes: Sclera: sclerae normal EOM: EOMs intact bilaterally Neck: Neck: supple and no JVD Thyroid: thyroid normal Resp: Effort & Inspection: normal respiratory effort Auscultation: clear to auscultation bilaterally Cardio: Rate: regular rate, bradycardic and tachycardic Rhythm: regular rhythm and abnormal rhythm irregularly irregular Heart sounds: no murmurs GI: Inspection: normal to inspection Auscultation: normal bowel sounds Urinary Catheter: Urinary Catheter: patent and draining Skin: General skin exam: normal color and no rashes or lesions noted Neuro: General: oriented to person, No patient oriented x3 and confusion Other: normal mentation no focal defic
--- NOTE | 2022-05-07 15:46 | WPDGIPROGNO ---
Progress Note: A&P Assessment and Plan (1) Choledocholithiasis with acute cholecystitis: Code(s): K80.42 - Calculus of bile duct with acute cholecystitis without obstruction Status: Acute Assessment and Plan: recent ercp with removal stones then followed by dayday [facility] good recovery and tolerating diet (2) Infection due to extended-spectrum [id number] Klebsiella oxytoca: Code(s): A49.8 - Other bacterial infections of unspecified site; Z16.12 - Extended spectrum beta lactamase (ESBL) resistance Status: Acute Assessment and Plan: completed abx (3) Parkinsons: Code(s): G20 - Parkinson's disease Status: Acute (4) Abnormal LFTs: Code(s): R79.89 - Other specified abnormal findings of blood chemistry Status: Acute Assessment and Plan: almost back down to normal (5) Atrial fibrillation with RVR: Code(s): I48.91 - Unspecified atrial fibrillation Status: Acute Assessment and Plan: by cardiology Subjective Date/time seen: 05/07/22 15:46 Interval history: feeling better, family members at bedside Review of Systems Review of Systems: All systems reviewed & are unremarkable except as noted in HPI and below Exam Const: General: comfortable and no acute distress HENMT: General nose exam: Normal nares present Eyes: General: appearance normal, both eyes and all related structures Neck: Neck: supple Resp: Auscultation: clear to auscultation bilaterally Cardio: Rhythm: abnormal rhythm irregularly irregular GI: GI Palp: Yes Soft to palpation and No Guarding due to palpation present (GI) Auscultation: normal bowel sounds Other: recent lap yared, expected tenderness from recent surgery Skin: General skin exam: normal color Neuro: Speech: normal speech Motor exam (neuro): 5/5 motor strength present throughout Extrem: General: normal to inspection Psych: Affect: Anxious affect present Objective Data Vital Signs Vital Signs: Vital Signs - 24 hr 05/06/22 16:00 05/06/22 16:35 05/06/22 17:45 Temperature 97.7 F Pulse Rate 54 L 58 L 51 L Respiratory Rate 14 Blood Pressure 141/79 H Pulse Oximetry 95 Oxygen Delivery Oxygen Flow Rate 05/06/22 17:45 05/06/22 20:48 05/06/22 20:00 Temperature 97.7 F Pulse Rate 54 L 44 L Respiratory Rate 14 Blood Pressure 123/63 Pulse Oximetry 93 93 Oxygen Delivery Nasal Cannula Oxygen Flow Rate 1 05/06/22 20:00 05/07/22 00:00 05/07/22 02:00 Temperature 97.6 F Pulse Rate 55 L 59 L Respiratory Rate 18 Blood Pressure 149/73 H Pulse Oximetry 94 Oxygen Delivery Room Air Oxygen Flow Rate 05/07/22 04:00 05/07/22 06:51 05/07/22 08:14 Temperature 98.1 F Pulse Rate 54 L 62 60 Respiratory Rate 18 Blood Pressure 165/73 H Pulse Oximetry 95 Oxygen Delivery Oxygen Flow Rate 05/07/22 08:00 05/07/22 08:00 05/07/22 11:19 Temperature Pulse Rate 56 L 60 Respiratory Rate Blood Pressure Pulse Oximetry 95 Oxygen Delivery Room Air Room Air Oxygen Flow Rate 05/07/22 13:59 05/07/22 14:31 Temperature 98.1 F Pulse Rate 50 L Respiratory Rate 16 Blood Pressure 132/58 L Pulse Oximetry 97 Oxygen Delivery Room Air Oxygen Flow Rate Intake/Output Intake/Output: Intake & Output 05/04/22 05/05/22 05/06/22 05/07/22 23:59 23:59 23:59 23:59 Intake Total 960 1030 1770 1768 Output Total 1095 1745 760 475 Balance -135 -715 1010 1293 Meds/Results Medications: Active Medications Generic Name Dose Route Start Last Admin Trade Name Freq PRN Reason Stop Dose Admin Acetaminophen 500 mg 05/06/22 14:27 Acetaminophen 500 Mg Tablet PO Q6H PRN Mild Pain (1-3) or Fever Hydrocodone Bitart/Acetaminophen 1 tab 05/06/22 14:27 05/07/22 02:57 Hydrocodone/Acetaminophen (*Crx) 5-325 Mg Tablet PO 1 tab Q4H PRN Administration Pain Rated 4-6 Hydrocodone Bitart/Acetam
[2022-05-07] MEDS: CARBIDOPA/LEVODOPA 25/250 MG TABLET 1 TABLET PO (19:28)
[2022-05-08] VITALS (11 sets, daily range): BP systolic 131–162; BP diastolic 56–74; PULSE 45–72; RESP 16–18; TEMP 36.6–36.8; O2SAT 96–98
[2022-05-08 05:55] LABS: Basophils Percent Auto 0.3 % (0.2-1.2); Eosinophils Absolute Auto 0.1 K/mm3 (0-0.3); Eosinophils Percent Auto 1.1 % (0-4.4); Hematocrit 29.9 % (42.0-52.0); Hemoglobin 9.5 g/dL (14.0-18.0); Immature Granulocyte Absolute 0.03 K/mm3 (0.00-0.031); Immature Granulocyte Percent A 0.4 % (0-0.5); Lymphocytes Absolute Auto 0.91 K/mm3 (0.9-3.2); Lymphocytes Percent Auto 12.1 % (18.3-44.2); Mean Corpuscular HGB Conc 31.8 g/dl (32-36); Mean Corpuscular Hemoglobin 31.7 pg (26-34); Mean Corpuscular Volume 99.7 fl (80-100); Mean Platelet Volume 11.2 fl (7.4-10.4); Monocytes Absolute Auto 0.6 K/mm3 (0.1-0.6); Monocytes Percent Auto 7.6 % (2.6-8.5); Neutrophils Absolute Auto 5.9 K/mm3 (1.3-6.7); Neutrophils Percent Auto 78.5 % (45.5-73.1); Platelet Count Result 258 k/mm3 (150-375); Red Cell Distribution Width 14.1 % (11.5-14.5); White Blood Count 7.5 K/mm3 (4.5-10.0)
[2022-05-08 05:57] LABS: Alanine Aminotransferase 14 U/L (6-50); Albumin Level 2.5 g/dL (3.5-5.1); Alkaline Phosphatase 103 U/L (38-126); Anion Gap 6 mmol/L (8-16); Aspartate Amino Transferase 27 U/L (17-59); Bilirubin,Total 0.6 mg/dL (0.2-1.3); Blood Urea Nitrogen 21 mg/dL (9-20); Calcium 7.9 mg/dL (8.4-10.2); Carbon Dioxide 28 mmol/L (22-30); Chloride 103 mmol/L (98-107); Estimated CRCL calculation 67 ml/min; Estimated Glomerular Filt Rate > 60; Glucose 98 mg/dL (65-110); Potassium 3.4 mmol/L (3.4-5.0); Sodium 137 mmol/L (137-145)
--- NOTE | 2022-05-08 08:02 | PM.PNCARD ---
Progress Note: A&P Assessment and Plan (1) Atrial fibrillation with RVR: Code(s): I48.91 - Unspecified atrial fibrillation Status: Acute Assessment and Plan: Acute onset of atrial fibrillation with RVR in the setting of cholecystitis. He has been back in sinus rhythm for several days. Will discontinue amiodarone today. Continue metoprolol 25mg b.i.d. May hold if heart rate less than 60 beats per minute. Will not require skilled nursing systemic anticoagulation unless he has a recurrence of atrial fibrillation. (2) Bradycardia: Code(s): R00.1 - Bradycardia, unspecified Status: Acute Assessment and Plan: Asymptomatic, noted upon conversion to sinus rhythm on amiodarone and metoprolol. (3) Sepsis: Qualifiers: Sepsis acute organ dysfunction status: with acute organ dysfunction Sepsis type: sepsis due to unspecified organism Severe sepsis acute organ dysfunction type: encephalopathy Severe sepsis shock status: without septic shock Qualified Code(s): A41.9 - Sepsis, unspecified organism; R65.20 - Severe sepsis without septic shock; G93.40 - Encephalopathy, unspecified Code(s): A41.9 - Sepsis, unspecified organism Status: Acute Assessment and Plan: Klebsiella bacteremia. Repeat cultures negative, remains on antibiotics. Management per primary service and surgery. Hemodynamically stable, tolerating lisinopril. Discontinue if relative hypotension. Subjective Date/time seen: 05/08/22 08:02 Cardiology follow up for atrial fibrillation Feeling well this morning. No chest pain, palpitations, shortness of breath. Some mild abdominal tenderness. Review of Systems Review of Systems: All systems reviewed & are unremarkable except as noted in HPI and below ROS unobtainable: Yes unobtainable due to mental status (Pt is delerious and can not give a good hx.) Constitutional: Constitutional: Denies chills (fevers) Eyes: Eyes: Reports no additional eye complaints ENT: Denies epistaxis Cardiovascular: Cardiovascular: Reports chest pain (a little tightness) and Denies dyspnea Respiratory: Respiratory: Denies chest congestion, Denies cough and Denies dyspnea Gastrointestinal: Gastrointestinal: Denies abdominal pain, Denies hematochezia and Denies heartburn Genitourinary: Genitourinary: Denies hematuria Musculoskeletal: Musculoskeletal: Reports no additional musculoskeletal complaints Integumentary/Breasts: Skin/Breast: Reports system reviewed and no additional complaints, except as docu Neurologic: Reports confusion Psychiatric: Psychiatric: Reports confusion Exam Const: General: cooperative, comfortable, no acute distress, confusion and uncomfortable Orientation/consciousness: oriented to person, No patient oriented x3 and confusion Other: Pleasant gentleman appearing his stated age no distress but appearing fatigued sitting upright in bed more alert, conversant HENMT: Mouth: Yes moist mucous membranes and Yes dry mucous membranes Eyes: Sclera: sclerae normal EOM: EOMs intact bilaterally Neck: Neck: supple and no JVD Thyroid: thyroid normal Resp: Effort & Inspection: normal respiratory effort Auscultation: clear to auscultation bilaterally Cardio: Rate: regular rate and bradycardic Rhythm: regular rhythm Heart sounds: no murmurs GI: Inspection: normal to inspection Auscultation: normal bowel sounds and abnormal bowel sounds (No bowel sounds) Other: Soft, positive bowel sounds, mild tenderness no rebound Urinary Catheter: Urinary Catheter: patent and draining Skin: General skin exam: normal color and no rashes or lesions noted Neuro: General: oriented to person, No patient oriented x3 and confusion Other: normal mentation no focal deficits Extrem: Right lower extremity: no edema Left lower extremity: no edema Psych: Appearance: grossly abnormal Mental Status: mental status grossly normal Affect: No normal affect Other: Calm
[2022-05-08] MEDS: ASPIRIN 81 MG CHEWABLE TABLET PO (08:23)
[2022-05-08] MEDS: AMIODARONE HCL 200 MG TABLET PO (08:23)
[2022-05-08] MEDS: PANTOPRAZOLE 40 MG TABLET PO (08:24)
[2022-05-08] MEDS: lisinopriL 20 MG TABLET PO (08:24)
[2022-05-08] MEDS: ENOXAPARIN 100 MG/ML SYRINGE 90 MG SUB-Q (09:01)
--- NOTE | 2022-05-08 12:30 | PM.PNGS ---
Progress Note: A&P Assessment and Plan (1) Choledocholithiasis with acute cholecystitis: Code(s): K80.42 - Calculus of bile duct with acute cholecystitis without obstruction Status: Acute Assessment and Plan: Doing well after laparoscopic cholecystectomy. Okay to discharge from surgical standpoint when medically fit for discharge. He will need to see me in the office in approximately 2 weeks. Discharge instructions written. Script for [place] written. (2) Chronic anticoagulation: Code(s): Z79.01 - [facility] (current) use of anticoagulants Status: Acute Assessment and Plan: Okay to resume anticoagulation. Subjective Subjective Date/Time Seen: 05/08/22 12:30 Post Op day: 2 Patient reports: no new complaints, tolerating a regular diet and afebrile Exam Const: General: comfortable, alert and awake GI: Inspection: non-distended and incision (All incisions dry and healing well) GI Palp: Yes Soft to palpation, No Tenderness to palpation present (GI) and No Palpable mass present Auscultation: normal bowel sounds Objective Data Vital Signs Vital Signs: Vital Signs - 24 hr 05/07/22 13:59 05/07/22 14:31 05/07/22 16:00 Temperature 36.7 C Pulse Rate 50 L 50 L Respiratory Rate 16 Blood Pressure 132/58 L Pulse Oximetry 97 Oxygen Delivery Room Air 05/07/22 16:44 05/07/22 16:44 05/07/22 22:00 Temperature 36.7 C Pulse Rate 51 L 51 L 53 L Respiratory Rate 1 L Blood Pressure 137/63 Pulse Oximetry 96 Oxygen Delivery 05/07/22 20:00 05/08/22 00:00 05/08/22 03:34 Temperature 36.8 C Pulse Rate 52 L 57 L 50 L Respiratory Rate 16 Blood Pressure 143/61 H Pulse Oximetry 96 Oxygen Delivery 05/08/22 04:00 05/08/22 08:22 05/08/22 08:23 Temperature Pulse Rate 45 L 54 L 54 L Respiratory Rate Blood Pressure Pulse Oximetry Oxygen Delivery 05/08/22 08:00 Temperature Pulse Rate 54 L Respiratory Rate Blood Pressure Pulse Oximetry Oxygen Delivery Intake/Output Intake/Output: Intake & Output 05/05/22 05/06/22 05/07/22 05/08/22 23:59 23:59 23:59 23:59 Intake Total 1030 1770 2258 220 Output Total 4776 760 850 Balance -715 1010 1408 220 Meds/Results Medications: Active Medications Generic Name Dose Route Start Last Admin Trade Name Freq PRN Reason Stop Dose Admin Acetaminophen 500 mg 05/06/22 14:27 Acetaminophen 500 Mg Tablet PO Q6H PRN Mild Pain (1-3) or Fever Hydrocodone Bitart/Acetaminophen 1 tab 05/06/22 14:27 05/07/22 20:31 Hydrocodone/Acetaminophen (*Crx) 5-325 Mg Tablet PO 1 tab Q4H PRN Administration Pain Rated 4-6 Hydrocodone Bitart/Acetaminophen 1 tab 05/06/22 14:27 Hydrocodone/Acetaminophen (*Crx) 10-325 Mg Tablet PO Q4H PRN Pain Rated 7-10 Aspirin 81 mg 04/28/22 17:20 05/08/22 08:23 Aspirin 81 Mg Chewable Tablet PO 81 mg DAILY@0800 YINAK Administration Carbidopa/Levodopa 1 tablet 04/26/22 04:52 05/07/22 19:28 Carbidopa/Levodopa 25/250 Mg Tablet PO 1 tablet Q4H PRN Administration parkinson tremors Enoxaparin Sodium 90 mg 04/29/22 11:30 05/08/22 09:01 Enoxaparin 100 Mg/Ml Syringe SUB-Q 90 mg Q12HR YINKA Administration Hydralazine HCl 10 mg 05/05/22 12:16 Hydralazine Hcl 20 Mg/Ml Vial IV PUSH Q8H PRN Blood Pressure - High Ibuprofen 800 mg in 200 mls @ 400 mls/hr 05/06/22 14:27 Caldolor 800 Mg/200 Ml IVPB Q6H PRN Pain Rated 4-6 Lisinopril 20 mg 05/05/22 09:00 05/08/22 08:24 Lisinopril 20 Mg Tablet PO 20 mg DAILY YINKA Administration Metoprolol Tartrate 12.5 mg 05/08/22 09:00 05/08/22 08:22 Metoprolol Tartrate 12.5 Mg Tablet PO Not Given Q12HR YINKA Morphine Sulfate 2 mg 05/06/22 14:27 Morphine Sulfate (*Crx) 2 Mg/Ml Inj IV PUSH Q2H PRN Pain Rated 7-10 Ondansetron HCl 4 mg 05/06/22 14:27 Ondansetron Inj 4 Mg/2 Ml Vial IV PUSH Q4H P
--- NOTE | 2022-05-08 15:37 | PM.DS ---
DS: Admitting Diagnosis Discharge Date 05/08/22 Admitting Diagnosis Altered mental status DS: Discharge Diagnosis Discharge Diagnosis (1) Cholelithiasis and acute cholecystitis with obstruction: Code(s): K80.01 - Calculus of gallbladder with acute cholecystitis with obstruction Status: Deleted (2) Choledocholithiasis with acute cholecystitis: Code(s): K80.42 - Calculus of bile duct with acute cholecystitis without obstruction Status: Acute (3) Sepsis: Qualifiers: Sepsis acute organ dysfunction status: with acute organ dysfunction Sepsis type: sepsis due to unspecified organism Severe sepsis acute organ dysfunction type: encephalopathy Severe sepsis shock status: without septic shock Qualified Code(s): A41.9 - Sepsis, unspecified organism; R65.20 - Severe sepsis without septic shock; G93.40 - Encephalopathy, unspecified Code(s): A41.9 - Sepsis, unspecified organism Status: Acute (4) Bacteremia due to Klebsiella pneumoniae: Code(s): R78.81 - Bacteremia; B96.1 - Klebsiella pneumoniae [K. pneumoniae] as the cause of diseases classified elsewhere Status: Acute (5) Atrial fibrillation with RVR: Code(s): I48.91 - Unspecified atrial fibrillation Status: Acute (6) Abnormal LFTs: Code(s): R79.89 - Other specified abnormal findings of blood chemistry Status: Acute (7) Rhabdomyolysis: Code(s): M62.82 - Rhabdomyolysis Status: Acute (8) Metabolic encephalopathy: Code(s): G93.41 - Metabolic encephalopathy Status: Acute (9) Bradycardia: Code(s): R00.1 - Bradycardia, unspecified Status: Acute (10) Parkinsons: Code(s): G20 - Parkinson's disease Status: Acute (11) Hypertension: Code(s): I10 - Essential (primary) hypertension Status: Acute (12) Cholecystostomy care: Code(s): Z43.4 - Encounter for attention to other artificial openings of digestive tract Status: Deleted DS: Summary Hospital Course Reason for hospitalization: 71yo male with PD here for fevers and sepsis from acute cholecystitis. Please see H&P for details Hospital Course: The patient presented to the ER with altered mental status and met sepsis criteria with fever, tachycardia, leukocytosis and confusion. Cultures obtained, he received appropriate fluid resuscitation and was started on Primaxin and Vanco. LP was attempted but was unsuccessful (he has severe spinal stenosis per family). CXR was clear.? UA was not consistent with UTI and UCx negative. Lactic acid level normalized. Concern for GI source so CT A/P ordered showing GB edema and inflammatory changes. RUQ showing acute cholecystitis. GenSurg consulted.? Patient developed acute decline 04/28 with the development of AFib/RVR. He was urgently taken for percutaneous cholecystostomy tube placement.? Blood cultures growing Klebsiella. Bile culture also growing Klebsiella. ?Patient was started on amiodarone drip.? Cardiology consulted.? Likely AFib secondary to acute sepsis.? He was moved to the ICU. Patient stabilized. Choledocholithiasis noted on cholangiogram. ERCP 05/05/22 showing multiple stones in the bile duct that were removed. GenSurg consulted for laproscopic cholecystectomy 05/06/22. Patient tolerated the procedure well. He completed a course of IV antibiotics. Patient converted to normal sinus rhythm. Amiodarone stopped and he was continued on Lopressor. He did well with therapy. Diet advanced. Plan is for acute rehab placement. He was accepted by Dr Sanchez. -- Cardiology did not feel the patient needed longterm anticoagulation unless he develops Atrial Fibrillation again. -- Spoke with GenSurg about DVT prophylaxis after discharge. Plan to continue Lovenox 40mg SQ daily until patient is ambulatory at his baseline at the discretion of the accepting physician. Status at Discharge Cognitive/behavioral status at discharge: Stable Time S
--- NOTE | 2022-05-08 19:56 | PCCCNOTE ---
Late entry: Phone call received from Emilee while animal care giver was in the ED notifying that [facility] could not accept patient tonight due to staffing. Emilee states that Dr. Stanton was notified.
[2022-05-08] MEDS: METOPROLOL TARTRATE 12.5 MG TABLET PO (20:51)
[2022-05-08] MEDS: HYDROcodone/acetaminophen (*CRX) 5-325 MG TABLET 1 TAB PO (20:52)
[2022-05-08] MEDS: CARBIDOPA/LEVODOPA 25/250 MG TABLET 1 TABLET PO (21:26)
[2022-05-09 03:54] VITALS: BP 157/77; PULSE 60; RESP 20; TEMP 37.1; O2SAT 93
[2022-05-09] MEDS: HYDROcodone/acetaminophen (*CRX) 5-325 MG TABLET 1 TAB PO (05:03)
[2022-05-09] MEDS: ASPIRIN 81 MG CHEWABLE TABLET PO (07:59)
[2022-05-09 08:00] VITALS: PULSE 72
[2022-05-09] MEDS: lisinopriL 20 MG TABLET PO (08:00)
[2022-05-09] MEDS: PANTOPRAZOLE 40 MG TABLET PO (08:00)
[2022-05-09] MEDS: METOPROLOL TARTRATE 12.5 MG TABLET PO (08:00)
[2022-05-09] MEDS: ENOXAPARIN 40 MG/0.4 ML SYRINGE SUB-Q (08:01)
--- NOTE | 2022-05-09 09:06 | PM.DS ---
DS: Admitting Diagnosis Discharge Date 05/09/22 Admitting Diagnosis Altered mental status DS: Discharge Diagnosis Discharge Diagnosis (1) Cholelithiasis and acute cholecystitis with obstruction: Code(s): K80.01 - Calculus of gallbladder with acute cholecystitis with obstruction Status: Deleted (2) Choledocholithiasis with acute cholecystitis: Code(s): K80.42 - Calculus of bile duct with acute cholecystitis without obstruction Status: Acute (3) Sepsis: Qualifiers: Sepsis acute organ dysfunction status: with acute organ dysfunction Sepsis type: sepsis due to unspecified organism Severe sepsis acute organ dysfunction type: encephalopathy Severe sepsis shock status: without septic shock Qualified Code(s): A41.9 - Sepsis, unspecified organism; R65.20 - Severe sepsis without septic shock; G93.40 - Encephalopathy, unspecified Code(s): A41.9 - Sepsis, unspecified organism Status: Acute (4) Bacteremia due to Klebsiella pneumoniae: Code(s): R78.81 - Bacteremia; B96.1 - Klebsiella pneumoniae [K. pneumoniae] as the cause of diseases classified elsewhere Status: Acute (5) Atrial fibrillation with RVR: Code(s): I48.91 - Unspecified atrial fibrillation Status: Acute (6) Abnormal LFTs: Code(s): R79.89 - Other specified abnormal findings of blood chemistry Status: Acute (7) Rhabdomyolysis: Code(s): M62.82 - Rhabdomyolysis Status: Acute (8) Metabolic encephalopathy: Code(s): G93.41 - Metabolic encephalopathy Status: Acute (9) Bradycardia: Code(s): R00.1 - Bradycardia, unspecified Status: Acute (10) Parkinsons: Code(s): G20 - Parkinson's disease Status: Acute (11) Hypertension: Code(s): I10 - Essential (primary) hypertension Status: Acute (12) Cholecystostomy care: Code(s): Z43.4 - Encounter for attention to other artificial openings of digestive tract Status: Deleted DS: Summary Hospital Course Reason for hospitalization: 71yo male with PD here for fevers and sepsis from acute cholecystitis. Please see H&P for details Hospital Course: The patient presented to the ER with altered mental status and met sepsis criteria with fever, tachycardia, leukocytosis and confusion. Cultures obtained, he received appropriate fluid resuscitation and was started on Primaxin and Vanco. LP was attempted but was unsuccessful (he has severe spinal stenosis per family). CXR was clear.? UA was not consistent with UTI and UCx negative. Lactic acid level normalized. Concern for GI source so CT A/P ordered showing GB edema and inflammatory changes. RUQ showing acute cholecystitis. GenSurg consulted.? Patient developed acute decline 04/28 with the development of AFib/RVR. He was urgently taken for percutaneous cholecystostomy tube placement.? Blood cultures growing Klebsiella. Bile culture also growing Klebsiella. ?Patient was started on amiodarone drip.? Cardiology consulted.? Likely AFib secondary to acute sepsis.? He was moved to the ICU. Patient stabilized. Choledocholithiasis noted on cholangiogram.? ERCP 05/05/22 showing multiple stones in the bile duct that were removed. GenSurg consulted for laproscopic cholecystectomy 05/06/22.? Patient tolerated the procedure well. He completed a course of IV antibiotics. Patient converted to normal sinus rhythm. Amiodarone stopped and he was continued on Lopressor. He did well with therapy. Diet advanced. Plan is for acute rehab placement. He was accepted by Dr Sanchez on 05/08. Discharge was held up due to staffing issues at the rehab facility. -- Cardiology did not feel the patient needed watermaster anticoagulation unless he develops Atrial Fibrillation again. -- Spoke with George about DVT prophylaxis after discharge. Plan to continue Lovenox 40mg SQ daily until patient is ambulatory at his baseline and at the discretion of the accepting physician. Status
--- NOTE | 2022-05-09 12:41 | PM.PNGS ---
Progress Note: A&P Assessment and Plan (1) Choledocholithiasis with acute cholecystitis: Code(s): K80.42 - Calculus of bile duct with acute cholecystitis without obstruction Status: Acute Assessment and Plan: patient to be discharged today. Doing very well. Follow-up with me in 2 weeks as ordered. (2) Chronic anticoagulation: Code(s): Z79.01 - jail (current) use of anticoagulants Status: Acute Assessment and Plan: Will be on prophylactic dose Lovenox post discharge until mobility much improved. Subjective Subjective Date/Time Seen: 05/09/22 12:41 Patient reports: no new complaints, tolerating a regular diet and afebrile Exam Const: General: comfortable GI: Inspection: non-distended and incision (Healing well) GI Palp: Yes Soft to palpation Objective Data Vital Signs Vital Signs: Vital Signs - 24 hr 05/08/22 13:12 05/08/22 16:00 05/08/22 19:45 Temperature 36.6 C 36.6 C Pulse Rate 53 L 55 L 60 Respiratory Rate 18 16 Blood Pressure 131/56 L 162/74 H Pulse Oximetry 96 98 Oxygen Delivery 05/08/22 20:51 05/09/22 03:54 05/09/22 08:00 Temperature 37.1 C Pulse Rate 72 60 72 Respiratory Rate 20 Blood Pressure 157/77 H Pulse Oximetry 93 Oxygen Delivery 05/09/22 08:00 Temperature Pulse Rate Respiratory Rate Blood Pressure Pulse Oximetry Oxygen Delivery Room Air Intake/Output Intake/Output: Intake & Output 05/06/22 05/07/22 05/08/22 05/09/22 23:59 23:59 23:59 23:59 Intake Total 1770 2258 810 390 Output Total 988 507 4688 2200 Balance [phone] -[phone] Meds/Results Medications: Active Medications Generic Name Dose Route Start Last Admin Trade Name Freq PRN Reason Stop Dose Admin Acetaminophen 500 mg 05/06/22 14:27 Acetaminophen 500 Mg Tablet PO Q6H PRN Mild Pain (1-3) or Fever Hydrocodone Bitart/Acetaminophen 1 tab 05/06/22 14:27 05/09/22 05:03 Hydrocodone/Acetaminophen (*Crx) 5-325 Mg Tablet PO 1 tab Q4H PRN Administration Pain Rated 4-6 Hydrocodone Bitart/Acetaminophen 1 tab 05/06/22 14:27 Hydrocodone/Acetaminophen (*Crx) 10-325 Mg Tablet PO Q4H PRN Pain Rated 7-10 Aspirin 81 mg 04/28/22 17:20 05/09/22 07:59 Aspirin 81 Mg Chewable Tablet PO 81 mg DAILY@0800 YINKA Administration Carbidopa/Levodopa 1 tablet 04/26/22 04:52 05/08/22 21:26 Carbidopa/Levodopa 25/250 Mg Tablet PO 1 tablet Q4H PRN Administration parkinson tremors Enoxaparin Sodium 40 mg 05/09/22 09:00 05/09/22 08:01 Enoxaparin 40 Mg/0.4 Ml Syringe SUB-Q 40 mg DAILY YINKA Administration Hydralazine HCl 10 mg 05/05/22 12:16 Hydralazine Hcl 20 Mg/Ml Vial IV PUSH Q8H PRN Blood Pressure - High Ibuprofen 800 mg in 200 mls @ 400 mls/hr 05/06/22 14:27 Caldolor 800 Mg/200 Ml IVPB Q6H PRN Pain Rated 4-6 Lisinopril 20 mg 05/05/22 09:00 05/09/22 08:00 Lisinopril 20 Mg Tablet PO 20 mg DAILY YINKA Administration Metoprolol Tartrate 12.5 mg 05/08/22 09:00 05/09/22 08:00 Metoprolol Tartrate 12.5 Mg Tablet PO 12.5 mg Q12HR YINKA Administration Ondansetron HCl 4 mg 05/06/22 14:27 Ondansetron Inj 4 Mg/2 Ml Vial IV PUSH Q4H PRN Nausea And Vomiting Pantoprazole Sodium 40 mg 05/07/22 09:00 05/09/22 08:00 Pantoprazole 40 Mg Tablet PO 40 mg QAM YINKA Administration Radiology Results: ITS Impressions Pelvis X-Ray 04/25/22 21:14 IMPRESSION: No acute osseous finding in the pelvis. Head CT 04/26/22 10:19 IMPRESSION: Cerebral atherosclerosis and chronic small vessel ischemic changes of cerebral white matter No acute intracranial finding Cervical Spine CT 04/26/22 10:38 IMPRESSION: Cervical spondylosis; no fracture or dislocation or locked facet Abdomen/Pelvis CT 04/27/22 14:19 IMPRESSION: Small right and trace left pleural effusions. Gallbladder wall edema with inflamma
[2022-05-09 14:00] VITALS: BP 134/64; PULSE 49; RESP 18; TEMP 36.5; O2SAT 96
== END 2022-05-09 16:45 | DRG 853 ==
LOC: ANHED 04-26 02:55 → ANHIMU 04-26 03:09 → ANH3MED 04-26 16:49 → ANHIMU 04-28 13:59 → ANHICU 04-28 16:11 → ANHIMU 04-29 18:49 → ANH2MED 05-03 04:16
PROVIDERS: Hospitalist; Internal Medicine; Internal Medicine Gastroenterology; Surgery; Admitting Provider Internal Medicine; Emergency Provider Emergency Medicine; PCP Family Medicine; Visit Provider Internal Medicine
PROC: 0FC98ZZ Extirpation of Matter from Common Bile Duct, Via Natural or Artificial Opening Endoscopic (ICD-10-PCS; CPT 43260; principal; 2022-05-05 11:45)
PROC: 0FT44ZZ Resection of Gallbladder, Percutaneous Endoscopic Approach (ICD-10-PCS; CPT 47562; principal; 2022-05-06 14:00)
DX: A41.59 Other Gram-negative sepsis (principal); G93.41 Metabolic encephalopathy; M62.82 Rhabdomyolysis; Z16.12 Extended spectrum beta lactamase (ESBL) resistance; K80.63 Calculus of gallbladder and bile duct with acute cholecystitis with obstruction; R65.20 Severe sepsis without septic shock; I48.91 Unspecified atrial fibrillation; I10 Essential (primary) hypertension; G20 Parkinson's disease; F41.9 Anxiety disorder, unspecified; R55 Syncope and collapse; R94.31 Abnormal electrocardiogram [ECG] [EKG]; R77.8 Other specified abnormalities of plasma proteins; R00.1 Bradycardia, unspecified; T44.7X5A Adverse effect of beta-adrenoreceptor antagonists, initial encounter; Z20.822 Contact with and (suspected) exposure to COVID-19; Z91.81 History of falling; E66.3 Overweight; Z68.30 Body mass index [BMI] 30.0-30.9, adult; B96.1 Klebsiella pneumoniae [K. pneumoniae] as the cause of diseases classified elsewhere
CPT/HCPCS: 36415; 47490; 47531; 51702; 62270; 70450; 71045; 72125; 72170; 74176; 74329; 76705; 80048; 80053; 80076; 80202; 81001; 82150; 82550; 82948; 83605; 83690; 83735; 83880; 84100; 84443; 84484; 85025; 85027; 85055; 85610; 85730; 86140; 86850; 86900; 86901; 87040; 87070; 87075; 87077; 87086; 87186; 87205; 87502; 88304; 92610; 93005; 93306; 94640; 96365; 96367; 96375; 97110; 97161; 97166; 97530; 97535; 99285; A9270; C1713; C1729; C9113; C9803; J0131; J0282; J0690; J0692; J0696; J0743; J1100; J1170; J1335; J1650; J1885; J2250; J3010; J3370; J3480; J7030; J7040; J7050; J7120; U0003; U0005

== ENCOUNTER 2022-05-11 11:03 | Emergency (ER) | payer OTHER, SELFPAY ==
[2022-05-11] VITALS (30 sets, daily range): BP systolic 139–196; BP diastolic 66–102; PULSE 51–65; RESP 12–19; TEMP 36.7; O2SAT 92–99
--- NOTE | ~2022-05-11 | US_ITS ---
EXAMINATION: US venous doppler [facility] DATE: 05/11/2022 13:53 INDICATION: Lower limb swelling. COVID positive. TECHNIQUE: Grayscale ultrasound images without and with compression and Doppler ultrasound images of the bilateral lower extremity veins were obtained. COMPARISON: None. FINDINGS: The visualized portions of right common femoral vein, profunda (deep) femoral vein, femoral vein, pop liteal vein, posterior tibial veins, peroneal veins, gastrocnemius vein and greater saphenous vein ou tflow are patent. Subcutaneous edema at the right calf. The visualized portions of left common femoral vein, profunda femoral vein, femoral vein, popliteal v ein, posterior tibial veins, peroneal veins, gastrocnemius vein and greater saphenous vein outflow ar e patent. Subcutaneous edema at the left calf. IMPRESSION: 1. No deep venous thrombosis in either lower limb. Reviewed, dictated and finalized at location A.
--- NOTE | ~2022-05-11 | CT_ITS ---
EXAMINATION: CTA chest PE protocol DATE: 05/11/2022 13:27 INDICATION: Chest tightness. Shortness of breath. TECHNIQUE: Computed tomography angiography (CTA) of the chest was performed with 100 mL Omnipaque-350 intravenous contrast timed to evaluate the pulmonary arteries. Coronal maximum intensity projection 3D-reconstructions were created by the technologist. Automated exposure control and iterative reconst ruction technique were employed. The dose-length product was 724.14 mGy-cm. COMPARISON: Chest single view 04/28/2022 FINDINGS: There are small pleural effusions, right worse than left. There are patchy groundglass and airspace opacities and septal thickening involving the upper lobes and right middle lobe. There is de pendent atelectasis bilaterally. The heart size is normal. There are coronary artery calcifications. No pericardial effusion. There is no pulmonary embolus. There are changes of recent cholecystectomy. There is a 3.7 x 2.4 cm fluid collection in the gallbladder fossa. There is mild thoracic spondylosis . IMPRESSION: 1. No pulmonary embolus. 2. Patchy groundglass and airspace opacities and septal thickening involving the upper lobes and righ t middle lobe, consistent with pneumonia. 3. Small pleural effusions, right worse than left. 4. 3.7 x 2.4 cm postoperative fluid collection in the gallbladder fossa. Reviewed, dictated and finalized at location A. IMPRESSION: 1. No pulmonary embolus. 2. Patchy groundglass and airspace opacities and septal thickening involving th e upper lobes and right middle lobe, consistent with pneumonia. 3. Small pleural effusions, right worse than left. 4. 3.7 x 2.4 cm postoperative fluid collection in the gallbladder fossa.
[2022-05-11 12:42] LABS: Basophils Percent Auto 0.6 % (0.2-1.2); Eosinophils Absolute Auto 0.1 K/mm3 (0-0.3); Hematocrit 34.2 % (42.0-52.0); Hemoglobin 10.9 g/dL (14.0-18.0); Immature Granulocyte Absolute 0.03 K/mm3 (0.00-0.031); Immature Granulocyte Percent A 0.4 % (0-0.5); Lymphocytes Absolute Auto 0.68 K/mm3 (0.9-3.2); Lymphocytes Percent Auto 9.7 % (18.3-44.2); Mean Corpuscular HGB Conc 31.9 g/dl (32-36); Mean Corpuscular Hemoglobin 31.4 pg (26-34); Mean Corpuscular Volume 98.6 fl (80-100); Mean Platelet Volume 10.7 fl (7.4-10.4); Monocytes Absolute Auto 0.9 K/mm3 (0.1-0.6); Monocytes Percent Auto 12.3 % (2.6-8.5); Neutrophils Absolute Auto 5.3 K/mm3 (1.3-6.7); Platelet Count Result 363 k/mm3 (150-375); Red Blood Count 3.47 M/mm3 (4.6-6.20); Red Cell Distribution Width 13.7 % (11.5-14.5)
[2022-05-11 12:52] LABS: INR 1.1; Partial Thromboplastin Time 32.2 SECONDS (22.3-36.8)
[2022-05-11 12:57] LABS: Alanine Aminotransferase 18 U/L (6-50); Albumin Level 3.2 g/dL (3.5-5.1); Alkaline Phosphatase 131 U/L (38-126); Anion Gap 8 mmol/L (8-16); Aspartate Amino Transferase 26 U/L (17-59); Blood Urea Nitrogen 15 mg/dL (9-20); Calcium 8.1 mg/dL (8.4-10.2); Carbon Dioxide 27 mmol/L (22-30); Chloride 100 mmol/L (98-107); Estimated CRCL calculation 77 ml/min; Estimated Glomerular Filt Rate > 60; Glucose 93 mg/dL (65-110); Potassium 3.7 mmol/L (3.4-5.0); Sodium 135 mmol/L (137-145)
--- NOTE | 2022-05-11 13:13 | ED.GENADULT ---
HPI - General Adult General Chief complaint: Unspecified Stated complaint: r leg warm to touch, abd tightness, md condon ct/us Time Seen by Provider: 05/11/22 11:09 Source: patient and old records reviewed Mode of arrival: EMS Limitations: no limitations History of Present Illness HPI narrative: Patient is a 71-year-old male who presents the ED via [facility] from [facility] for DVT/PE rule out. Patient is status post recent ERCP and laparoscopic cholecystectomy for choledocholithiasis and cholecystitis. He was discharged from the hospital here to the acute rehabilitation [facility]. Per report, patient had an episode of acute hypoxia last night, associated with shortness of breath. He was placed on 3 L nasal cannula with improvement of oxygen saturations. Per patient, he reports he thought the staff had placed a gait belt on him last night and he became panicked about this. He does state he had difficulty breathing last night due to the anxiety, but he denies any chest pain or difficulty breathing currently. He denies any abdominal pain, nausea, vomiting, fever. Per rehab report, patient was also sent here to rule out a DVT. Patient denies any BLE pain. Per records, he is currently receiving Lovenox daily until he is ambulating back to his baseline. Related Data Home Medications Medication Instructions Recorded Confirmed carbidopa 25 mg-levodopa 250 mg 1 - 2 tablet PO PRN PRN parkinson 04/26/22 04/26/22 tablet escitalopram oxalate 20 mg tablet 20 mg PO DAILY 04/26/22 04/26/22 pramipexole 0.25 mg tablet 0.25 mg PO PRN PRN parkinsons 04/26/22 04/26/22 Allergies Allergy/AdvReac Type Severity Reaction Status Date / Time No Known Allergies Allergy Verified 05/09/22 18:59 Review of Systems Review of Systems: CONSTITUTIONAL: Denies fever, chills, or sweats. CARDIOVASCULAR: Denies chest pain RESPIRATORY: Denies cough or dyspnea. GASTROINTESTINAL: Denies abdominal pain, nausea, vomiting. MUSCULOSKELETAL: Denies BLE pain. All systems reviewed & are unremarkable except as noted in HPI and below PMFSH Past Medical History Medical History (Updated 05/11/22 @ 15:58 by Ladonna Patel PA-C) Anxiety Bacteremia due to Klebsiella pneumoniae Choledocholithiasis with acute cholecystitis Hypertension Infection due to extended-spectrum [id number] Klebsiella oxytoca Neuropathy Parkinsons Surgical History Surgical History (Updated 05/11/22 @ 13:19 by Ladonna Patel PA-C) History of cholecystectomy History of ERCP History of lumbar surgery Family History Family History Father Throat cancer Hypertension Heart problem Sibling Mother Heart valve replaced Heart valve problem Social History Social History Social History: Patient denies any history of tobacco alcohol or illicit substance use. He lives with his girlfriend of 7 years. He uses a lift chair at home and ambulates with a walker. Surrogate decision maker: Daughter Smoking status: Never smoker Second hand tobacco smoke exposure: No Alcohol intake: former Spiritual care concerns: No Exam Narrative: GENERAL: Chronically ill-appearing, well-nourished, non-toxic, in no acute distress. HEAD: Normocephalic, atraumatic. NECK: Supple. No adenopathy, no masses. RESPIRATORY: Airway patent, respirations nonlabored. Clear to auscultation bilaterally, no rales, rhonchi, wheezing. CARDIOVASCULAR: Bradycardic with regular rhythm without murmurs, rubs, or gallops. Radial and pedal pulses 2+ and equal bilaterally. ABDOMINAL: Soft, no appreciable tenderness to palpation, nondistended, no hepatosplenomegaly. Normoactive BS. MUSCULOSKELETAL: Moves all extremities. Strength/ROM intact without gross deformities. Bilateral trace pitting edema, minimally more noticeable on right lower extremity. No calf tenderness.
--- NOTE | 2022-05-11 14:30 | ECG_ITS ---
Measurements Intervals [place] Rate: 57 P: -16 DE: 150 QRS: -8 QRSD: 96 T: 11 QT: 462 QTc: 453 Interpretive Statements SINUS BRADYCARDIA BASELINE ARTIFACT POSSIBLE RIGHT VENTRICULAR CONDUCTION DELAY [RSR (QR) IN V1/V2] NONSPECIFIC ST ABNORMALITY BORDERLINE ECG COMPARED TO ECG 05/02/2022 12:13:19 SINUS BRADYCARDIA NOW PRESENT Electronically Signed On 05-11-2022 16:39:44 CDT by Kar Vazquez M.D.
[2022-05-11 15:42] LABS: SARS-CoV-2 RNA PCR Negative
--- NOTE | 2022-05-11 16:40 | PC.NURSE ---
attempted to call [facility] about patient returning to facility and no answer X2
--- NOTE | 2022-05-11 16:42 | PC.NURSE ---
rn report called to [facility]
== END 2022-05-11 17:51 ==
PROVIDERS: Physician Assistant; Emergency Provider Emergency Medicine; PCP Family Medicine
DX: J18.9 Pneumonia, unspecified organism (principal); Z20.822 Contact with and (suspected) exposure to COVID-19; R00.1 Bradycardia, unspecified; F41.9 Anxiety disorder, unspecified; I10 Essential (primary) hypertension; G20 Parkinson's disease
CPT/HCPCS: 36415; 71275; 80053; 85025; 85610; 85730; 93005; 93970; 99284; C9803; Q9967; U0003; U0005

== ENCOUNTER 2022-06-09 11:05 | Inpatient (IN) | payer MEDICARE, OTHER, SELFPAY ==
[2022-06-09] VITALS (25 sets, daily range): BP systolic 120–164; BP diastolic 61–75; PULSE 45–79; RESP 16–26; TEMP 36.3–37.6; O2SAT 95–100; BMI 25.2
--- NOTE | ~2022-06-09 | CT_ITS ---
EXAMINATION: CT facial bones wo con DATE: 06/10/2022 07:31 INDICATION: Left facial swelling. TECHNIQUE: Computed tomography (CT) of the facial bones and maxillofacial region was performed withou t intravenous contrast. Automated exposure control and iterative reconstruction technique were employ ed. The dose-length product was 0.00 mGy-cm. COMPARISON: None. FINDINGS: There is left cheek and left periorbital soft tissue swelling. The orbits are normal. There is rightward deviation of the nasal septum. No fracture. There is mucosal thickening in the paranasa l sinuses. There is cerumen in the external auditory canals. The mastoid air cells are normal. There are multiple carious lesions in the teeth. IMPRESSION: 1. No fracture. 2. Dental disease. Reviewed, dictated and finalized at location A.
--- NOTE | ~2022-06-09 | CT_ITS ---
EXAMINATION: CT brain wo con DATE: 06/09/2022 11:37 INDICATION: Altered level of consciousness. TECHNIQUE: Computed tomography (CT) of the head was performed without intravenous contrast. The dose- length product was 681.00 mGy-cm. Automated exposure control and iterative reconstruction technique w ere employed. COMPARISON: CT dated 04/25/2022 FINDINGS: Mild generalized brain parenchymal volume loss. There are scattered mild periventricular an d subcortical white matter changes, most likely related to small vessel ischemic disease (microangiop athy). There is intracranial atherosclerosis. No acute intracranial hemorrhage, infarction, mass or m ass effect. No ventriculomegaly or midline shift. Paranasal sinuses and mastoids are pneumatized. No depressed skull fractures. IMPRESSION: 1. No acute intracranial abnormality. 2: Chronic age-related findings. Reviewed, dictated and finalized at location A.
--- NOTE | ~2022-06-09 | CT_ITS ---
EXAMINATION: CT cervical spine wo con DATE: 06/09/2022 11:37 INDICATION: Altered level of consciousness. TECHNIQUE: Computed tomography (CT) of the cervical spine was performed without intravenous contrast. Automated exposure control and iterative reconstruction technique were employed. The dose-length pro duct was 458.76 mGy-cm. COMPARISON: CT cervical spine 04/25/2022 FINDINGS: There is 11 degrees levoscoliosis of cervical spine. Vertebral body heights are normal. The re is mildly decreased disc height at C2-C3, moderately decreased disc height at C4-C5 and C5-C6, and severely decreased disc height at C6-C7. The following disc levels are specifically discussed: C2-C3: There is ankylosis of right uncovertebral joint with mild hypertrophy. There is mild left face t joint osteoarthritis. There is ankylosis of right facet joint with mild hypertrophy. There is mild right neural foraminal stenosis. There is no central canal stenosis. C3-C4: There is severe bilateral uncovertebral joint osteoarthritis. There is severe right and mild l eft facet joint osteoarthritis. There is mild bilateral neural foraminal stenosis. There is mild cent ral canal stenosis. C4-C5: There is severe bilateral uncovertebral joint osteoarthritis. There is severe bilateral facet joint osteoarthritis. There is mild right and moderate left neural foraminal stenosis. There is mild central canal stenosis. C5-C6: There is mild bilateral uncovertebral joint osteoarthritis. There is severe right and mild lef t facet joint osteoarthritis. There is mild right neural foraminal stenosis. There is mild central ca nal stenosis. C6-C7: There is severe bilateral uncovertebral joint osteoarthritis. There is mild bilateral facet rebecca int osteoarthritis. There is mild bilateral neural foraminal stenosis. There is mild central canal st enosis. C7-T1: There is no uncovertebral joint osteoarthritis. There is severe bilateral facet joint osteoart hritis. There is no neural foraminal stenosis. There is no central canal stenosis. IMPRESSION: 1. No fracture. 2. Severe cervical spondylosis. Reviewed, dictated and finalized at location A.
--- NOTE | ~2022-06-09 | XR_ITS ---
XR chest 1V portable 06/09/2022 12:27 Indication: Altered level of consciousness. Procedure: AP portable chest Comparison: 04/28/2022 Findings: Cardiomegaly with mild interstitial edema. No pleural effusion or pneumothorax. There is at herosclerosis. No acute osseous abnormality. Impression: 1: Cardiomegaly with mild interstitial edema. Reviewed, dictated and finalized at location A. Impression: 1: Cardiomegaly with mild interstitial edema.
--- NOTE | 2022-06-09 11:11 | ECG_ITS ---
Measurements Intervals [place] Rate: 76 P: 31 FL: 129 QRS: -17 QRSD: 98 T: 7 QT: 318 QTc: 358 Interpretive Statements SINUS RHYTHM LEFT ATRIAL ENLARGEMENT INCOMPLETE RIGHT BUNDLE BRANCH BLOCK NONSPECIFIC ST & T-WAVE ABNORMALITY- DIFFUSE LEADS BASELINE WANDER- I, II, III, AVR, AVF, V3, V5 BORDERLINE ECG COMPARED TO ECG 05/11/2022 16:11:17 HEART RATE HAS INCREASED NONSPECIFIC ST & T-WAVE ABNORMALITY- DIFFUSE LEADS NOW PRESENT Electronically Signed On 06-09-2022 12:21:17 CDT by Avtar Otoole D.O.
[2022-06-09] MEDS: SODIUM CHLORIDE 0.9% IV 1,000 ML 999 ML IV CONT (11:26)
[2022-06-09 12:24] LABS: Basophils Percent Auto 0.2 % (0.2-1.2); Hematocrit 33.5 % (42.0-52.0); Immature Granulocyte Absolute 0.06 K/mm3 (0.00-0.031); Immature Granulocyte Percent A 0.3 % (0-0.5); Lymphocytes Absolute Auto 0.47 K/mm3 (0.9-3.2); Lymphocytes Percent Auto 2.7 % (18.3-44.2); Mean Corpuscular HGB Conc 32.8 g/dl (32-36); Mean Corpuscular Hemoglobin 31.7 pg (26-34); Mean Corpuscular Volume 96.5 fl (80-100); Mean Platelet Volume 10.1 fl (7.4-10.4); Monocytes Absolute Auto 1.8 K/mm3 (0.1-0.6); Neutrophils Absolute Auto 15.3 K/mm3 (1.3-6.7); Neutrophils Percent Auto 86.8 % (45.5-73.1); Platelet Count Result 173 k/mm3 (150-375); Red Blood Count 3.47 M/mm3 (4.6-6.20); Red Cell Distribution Width 14.2 % (11.5-14.5); White Blood Count 17.6 K/mm3 (4.5-10.0)
[2022-06-09 12:25] LABS: Appearance Urine Cloudy (Clear); Bilirubin Urine 1+ (Negative); Blood Urine 3+ (Negative); Glucose Urine UA Negative (Negative); Ketones Urine 1+ mg/dL (Negative); Leukocyte Esterase Ur Trace LEU/UL (Negative); Nitrate Urine Positive (Negative); Protein Urine 2+ mg/dL (Negative); Specific Grav Ur >= 1.030 (1.001-1.035); pH Urine 5.5 (5.0-9.0)
[2022-06-09 12:27] LABS: Add Urine Microscopic? YES; Color Urine Dark Yellow (Yellow)
[2022-06-09 12:32] LABS: Bacteria Urine 1+ /hpf; Mucus Urine Heavy /lpf; Squamous Epithelial Cell Urine Rare /hpf (Few); WBC Urine >75 /hpf
[2022-06-09 12:40] LABS: INR 1.3; Lactic Acid Reflex 1.9 mmol/L (0.7-2.0); Prothrombin Time 15.4 Seconds (11.1-14.7)
[2022-06-09 12:41] LABS: Partial Thromboplastin Time 30.6 SECONDS (22.3-36.8)
[2022-06-09 12:44] LABS: Alanine Aminotransferase 15 U/L (6-50); Albumin Level 3.6 g/dL (3.5-5.1); Alkaline Phosphatase 99 U/L (38-126); Anion Gap 9 mmol/L (8-16); Aspartate Amino Transferase 68 U/L (17-59); Bilirubin,Total 1.2 mg/dL (0.2-1.3); Blood Urea Nitrogen 19 mg/dL (9-20); CRP 3.7 mg/dL (<1.0); Calcium 8.6 mg/dL (8.4-10.2); Carbon Dioxide 22 mmol/L (22-30); Chloride 107 mmol/L (98-107); Estimated CRCL calculation 65 ml/min; Estimated Glomerular Filt Rate > 60; Glucose 108 mg/dL (65-110); Potassium 3.4 mmol/L (3.4-5.0); Sodium 138 mmol/L (137-145)
[2022-06-09 13:05] LABS: SARS-CoV-2 RNA PCR Negative
--- NOTE | 2022-06-09 13:14 | ED.GENADULT ---
HPI - General Adult General Chief complaint: Altered Mental Status Stated complaint: pain all over Time Seen by Provider: 06/09/22 11:59 History of Present Illness HPI narrative: Patient is a 71-year-old male who presents to the ER with new confusion/altered mental status. Patient lives at home by himself and his home health went to check on him today and he was laying there acutely confused. Last time he was seen was yesterday evening. Patient has history of Parkinson's. He was recently hospitalized with a Klebsiella urinary tract infection. Patient found to have elevated temperature today. Patient is alert to self and date but not to situation or place. Patient does have some abrasions to his left face and is unsure if there was trauma. Related Data Home Medications Medication Instructions Recorded Confirmed pramipexole 0.25 mg tablet 0.25 mg PO PRN PRN parkinsons 04/26/22 06/09/22 carbidopa 25 mg-levodopa 250 mg 1 tablet PO QID PRN PARKINSONS 06/09/22 06/09/22 tablet escitalopram oxalate 20 mg tablet 20 mg PO DAILY 06/09/22 06/09/22 hydralazine 50 mg tablet 50 mg PO TID 06/09/22 06/09/22 pantoprazole 40 mg tablet,delayed 40 mg PO QAM PRN gerd 06/09/22 06/09/22 release Allergies Allergy/AdvReac Type Severity Reaction Status Date / Time No Known Allergies Allergy Verified 05/09/22 18:59 Review of Systems Review of Systems: ROS unobtainable: Yes unobtainable due to mental status [facility] Past Medical History Medical History (Updated 06/09/22 @ 21:50 by Fausto Ferreira MD) Anxiety Bacteremia due to Klebsiella pneumoniae Choledocholithiasis with acute cholecystitis Hypertension Infection due to extended-spectrum [id number] Klebsiella oxytoca Neuropathy Parkinsons Surgical History Surgical History (Updated 05/11/22 @ 13:19 by Ladonna Patel PA-C) History of cholecystectomy History of ERCP History of lumbar surgery Family History Family History Father Throat cancer Hypertension Heart problem Sibling Mother Heart valve replaced Heart valve problem Social History Social History (Updated 06/09/22 @ 20:12 by Erin Tabares PA-C) Social History: Surrogate medical decision maker: Code status: Full code. Smoking status: Never smoker Second hand tobacco smoke exposure: No Alcohol intake: former Substance use: never Substance use type: does not use Additional living arrangements comments: Lives with significant other of 7 years. Ambulates with a walker, has a lift chair. Spiritual care concerns: No Exam Narrative: GENERAL: Chronically ill-appearing, well-nourished, and in mild distress. HEAD: Normocephalic, atraumatic. EYES: PERRL and EOMI. ENT: Mucous membranes moist. Swelling left upper and lower lip with abrasion. CHEST: Clear to auscultation. No respiratory distress. HEART: Regular rate and rhythm. Normal peripheral pulses. ABDOMEN: Soft, nontender, nondistended. EXTREMITIES: Normal range of motion. No edema. SKIN: Warm, dry, no rash. NEURO: Alert and oriented x2. PSYCH: Normal mood and affect. Course Vital Signs Vital signs: Vital Signs Temperature 99.7 F H 06/09/22 11:11 Pulse Rate 79 06/09/22 11:11 Respiratory Rate 24 H 06/09/22 11:11 Blood Pressure 161/70 H 06/09/22 11:11 Pulse Oximetry 97 06/09/22 11:11 Oxygen Delivery Room Air 06/09/22 11:11 Temperature 97.4 F L 06/09/22 21:02 Pulse Rate 64 06/09/22 21:09 Respiratory Rate 18 06/09/22 21:02 Blood Pressure 164/64 H 06/09/22 21:02 Pulse Oximetry 98 06/09/22 21:02 Oxygen Delivery Room Air 06/09/22 17:00 Medical Decision Making Vital Signs Vital Signs: Vital Signs Temperature 99.7 F H 06/09/22 11:11 Pulse Rate 79 06/09/22 11:11 Respiratory Rate 24 H 06/09/22 11:11 Blood Pressure 161/70 H 06/09/22 11:11 Pulse Oximetry 97 06/09/22 11
--- NOTE | 2022-06-09 14:00 | PM.IMHP ---
H&P: HPI History of Present Illness Date/Time: 06/09/22 14:00 Chief Complaint: Altered mental status. Narrative: This is a 71-year-old male with history of Parkinson's disease, hypertension, heart failure with reduced ejection fraction (27% on TTE in April 2022), transient atrial fibrillation, and anxiety who presented to the ED via EMS from home for evaluation of altered mental status. He is known to the hospitalist service from a recent stay last month at which time he was treated for sepsis, acute cholecystitis with choledocholithiasis, rhabdomyolysis, and Klebsiella pneumoniae bacteremia. He was sent to [facility] on discharge and he has been home for couple of weeks. He lives alone but has caretakers that come in for a few hours 2 times a day to help out. He is apparently not able to get up and walk alone and spends most of his time in bed or in a chair. He wears depends or puts himself on a bedpan, and his caretakers help get him cleaned up when they come. This morning a home health nurse came to visit and he was found on the floor and appeared to be confused. He did not recall how he ended up on the floor and he cannot really provide me any more details at this time. Vital signs have been stable since arrival and he is afebrile. Workup in the emergency department with significant for a white blood cell count of 17.6, CRP 3.7, and concentrated urine which was nitrate and leukocyte esterase positive with 1+ bacteria, greater than 75 WBC, and heavy mucus with rare squamous cells. CT of the brain and cervical spine as well as a chest x-ray were unremarkable for acute findings. He is being admitted in this setting for IV fluids for urinary tract infection and closer monitoring. At the time my evaluation he has no specific complaints and he tells me that he has not noticed any burning with urination, urgency, hesitancy, or frequency. He does admit that he feels a bit confused, and he is especially confused as to how he ended up on the floor today. He has not had any hallucinations. He has swelling on the left side of his face including the lips. On exam there was evidence of bite jarrell on the lips. With further questioning he does not recall having any recent falls and he has no known history of seizure. Review of Systems Review of Systems: Twelve systems were reviewed. No fever, chills, or sweats. He denies headache. No visual changes. No focal weakness or paresthesias. No vertigo. He denies dysphagia and concerns for aspiration. No cough. No chest pain or shortness of breath. He denies abdominal pain, nausea, and vomiting. He has had loose stools for the last couple of days. Except as documented, all other systems were reviewed and are negative PMFSH Past Medical History Medical History (Updated 06/10/22 @ 00:06 by Erin Tabares PA-C) Anxiety Bacteremia due to Klebsiella pneumoniae (04/2022) Choledocholithiasis with acute cholecystitis (04/2022) Chronic anemia Heart failure with reduced ejection fraction Hypertension Neuropathy Parkinsons Transient atrial fibrillation (04/2022) Surgical History Surgical History History of cholecystectomy History of ERCP History of lumbar surgery Family History Family History Father Throat cancer Hypertension Heart problem Sibling Mother Heart valve replaced Heart valve problem Social History Social History (Updated 06/09/22 @ 23:55 by Erin Tabares PA-C) Social History: Healthcare power of contract attorney: Niesha Cristobal, daughter. Code status: Full code. Smoking status: Never smoker Second hand tobacco smoke exposure: No Alcohol intake: former Substance use: never Substance use type: does not use Additional living arrangements comments: The patient lives in his own home in [place]. Family members are reportedly nearby. He
--- NOTE | 2022-06-09 15:01 | PC.NURSE ---
Second set of blood cultures not drawn. This RN was notified that cultures were being drawn, however they never were. IV antibiotics were given prior to second set of cultures drawn. EVENS Ferreira notified, no further inventions needed at this time.
--- NOTE | 2022-06-09 17:05 | PC.NURSE ---
This patient, Bernard Cristobal, was admitted to Medical Room 347-. Patient/family oriented to hospital policies and general routines including ID bracelet, bed and alarms, visiting hours, pain management, procedures, bathroom and other care routines, personal items, smoking policy, room service/diet, and visiting hours. Information on how to activate the Rapid Response Team has been discussed. Patient/Family are encouraged to report perceived risks to care and to ask questions if they do not understand what they are told or what they should do.
[2022-06-09] MEDS: CARBIDOPA/LEVODOPA 25/250 MG TABLET 1 TABLET PO (20:58)
[2022-06-09] MEDS: METOPROLOL TARTRATE 12.5 MG TABLET PO (21:09)
[2022-06-10 00:07] LABS: Add Urine Microscopic? YES; Appearance Urine Cloudy (Clear); Bilirubin Urine 1+ (Negative); Blood Urine 3+ (Negative); Color Urine Brown (Yellow); Glucose Urine UA Negative (Negative); Ketones Urine 1+ mg/dL (Negative); Leukocyte Esterase Ur Negative LEU/UL (NEGATIVE); Nitrate Urine Positive (Negative); Protein Urine 2+ mg/dL (Negative); Specific Grav Ur >= 1.030 (1.001-1.035); pH Urine 5.5 (5.0-9.0)
[2022-06-10 00:24] LABS: Bacteria Urine Trace /hpf; Mucus Urine Few /lpf; Squamous Epithelial Cell Urine Rare /hpf (Few); WBC Urine 31-50 /hpf (0-3)
[2022-06-10 04:20] VITALS: BP 156/79; PULSE 65; RESP 18; TEMP 36.6; O2SAT 98
[2022-06-10] MEDS: ACETAMINOPHEN 500 MG TABLET PO (05:23)
[2022-06-10 05:55] LABS: Hematocrit 31.3 % (42.0-52.0); Hemoglobin 10.1 g/dL (14.0-18.0); Mean Corpuscular HGB Conc 32.3 g/dl (32-36); Mean Corpuscular Hemoglobin 31.5 pg (26-34); Mean Corpuscular Volume 97.5 fl (80-100); Mean Platelet Volume 10.2 fl (7.4-10.4); Platelet Count Result 139 k/mm3 (150-375); Red Blood Count 3.21 M/mm3 (4.6-6.20); Red Cell Distribution Width 14.1 % (11.5-14.5); White Blood Count 13.8 K/mm3 (4.5-10.0)
[2022-06-10 06:15] LABS: Anion Gap 10 mmol/L (8-16); Blood Urea Nitrogen 24 mg/dL (9-20); Calcium 8.6 mg/dL (8.4-10.2); Carbon Dioxide 25 mmol/L (22-30); Chloride 100 mmol/L (98-107); Estimated CRCL calculation 78 ml/min; Estimated Glomerular Filt Rate > 60; Glucose 87 mg/dL (65-110); Magnesium 2.1 mg/dL (1.6-2.3); Potassium 3.4 mmol/L (3.4-5.0); Sodium 135 mmol/L (137-145)
[2022-06-10] MEDS: ESCITALOPRAM OXALATE 10 MG TABLET 20 MG PO (09:10)
[2022-06-10] MEDS: CARBIDOPA/LEVODOPA 25/250 MG TABLET 1 TABLET PO ×4 (09:10→20:22)
[2022-06-10] MEDS: ASPIRIN 81 MG CHEWABLE TABLET PO (09:10)
[2022-06-10] MEDS: TOLNAFTATE 1% POWDER 45 GM BTL 1 APPLIC TOPICAL ×2 (09:11→20:24)
[2022-06-10] MEDS: hydrALAZINE HCL 50 MG TABLET PO ×3 (09:11→17:35)
[2022-06-10 09:12] VITALS: PULSE 59
[2022-06-10] MEDS: METOPROLOL TARTRATE 12.5 MG TABLET PO ×2 (09:12→20:22)
--- NOTE | 2022-06-10 10:44 | WPDNEUROLOGY ---
Neurology EEG Report General Information Date of Study: 06/10/22 TEST EEG DIAGNOSIS fall CONDITION OF RECORDING drowsy and sleep EEG NUMBER [id number] CLINICAL HISTORY patient unable to give any specific history. EEG DESCRIPTION background rhythm consists of low to medium voltage 6 to 7 hertz per 2nd theta, admixed with low-voltage 15 to 18 hertz per 2nd beta. bilateral symmetrical sleep activity seen during sleep. hyperventilation not done, photic stimulation not done, non paroxysmal. nonfocal .nonlateralizing. IMPRESSION mildly abnormal record due to the presence of bihemispheric slow activity and with absence of normal background rhythm ,could be consistent with diffuse organic a metabolic encephalopathy or else neuro degenerative process clinical correlation recommended .there is no evidence of seizure.
[2022-06-10 12:00] VITALS: BP 146/74; PULSE 55; RESP 16; TEMP 36.7; O2SAT 100
--- NOTE | 2022-06-10 14:29 | PM.IMPN ---
Progress Note: A&P Assessment and Plan (1) Metabolic encephalopathy: Code(s): G93.41 - Metabolic encephalopathy Status: Acute Assessment and Plan: No memory of the fall Not witnessed Telemetry EEG MRI (2) Contusion of lip: Code(s): S00.531A - Contusion of lip, initial encounter Status: Acute Assessment and Plan: PRN pain meds only. Ice as he wants. (3) Contusion of face: Code(s): S00.83XA - Contusion of other part of head, initial encounter Status: Acute Assessment and Plan: See above plan for #2 (4) Urinary tract infection: Code(s): N39.0 - Urinary tract infection, site not specified Status: Acute Assessment and Plan: Continue Rocephin Q24 hours. Will require different abx upon discharge. Pending urine cultures. (5) Chronic anemia: Code(s): D64.9 - Anemia, unspecified Status: Acute Assessment and Plan: Stable without any s/s of overt bleeding. H&H stable. Monitor labs and VS. (6) Hypertension: Code(s): I10 - Essential (primary) hypertension Status: Acute Assessment and Plan: Monitor labs and vitals and dose home meds. (7) Parkinsons: Code(s): G20 - Parkinson's disease Status: Acute Assessment and Plan: Continue home dose of Sinemet. Fall Precautions. PT/OT evaluation (8) Heart failure with reduced ejection fraction: Code(s): I50.20 - Unspecified systolic (congestive) heart failure Status: Acute Assessment and Plan: Per L[facility] pt. has CHF with EF of 27% as of 04/2022. Consider +Inotropic drug. Time Spent With Patient Time with patient: 15 - 25 minutes Subjective Date/time seen: 06/10/22 14:29 This pt was examined at the bedside in interval assessment since being admitted to the hospital after sustaining a GLF and having AMS last evening. He was found to have a UTI. He has bruising and swelling to his face. He has pain and a headache. In the ER it was found that he has a UTI. Treatment was started with Rocephin. Today he had an EEG that was found to be negative. We will keep him here pending results of his Urine culture. Pt. has no complaints of CP, Dyspnea, N/V/D. Review of Systems Review of Systems: All systems reviewed & are unremarkable except as noted in HPI and below Exam Const: General: comfortable and no acute distress HENMT: Ears: TM's normal bilaterally and TMs normal General nose exam: Normal nares present and no epistaxis Mouth: Yes moist mucous membranes Other: There is dried blood in the mouth and on the left side of the nose. The head shows signs of trauma with brusing across the left cheek. Eyes: General: appearance normal, both eyes and all related structures Sclera: sclerae normal Pupils: Equal, round and reactive pupils present EOM: EOMs intact bilaterally Neck: Neck: supple and no JVD Lymphatic: lymphadenopathy not noted Resp: Effort & Inspection: normal respiratory effort Auscultation: clear to auscultation bilaterally Cardio: Rate: regular rate Rhythm: regular rhythm Heart sounds: no gallops, no murmurs and no rubs GI: Inspection: non-distended GI Palp: Yes Soft to palpation, No Tenderness to palpation present (GI) and No Guarding due to palpation present (GI) Auscultation: normal bowel sounds Skin: General skin exam: normal color, no rashes or lesions noted and no erythema Lesions: no lesions noted Rashes: no rashes noted Wounds: wounds noted (bruising across the left side of face and swollen lip on left.) Neuro: General: No gait normal (shuffling gait secondary to parkinson's.) Speech: normal speech Motor exam (neuro): Abnormal motor strength present (Generalized weakness) Sensory Exam: normal sensation Other: essential tremor noted. Extrem: General: normal to inspection, no edema and no pedal edema Psych: Mental Status: mental status grossly normal Affect: normal affect
[2022-06-10 20:00] VITALS: PULSE 68; RESP 18; O2SAT 99
[2022-06-10 20:22] VITALS: BP 143/66; PULSE 60; PULSE 68; RESP 18; TEMP 36.6; O2SAT 99
[2022-06-11 04:51] VITALS: BP 159/63; PULSE 63; RESP 16; TEMP 36.4; O2SAT 99
[2022-06-11 05:37] LABS: Basophils Percent Auto 0.1 % (0.2-1.2); Eosinophils Absolute Auto 0.1 K/mm3 (0-0.3); Eosinophils Percent Auto 0.7 % (0-4.4); Hematocrit 30.8 % (42.0-52.0); Hemoglobin 10.1 g/dL (14.0-18.0); Immature Granulocyte Absolute 0.03 K/mm3 (0.00-0.031); Immature Granulocyte Percent A 0.3 % (0-0.5); Lymphocytes Absolute Auto 0.55 K/mm3 (0.9-3.2); Lymphocytes Percent Auto 4.9 % (18.3-44.2); Mean Corpuscular HGB Conc 32.8 g/dl (32-36); Mean Corpuscular Hemoglobin 31.7 pg (26-34); Mean Corpuscular Volume 96.6 fl (80-100); Mean Platelet Volume 10.5 fl (7.4-10.4); Monocytes Absolute Auto 0.9 K/mm3 (0.1-0.6); Monocytes Percent Auto 7.6 % (2.6-8.5); Neutrophils Absolute Auto 9.7 K/mm3 (1.3-6.7); Neutrophils Percent Auto 86.4 % (45.5-73.1); Platelet Count Result 145 k/mm3 (150-375); Red Blood Count 3.19 M/mm3 (4.6-6.20); Red Cell Distribution Width 13.7 % (11.5-14.5); White Blood Count 11.2 K/mm3 (4.5-10.0)
[2022-06-11 05:50] LABS: Alanine Aminotransferase 16 U/L (6-50); Albumin Level 3.1 g/dL (3.5-5.1); Alkaline Phosphatase 78 U/L (38-126); Anion Gap 6 mmol/L (8-16); Aspartate Amino Transferase 264 U/L (17-59); Bilirubin,Total 0.7 mg/dL (0.2-1.3); Blood Urea Nitrogen 24 mg/dL (9-20); Calcium 8.2 mg/dL (8.4-10.2); Carbon Dioxide 25 mmol/L (22-30); Chloride 103 mmol/L (98-107); Estimated CRCL calculation 78 ml/min; Estimated Glomerular Filt Rate > 60; Glucose 97 mg/dL (65-110); Potassium 3.4 mmol/L (3.4-5.0); Sodium 134 mmol/L (137-145)
[2022-06-11] MEDS: ESCITALOPRAM OXALATE 10 MG TABLET 20 MG PO (08:48)
[2022-06-11] MEDS: CARBIDOPA/LEVODOPA 25/250 MG TABLET 1 TABLET PO ×4 (08:48→20:22)
[2022-06-11] MEDS: ASPIRIN 81 MG CHEWABLE TABLET PO (08:48)
[2022-06-11 08:49] VITALS: PULSE 60
[2022-06-11] MEDS: METOPROLOL TARTRATE 12.5 MG TABLET PO ×2 (08:49→20:22)
[2022-06-11] MEDS: lisinopriL 20 MG TABLET PO (08:49)
[2022-06-11] MEDS: hydrALAZINE HCL 50 MG TABLET PO ×3 (08:49→17:17)
[2022-06-11] MEDS: TOLNAFTATE 1% POWDER 45 GM BTL 1 APPLIC TOPICAL ×2 (08:53→20:22)
--- NOTE | 2022-06-11 12:32 | PC.NURSE ---
On 06/11/22, the student, Marie Izaguirre, provided care and completed [facility] documentation on this patient. I have reviewed the student's documentation and agree with the findings.
[2022-06-11 14:00] VITALS: BP 130/61; PULSE 53; RESP 18; TEMP 37.2; O2SAT 100
--- NOTE | 2022-06-11 15:49 | PM.IMPN ---
Progress Note: A&P Assessment and Plan (1) Metabolic encephalopathy: Code(s): G93.41 - Metabolic encephalopathy Status: Acute Assessment and Plan: No memory of the fall Not witnessed Telemetry EEG (2) Contusion of lip: Code(s): S00.531A - Contusion of lip, initial encounter Status: Acute Assessment and Plan: PRN pain meds only. Ice as he wants. (3) Contusion of face: Code(s): S00.83XA - Contusion of other part of head, initial encounter Status: Acute Assessment and Plan: See above plan for #2 (4) Urinary tract infection: Code(s): N39.0 - Urinary tract infection, site not specified Status: Acute Assessment and Plan: Rocephin discontinued today and Ancef was started in it's place according to culture. Pt. may be discharged on Augmentin when ready to go. Culture grew out E.coli. Pending urine cultures. (5) Chronic anemia: Code(s): D64.9 - Anemia, unspecified Status: Acute Assessment and Plan: Stable without any s/s of overt bleeding. H&H stable. Monitor labs and VS. (6) Hypertension: Code(s): I10 - Essential (primary) hypertension Status: Acute Assessment and Plan: Monitor labs and vitals and dose home meds. (7) Parkinsons: Code(s): G20 - Parkinson's disease Status: Acute Assessment and Plan: Continue home dose of Sinemet. Fall Precautions. PT/OT evaluation was performed. Pt. refuses to go to a SNF or rehab. (8) Heart failure with reduced ejection fraction: Code(s): I50.20 - Unspecified systolic (congestive) heart failure Status: Acute Assessment and Plan: Per [facility] pt. has CHF with EF of 27% as of 04/2022. Consider +Inotropic drug. Time Spent With Patient Time with patient: 15 - 25 minutes Subjective Date/time seen: 06/11/22 9550 This pt. was examined at the bedside today in interval assessment. He has no complaints today other than stating he was weak. He states he did not do well with PT evaluation. I asked him if he would consider going to a SNF or Rehab after discharge for strengthening and he adamantly refuses, saying he will only go home. he has caregivers come in twice weekly. Other than weakness he denies any pains, dyspnea, N/V/headaches, dizziness, lightheadedness or other concerns. He is being treated for a UTI and his culture returned positive for E.coli sensitive to Cefazolin. He is receiving it Q8 hrs. Review of Systems Review of Systems: All systems reviewed & are unremarkable except as noted in HPI and below Exam Const: General: comfortable and no acute distress HENMT: Ears: TM's normal bilaterally and TMs normal General nose exam: Normal nares present and no epistaxis Mouth: Yes moist mucous membranes Other: There is dried blood in the mouth and on the left side of the nose. The head shows signs of trauma with brusing across the left cheek. Eyes: General: appearance normal, both eyes and all related structures Sclera: sclerae normal Pupils: Equal, round and reactive pupils present EOM: EOMs intact bilaterally Neck: Neck: supple and no JVD Lymphatic: lymphadenopathy not noted Resp: Effort & Inspection: normal respiratory effort Auscultation: clear to auscultation bilaterally Cardio: Rate: regular rate Rhythm: regular rhythm Heart sounds: no gallops, no murmurs and no rubs GI: Inspection: non-distended Auscultation: normal bowel sounds Skin: General skin exam: normal color, no rashes or lesions noted and no erythema Lesions: no lesions noted Rashes: no rashes noted Wounds: wounds noted (bruising across the left side of face and swollen lip on left.) Neuro: General: No gait normal (shuffling gait secondary to parkinson's.) Cranial nerves: Yes Equal, round and reactive pupils present Speech: normal speech Motor exam (neuro): Abnormal motor strength present (Generalized weakness) Sensory Exam: n
[2022-06-11 20:00] VITALS: PULSE 74; RESP 18; O2SAT 100
[2022-06-11 20:22] VITALS: PULSE 74
[2022-06-11] MEDS: ACETAMINOPHEN 500 MG TABLET PO (20:22)
[2022-06-11 22:00] VITALS: BP 150/76; PULSE 65; RESP 18; TEMP 36.6; O2SAT 100
[2022-06-12] VITALS: BP 150/76; PULSE 65; RESP 18; TEMP 36.6; O2SAT 100
[2022-06-12] MEDS: PRAMIPEXOLE 0.25 MG TABLET PO (00:59)
[2022-06-12] MEDS: ACETAMINOPHEN 500 MG TABLET PO (03:51)
[2022-06-12 05:39] LABS: Basophils Percent Auto 0.3 % (0.2-1.2); Eosinophils Absolute Auto 0.1 K/mm3 (0-0.3); Hematocrit 33.7 % (42.0-52.0); Immature Granulocyte Absolute 0.01 K/mm3 (0.00-0.031); Immature Granulocyte Percent A 0.1 % (0-0.5); Lymphocytes Absolute Auto 0.71 K/mm3 (0.9-3.2); Lymphocytes Percent Auto 10.3 % (18.3-44.2); Mean Corpuscular HGB Conc 32.6 g/dl (32-36); Mean Corpuscular Hemoglobin 31.5 pg (26-34); Mean Corpuscular Volume 96.6 fl (80-100); Mean Platelet Volume 10.2 fl (7.4-10.4); Monocytes Absolute Auto 0.6 K/mm3 (0.1-0.6); Monocytes Percent Auto 8.6 % (2.6-8.5); Neutrophils Absolute Auto 5.5 K/mm3 (1.3-6.7); Neutrophils Percent Auto 79.7 % (45.5-73.1); Platelet Count Result 169 k/mm3 (150-375); Red Blood Count 3.49 M/mm3 (4.6-6.20); Red Cell Distribution Width 13.6 % (11.5-14.5); White Blood Count 6.9 K/mm3 (4.5-10.0)
[2022-06-12 05:53] LABS: Alanine Aminotransferase 25 U/L (6-50); Albumin Level 3.2 g/dL (3.5-5.1); Alkaline Phosphatase 80 U/L (38-126); Anion Gap 8 mmol/L (8-16); Aspartate Amino Transferase 191 U/L (17-59); Bilirubin,Total 0.7 mg/dL (0.2-1.3); Blood Urea Nitrogen 19 mg/dL (9-20); Calcium 8.6 mg/dL (8.4-10.2); Carbon Dioxide 26 mmol/L (22-30); Chloride 104 mmol/L (98-107); Estimated CRCL calculation 87 ml/min; Estimated Glomerular Filt Rate > 60; Glucose 104 mg/dL (65-110); Magnesium 2.1 mg/dL (1.6-2.3); Potassium 3.8 mmol/L (3.4-5.0); Sodium 138 mmol/L (137-145)
[2022-06-12 06:00] VITALS: BP 160/79; PULSE 63; RESP 16; TEMP 36.6; O2SAT 99
--- NOTE | 2022-06-12 07:56 | PM.DS ---
DS: Admitting Diagnosis Discharge Date 06/12/2022 Admitting Diagnosis metabolic encephalopathy, contusions of lip, face and head, urinary tract infection, chronic anemia, hypertension, Parkinson's disease and heart failure with reduced ejection fraction DS: Discharge Diagnosis Discharge Diagnosis (1) Metabolic encephalopathy: Code(s): G93.41 - Metabolic encephalopathy Status: Acute Assessment and Plan: No memory of the fall Not witnessed Telemetry EEG did not demonstrate any epiletical activity according to Dr. Trevino. No further neurological workup was required. (2) Contusion of lip: Code(s): S00.531A - Contusion of lip, initial encounter Status: Acute Assessment and Plan: PRN pain meds only. Ice as he wants. (3) Contusion of face: Code(s): S00.83XA - Contusion of other part of head, initial encounter Status: Acute Assessment and Plan: See above plan for #2 (4) Urinary tract infection: Code(s): N39.0 - Urinary tract infection, site not specified Status: Acute Assessment and Plan: Rocephin discontinued today and Ancef was started in it's place according to culture. Pt. may be discharged on Augmentin when ready to go. Culture grew out E.coli. Pending urine cultures. (5) Chronic anemia: Code(s): D64.9 - Anemia, unspecified Status: Acute Assessment and Plan: Stable without any s/s of overt bleeding. H&H stable. Monitor labs and VS. (6) Hypertension: Code(s): I10 - Essential (primary) hypertension Status: Acute Assessment and Plan: Monitor labs and vitals and dose home meds. (7) Parkinsons: Code(s): G20 - Parkinson's disease Status: Acute Assessment and Plan: Continue home dose of Sinemet. Fall Precautions. PT/OT evaluation was performed. Pt. refuses to go to a SNF or rehab. Will have home health and has in home caregivers. Despite lengthy conversations with pt from this provider, RN and care coordination both the patient and the family neither give in to agree to encourage the SNF. (8) Heart failure with reduced ejection fraction: Code(s): I50.20 - Unspecified systolic (congestive) heart failure Status: Acute Assessment and Plan: Per LESLIE pt. has CHF with EF of 27% as of 04/2022. Consider +Inotropic drug. DS: Summary Hospital Course Reason for hospitalization: Altered Mental Status Hospital Course: This 71 year old male patient with significant past medical history of Parkinson's disease, hypertension, heart failure with a reduced ejection fraction of 27% as evidenced by TTE performed April 2022, paroxysmal atrial fibrillation and anxiety presented to the ED via EMS from home for AMS after he sustained a GLF and had obvious trauma to the face. He did not remember the fall initially, but he later told this provider that he had dropped his urinal and he bent over to pick it up and fell forward. CT of the brain and face were unremarkable for any findings of fractures. Workup in the ED demonstrated Leukocytosis of 17.6, CRP of 3.7, and concentrated urine with nitrates and leukocyte esterase positive with 1+ bacteria, greater than 75 wbc's and having mucus. He was admitted to the hospital for IV fluid hydration, and treatment of urinary tract infection that later returned positive for E coli that is sensitive to Augmentin. He received IV Ancef 2 days during hospitalization and will be transition to p.o. on discharge. Patient was evaluated by Physical therapy during his inpatient hospitalization and was deemed very weak and would benefit from rehabilitation, however despite lengthy discussion with this provider, patient's RN as well as care coordination with both the patient and the family the patient adamantly refuses to even entertain the idea of going to a rehab facility or sinus. Home health has been set for this patient to continue as well as he w
[2022-06-12 08:00] VITALS: BP 143/62; PULSE 56; RESP 20; TEMP 36.7; O2SAT 97
[2022-06-12 09:19] VITALS: PULSE 58
[2022-06-12] MEDS: METOPROLOL TARTRATE 12.5 MG TABLET PO (09:19)
[2022-06-12] MEDS: ESCITALOPRAM OXALATE 10 MG TABLET 20 MG PO (09:20)
[2022-06-12] MEDS: ASPIRIN 81 MG CHEWABLE TABLET PO (09:21)
[2022-06-12] MEDS: CARBIDOPA/LEVODOPA 25/250 MG TABLET 1 TABLET PO ×2 (09:21→12:46)
[2022-06-12] MEDS: lisinopriL 20 MG TABLET PO (09:21)
[2022-06-12] MEDS: hydrALAZINE HCL 50 MG TABLET PO ×2 (09:21→12:47)
[2022-06-12] MEDS: TOLNAFTATE 1% POWDER 45 GM BTL 1 APPLIC TOPICAL (09:23)
--- NOTE | 2022-06-12 14:06 | PCPTNOTE ---
Attempted to see patient for PT at this time, however patient declined. Patient reported he can't right now and that he is froze up (referring to his Parkinson's). Patient did ask to be repositioned in bed, assisted patient to get repositioned in bed.
== END 2022-06-12 16:50 | disposition home health service (06) | DRG 689 ==
LOC: ANHED 11:59 → ANH3MED 15:53
PROVIDERS: Emergency Medicine; Physician Assistant; Admitting Provider Family Medicine; Emergency Provider Emergency Medicine; PCP Family Medicine; Visit Provider Nurse Practitioner Adult Health
DX: N39.0 Urinary tract infection, site not specified (principal); G93.41 Metabolic encephalopathy; I50.22 Chronic systolic (congestive) heart failure; I11.0 Hypertensive heart disease with heart failure; S00.83XA Contusion of other part of head, initial encounter; S00.531A Contusion of lip, initial encounter; W19.XXXA Unspecified fall, initial encounter; I48.0 Paroxysmal atrial fibrillation; D64.9 Anemia, unspecified; B96.20 Unspecified Escherichia coli [E. coli] as the cause of diseases classified elsewhere; G62.9 Polyneuropathy, unspecified; G20 Parkinson's disease; F41.9 Anxiety disorder, unspecified; Z20.822 Contact with and (suspected) exposure to COVID-19; Z90.49 Acquired absence of other specified parts of digestive tract
CPT/HCPCS: 36415; 70450; 70486; 71045; 72125; 80048; 80053; 81001; 83605; 83735; 84443; 85025; 85027; 85610; 85730; 86140; 87040; 87077; 87086; 87186; 93005; 95816; 96361; 96365; 96375; 97162; 97165; 99285; A9270; C9803; G0378; G0379; J0131; J0690; J0696; J7030; U0003; U0005